=== PATIENT | female | born 1930 | race Caucasian/White ===

== ENCOUNTER → 2016-11-08 | Outpatient (CLI) | payer MEDICARE ==
--- NOTE | 2016-11-08 14:07 | US ---
EXAMINATION TYPE: US carotid duplex BILAT DATE OF EXAM: 11/08/2016 COMPARISON: NONE CLINICAL HISTORY: R42 VERTIGO,I65.23 CAROTID STENOSIS. Vertigo EXAM MEASUREMENTS: RIGHT: Peak Systolic Velocity (PSV) cm/sec ----- Right CCA: 93.0 ----- Right ICA: 109.5 ----- Right ECA: 96.3 ICA/CCA ratio: 1.2 RIGHT: End Diastole cm/sec ----- Right CCA: 14.9 ----- Right ICA: 25.4 ----- Right ECA: 0.0 LEFT: Peak Systolic Velocity (PSV) cm/sec ----- Left CCA: 76.5 ----- Left ICA: 109.5 ----- Left ECA: 139.9 ICA/CCA ratio: 1.4 LEFT: End Diastole cm/sec ----- Left CCA: 11.7 ----- Left ICA: 26.7 ----- Left ECA: 0.0 VERTEBRALS (direction of flow): Right Vertebral: Antegrade Left Vertebral: Antegrade No significant stenosis seen Some intimal thickening may be present within the right common carotid artery. Intimal thickening may be present within the left common carotid artery. IMPRESSION: 1. No significant flow-limiting stenosis. Criteria for Assigning % of Stenosis / Diameter reduction (Estimation based on the indirect measurements of the internal carotid artery velocities (ICA PSV). 1. Normal (no stenosis)=ICA PSV < 125 cm/s: ratio < 2.0: ICA EDV<40 cm/s. 2. Less than 50% stenosis=ICA PSV < 125 cm/s: ratio < 2.0: ICA EDV<40 cm/s. 3. 50 to 69% stenosis=ICA PSV of 125 to 230 cm/s: ration 2.0 ? 4.0: ICA EDV 40-100 cm/s. 4. Greater than 70% stenosis to near occlusion= ICA PSV > 230 cm/s: ratio > 4.0: ICA EDV > 100 cm/s. 5. Near occlusion= ICA PSV velocities may be low or undetectable: variable ratio and ICA EDV. 6. Total occlusion=unable to detect flow.
== END | disposition home or self-care (01) ==
LOC: RADUSWWP 13:34
PROVIDERS: ATTEND Family Medicine
DX: I65.23 Occlusion and stenosis of bilateral carotid arteries (principal)
CPT/HCPCS: 93880

== ENCOUNTER 2016-11-11 12:01 | Inpatient (IN) | payer MEDICARE ==
[2016-11-11] MEDS ORDERED: NITROGLYCERIN OINT 1 INCH/GM PACKET TOPICAL STA (12:23)
[2016-11-11] MEDS ORDERED: ASPIRIN 81 MG CHEW PO STA (12:23)
--- NOTE | 2016-11-11 12:27 | ED ---
General Adult HPI - General Chief complaint: Chest Pain Stated complaint: Chest Pain Time Seen by Provider: 11/11/16 12:09 Source: patient, family, RN notes reviewed Mode of arrival: wheelchair Limitations: altered mental status - History of Present Illness Initial comments: Patient is a pleasant 86-year-old female presenting to the emergency Department with chest pain. Patient is somewhat a poor story and and majority of history is taken from family. Patient did complain of some back discomfort earlier however this is a chronic problem and unchanged. Patient did have some chest discomfort around 8:30. Patient did appear to be slightly short of breath at that time. Patient states at this time discomfort is only with breaths. Patient does not feel short of breath at this time. Patient again states her back discomfort is chronic and unchanged. - Related Data Home Medications Medication Instructions Recorded Confirmed ALPRAZolam [Xanax] 0.25 mg PO BID 11/11/16 11/11/16 Aspirin 325 mg PO DAILY 11/11/16 11/11/16 Bimatoprost [Lumigan .01% Ophth 1 drop BOTH EYES BID 11/11/16 11/11/16 Soln] Cranberry Fruit Extract [Cranberry] 400 mg PO DAILY 11/11/16 11/11/16 Cyanocobalamin (Vitamin B-12) 1,000 mcg PO DAILY 11/11/16 11/11/16 [Vitamin B-12] Doxylamine Succinate [Unisom] 25 mg PO HS 11/11/16 11/11/16 Meclizine HCl 25 mg PO BID 11/11/16 11/11/16 Sertraline HCl [Zoloft] 100 mg PO DAILY 11/11/16 11/11/16 Simvastatin [Zocor] 20 mg PO DAILY 11/11/16 11/11/16 Travoprost [Travatan Z 0.004%] 1 drop BOTH EYES HS 11/11/16 11/11/16 Ubidecarenone [Co Q-10] 100 mg PO DAILY 11/11/16 11/11/16 Allergies Allergy/AdvReac Type Severity Reaction Status Date / Time No Known Allergies Allergy Verified 11/11/16 12:18 Review of Systems ROS Statement: Those systems with pertinent positive or pertinent negative responses have been documented in the HPI. ROS Other: All systems not noted in ROS Statement are negative. Constitutional: Denies: fever Eyes: Denies: eye pain ENT: Denies: ear pain Respiratory: Denies: cough Cardiovascular: Reports: chest pain Endocrine: Denies: fatigue Gastrointestinal: Denies: abdominal pain Genitourinary: Denies: dysuria Musculoskeletal: Reports: back pain (Chronic) Skin: Denies: rash Neurological: Denies: weakness Past Medical History Past Medical History: CVA/TIA History of Any Multi-Drug Resistant Organisms: None Reported Past Surgical History: Orthopedic Surgery Additional Past Surgical History / Comment(s): BL hip replacement, cataract Past Psychological History: Depression Smoking Status: Never smoker Past Alcohol Use History: None Reported Past Drug Use History: None Reported General Exam Limitations: no limitations General appearance: alert, in no apparent distress Head exam: Present: atraumatic Eye exam: Present: normal appearance, PERRL ENT exam: Present: normal oropharynx Neck exam: Present: normal inspection Respiratory exam: Present: normal lung sounds bilaterally. Absent: chest wall tenderness Cardiovascular Exam: Present: regular rate, normal rhythm Expanded Peripheral pulses: 2+: Radial (R), Radial (L), Posterior Tibialis (R), Posterior Tibialis (L) GI/Abdominal exam: Present: soft. Absent: tenderness Extremities exam: Present: normal inspection. Absent: pedal edema, calf tenderness Back exam: Present: normal inspection Neurological exam: Present: alert Psychiatric exam: Present: normal affect, normal mood Skin exam: Present: normal color Course Vital Signs 11/11/16 11/11/16 11/11/16 12:04 12:42 13:07 Temperature 97.8 F Pulse Rate 97 78 Pulse Rate [ 78 Right Radial] Respiratory 17 18 Rate Blood Pressure 121/60 136/72 O2 Sat by Pulse 93 L 96 Oximetry 11/11/16 14:07 Temperature 98.9 F Pulse Rate 85 Pulse Rate [ Right Radial] Respiratory 18 Rate Blood Pressure 142/75 O2 Sat by Pulse 96 Oximetry - Reevaluation(s) Reevaluation #1: 11/11/16 12:27 No old EKG available 11/11/16 12:48 Repeat EKG shows normal sinus rhythm 82. DC 144. QRS 74. QT 384. QTC 448. Normal axis. Normal QRS. Early repolarization. EKG Findings - EKG Comments: EKG Findings:: Normal sinus rhythm 87. DC 138. QRS 74. QT 374. QTC 450. Normal axis. Normal QRS. Early repolarization changes. Medical Decision Making - Medical Decision Making Patient reevaluated and resting comfortably in bed. Only mild discomfort at this time. family updated on results and plan. Case was discussed in detail with Dr. Shin, who will admit his patient with cardiology consult. He states he did receive a recent urine culture from this patient showing E. coli and requests Levaquin. - Lab Data Result diagrams: 11/11/16 12:37 11/11/16 12:37 Lab Results 11/11/16 11/11/16 11/11/16 Range/Units 12:37 12:37 12:37 WBC 15.6 H (3.8-10.6) k/uL RBC 4.30 (3.80-5.40) m/uL Hgb 13.3 (11.4-16.0) gm/dL Hct 38.5 (34.0-46.0) % MCV 89.5 (80.0-100.0) fL MCH 30.8 (25.0-35.0) pg MCHC 34.4 (31.0-37.0) g/dL RDW 13.8 (11.5-15.5) % Plt Count 251 (150-450) k/uL Neutrophils % 90 % Lymphocytes % 5 % Monocytes % 4 % Eosinophils % 0 % Basophils % 0 % Neutrophils # 14.1 H (1.3-7.7) k/uL Lymphocytes # 0.8 L (1.0-4.8) k/uL Monocytes # 0.6 (0-1.0) k/uL Eosinophils # 0.0 (0-0.7) k/uL Basophils # 0.0 (0-0.2) k/uL PT (9.0-12.0) sec INR (<1.2) APTT (22.0-30.0) sec D-Dimer (<0.60) mg/L FEU Sodium 138 (137-145) mmol/L Potassium 4.3 (3.5-5.1) mmol/L Chloride 105 (98-107) mmol/L Carbon Dioxide 23 (22-30) mmol/L Anion Gap 10 mmol/L BUN 16 (7-17) mg/dL Creatinine 0.74 (0.52-1.04) mg/dL Est GFR (MDRD) Af Amer >60 (>60 ml/min/1.73 sqM) Est GFR (MDRD) Non-Af >60 (>60 ml/min/1.73 sqM) Glucose 136 H (74-99) mg/dL Calcium 9.2 (8.4-10.2) mg/dL Magnesium 2.0 (1.6-2.3) mg/dL Total Bilirubin 1.1 (0.2-1.3) mg/dL AST 24 (14-36) U/L ALT 27 (9-52) U/L Alkaline Phosphatase 101 (38-126) U/L Total Creatine Kinase 42 (30-135) U/L CK-MB (CK-2) 0.9 (0.0-2.4) ng/mL CK-MB (CK-2) Rel Index 2.1 Troponin I <0.012 (0.000-0.034) ng/mL NT-Pro-B Natriuret Pep pg/mL Total Protein 7.0 (6.3-8.2) g/dL Albumin 4.1 (3.5-5.0) g/dL 11/11/16 11/11/16 Range/Units 12:37 12:37 WBC (3.8-10.6) k/uL RBC (3.80-5.40) m/uL Hgb (11.4-16.0) gm/dL Hct (34.0-46.0) % MCV (80.0-100.0) fL MCH (25.0-35.0) pg MCHC (31.0-37.0) g/dL RDW (11.5-15.5) % Plt Count (150-450) k/uL Neutrophils % % Lymphocytes % % Monocytes % % Eosinophils % % Basophils % % Neutrophils # (1.3-7.7) k/uL Lymphocytes # (1.0-4.8) k/uL Monocytes # (0-1.0) k/uL Eosinophils # (0-0.7) k/uL Basophils # (0-0.2) k/uL PT 10.3 (9.0-12.0) sec INR 1.0 (<1.2) APTT 19.1 L (22.0-30.0) sec D-Dimer 0.60 H (<0.60) mg/L FEU Sodium (137-145) mmol/L Potassium (3.5-5.1) mmol/L Chloride (98-107) mmol/L Carbon Dioxide (22-30) mmol/L Anion Gap mmol/L BUN (7-17) mg/dL Creatinine (0.52-1.04) mg/dL Est GFR (MDRD) Af Amer (>60 ml/min/1.73 sqM) Est GFR (MDRD) Non-Af (>60 ml/min/1.73 sqM) Glucose (74-99) mg/dL Calcium (8.4-10.2) mg/dL Magnesium (1.6-2.3) mg/dL Total Bilirubin (0.2-1.3) mg/dL AST (14-36) U/L ALT (9-52) U/L Alkaline Phosphatase (38-126) U/L Total Creatine Kinase (30-135) U/L CK-MB (CK-2) (0.0-2.4) ng/mL CK-MB (CK-2) Rel Index Troponin I (0.000-0.034) ng/mL NT-Pro-B Natriuret Pep 785 pg/mL Total Protein (6.3-8.2) g/dL Albumin (3.5-5.0) g/dL - Radiology Data Radiology results: report reviewed (Computed tomography scan of the chest shows no pulmonary embolism. Possible mild CHF/interstitial changes/atelectasis/ consolidation.), image reviewed (Two-view chest x-ray shows mild cardiomegaly.) Disposition Clinical Impression: Chest pain, Urinary tract infection Disposition: ADMITTED IP TO THIS HOSP Referrals: Nima Shin MD [Primary Care Provider] - 1-2 days Decision Time: 15:30
[2016-11-11 13:04] LABS: Basophils % (A) 0 %; CHCM 33.7; Eosinophils % (A) 0 %; HCT 38.5 % (34.0-46.0); HDW 2.75; HGB 13.3 gm/dL (11.4-16.0); Luc # (Auto) 0.08; Luc % (Auto) 1; Lymphocytes # (A) 0.8 k/uL (1.0-4.8); Lymphocytes % (A) 5 %; MCH 30.8 pg (25.0-35.0); MCHC 34.4 g/dL (31.0-37.0); MCV 89.5 fL (80.0-100.0); Monocytes # (A) 0.6 k/uL (0-1.0); Monocytes % (A) 4 %; Neutrophils # (A) 14.1 k/uL (1.3-7.7); Neutrophils % (A) 90 %; RDW 13.8 % (11.5-15.5); WBC 15.6 k/uL (3.8-10.6)
[2016-11-11 13:09] LABS: ALT 27 U/L (9-52); AST 24 U/L (14-36); Alkaline Phosphatase 101 U/L (38-126); Anion Gap 10 mmol/L; Blood Urea Nitrogen 16 mg/dL (7-17); Calcium 9.2 mg/dL (8.4-10.2); Carbon Dioxide 23 mmol/L (22-30); Chloride 105 mmol/L (98-107); Glucose 136 mg/dL (74-99); Non-African American GFR(MDRD) >60 (>60 ml/min/1.73 sqM); Potassium 4.3 mmol/L (3.5-5.1); Sodium 138 mmol/L (137-145); Total Bilirubin 1.1 mg/dL (0.2-1.3)
--- NOTE | 2016-11-11 13:11 | XR ---
EXAMINATION TYPE: XR chest 2V DATE OF EXAM: 11/11/2016 COMPARISON: NONE HISTORY: Intermittent chest pain for one month. TECHNIQUE: Frontal and lateral views of the chest are obtained. FINDINGS: Reticular interstitial changes are present bilaterally. There is elevated right hemidiaphra gm. There is right basilar linear scarring or atelectasis. There is no pleural effusion or pneumothor ax seen bilaterally. The cardiac silhouette size is mildly enlarged. The osseous structures are de mineralized. Underlying scoliosis is noted. Atherosclerotic change in abdominal aorta is present. IMPRESSION: Mild cardiomegaly with reticular interstitial changes bilaterally suggesting fibrosis, c an be confirmed with outside chest x-ray if available. No suspicious focal infiltrate is clearly seen .
[2016-11-11 13:14] LABS: Prothrombin Time 10.3 sec (9.0-12.0)
[2016-11-11 13:20] LABS: Creatine Kinase 42 U/L (30-135)
[2016-11-11 13:33] LABS: Creatine Kinase MB 0.9 ng/mL (0.0-2.4); Partial Thromboplastin Time 19.1 sec (22.0-30.0); Troponin I <0.012 ng/mL (0.000-0.034)
[2016-11-11] MEDS ORDERED: RX INFO: IV CONTRAST WAS GIVEN 1 EACH MISC MISCELLANE PRN (14:03)
--- NOTE | 2016-11-11 14:46 | CT ---
EXAMINATION TYPE: CT angio chest DATE OF EXAM: 11/11/2016 COMPARISON: NONE HISTORY: Chest pain/back pain-radiating into neck CT DLP: 488 mGycm. Automated Exposure Control for Dose Reduction was Utilized. CONTRAST: CTA scan of the thorax is performed with IV Contrast, patient injected with 100 mL of Omnipaque 300, pulmonary embolism protocol. MIP Images are created on CT scanner and reviewed. FINDINGS: LUNGS: Elevated right hemidiaphragm is present. There is background of moderate emphysematous change. Reticular interstitial changes bilaterally with groundglass opacity is suggestive of alveolar and in terstitial edema. Some mild scattered fibrosis is present. There is focal atelectasis or consolidatio n laterally in the right midlung. Respiratory motion artifact degradation is present. There is atelec tatic change or consolidation medially in the left lower lobe extending from hilum. No pleural effusi on or pneumothorax is present bilaterally. MEDIASTINUM: There is satisfactory enhancement of the pulmonary artery and its branches, there is no CT evidence for pulmonary embolism. There are no greater than 1 cm hilar or mediastinal lymph nodes. No significant pericardial effusion is seen. There is cardiomegaly with moderate left atrial and m ild to moderate left ventricular dilatation. Calcification along the mitral valve is present. Coronar y artery calcification is seen which is noted marker for coronary artery disease. Ascending aorta jeff sures 3.2 cm in diameter. Slightly ectatic course descending aorta is noted. OTHER: There is moderate size hiatal hernia. Underlying scoliosis in the lumbar spine is present. The re is multilevel spurring and disc space narrowing. IMPRESSION: 1. No CT evidence for pulmonary embolism. 2. Suspect CHF exacerbation as there is cardiomegaly with mild alveolar and interstitial edema felt p resent. Clinical correlation advised. There is background mild emphysematous change and scattered fib rosis with areas of focal atelectasis and/or consolidation present bilaterally. Clinical correlation to exclude acute infectious process advised.
[2016-11-11] MEDS ORDERED: NITROGLYCERIN SL TABS 0.4 MG TAB SUBLINGUAL PRN (15:39)
[2016-11-11] MEDS: LEVOFLOXACIN 750MG-D5W PMX 750 MG in DEXTROSE/WATER 1 150ML.BAG IVPB SCH (16:01)
[2016-11-11] MEDS: NITROGLYCERIN OINT 1 INCH/GM PACKET TOPICAL SCH (18:19)
[2016-11-11 19:32] LABS: Creatine Kinase 50 U/L (30-135)
[2016-11-11 19:45] LABS: Creatine Kinase MB 0.9 ng/mL (0.0-2.4); Troponin I <0.012 ng/mL (0.000-0.034)
[2016-11-11] MEDS ORDERED: NON-FORMULARY DRUG (Travoprost [Travatan Z 0.004%] 1 DROP) BOTH EYES SCH (21:00)
[2016-11-11] MEDS: LATANOPROST 0.005% OPHTH DROPS 2.5 ML BTL BOTH EYES SCH (21:07)
[2016-11-11] MEDS: traMADol 50 MG TAB PO PRN (21:08)
[2016-11-11] MEDS: MECLIZINE 25 MG TAB PO SCH (21:08)
[2016-11-11] MEDS: ATORVASTATIN 10 MG TAB PO SCH (21:08)
[2016-11-11] MEDS: SERTRALINE 100 MG TAB PO SCH (21:08)
[2016-11-12 00:39] LABS: Creatine Kinase 74 U/L (30-135)
[2016-11-12 00:53] LABS: Creatine Kinase MB 1.6 ng/mL (0.0-2.4); Troponin I <0.012 ng/mL (0.000-0.034)
[2016-11-12] MEDS: ALPRAZolam 0.25 MG TAB PO SCH ×3 (01:37→23:01)
[2016-11-12] MEDS: traMADol 50 MG TAB PO PRN ×2 (01:38→23:01)
[2016-11-12] MEDS: NITROGLYCERIN OINT 1 INCH/GM PACKET TOPICAL SCH ×2 (01:38→06:28)
[2016-11-12 04:57] LABS: Cholesterol 196 mg/dL (<200); HDL Cholesterol 55 mg/dL (40-60); Triglycerides 81 mg/dL (<150)
[2016-11-12] MEDS ORDERED: SODIUM CHLORIDE 0.9% 500 ML IV ONE (07:40)
[2016-11-12] MEDS ORDERED: IBUPROFEN 400 MG TAB PO PRN (08:26)
--- NOTE | 2016-11-12 08:29 | P.CON ---
Consult Note - . Consult date: 11/12/16 Assessment/Plan:: HISTORY OF PRESENTING ILLNESS: The patient is a pleasant 86-year-old female who presented with chest pain. Her ED notes majority of history is taken from family. Upon examination patient is seen resting comfortably in bed in no acute distress center at the bedside. She she complains vague symptoms of chest pain not associated with nausea, vomiting, dizziness, palpitations or diaphoresis. The pain is reproducible in nature and worse on deep inspiration. She denies any cardiac history although she is having history of dementia and is a poor historian. She was also found to have a urinary tract infection. EKG evaluation shows minor ST elevation, early repolarization. No old EKG computer for comparison, will request old EKG from Dr. Shin office. Patient's past medical history is: 1. CVA/TIA. 2. Vertigo. 3. Hyperlipidemia. 4. Depression. Patient's past surgical history is: 1. Bilateral hip replacement. 2. Cataract surgery. Patient's home medications include Zoloft 100 mg by mouth daily, Xanax 0.25 mg by mouth twice a day, Zocor 20 mg by mouth daily, meclizine 25 mg by mouth twice a day aspirin 325 mg by mouth daily. ALLERGIES: NKDA. SOCIAL HISTORY: Never smoker, denies alcohol use. FAMILY HISTORY: Patient denies. REVIEW OF SYSTEMS: No shortness of breath. No diaphoresis. He denies headache, dizziness, blurred vision, double vision. No dyspnea on exertion. Patient denies any stomach discomfort. No nausea, vomiting. No hematochezia. No hematemesis. Denies any black stools or blood in his stools. No syncope. No palpitations. No cough. No recent fever or chills. Denies dysuria or hematuria. No muscle weakness or numbness. PHYSICAL EXAMINATION: This is a 86-year-old female in no apparent distress at the time of my examination. Blood pressure 114/57, heart rate 70, respirations 18, temp 98.1, pulse oxygenation 94% % on room air. HEENT: Head is atraumatic, normocephalic. Pupils are equal, round. Sclerae anicteric. Conjunctivae are clear. Mucous membranes of the mouth are moist. Neck is supple. There is no jugular venous distention. No carotid bruit is heard. CHEST EXAMINATION: Lungs are clear to auscultation. Moderate chest wall tenderness is noted on palpation or with deep breathing. HEART EXAMINATION: Heart regular rate and rhythm. S1, S2 heard. No murmurs, gallops or rub. ABDOMEN: Soft, nontender. Bowel sounds are heard. No organomegaly noted. EXTREMITIES: 2+ peripheral pulses with no evidence of peripheral edema and no calf tenderness noted. NEUROLOGIC EXAMINATION: Patient is awake, alert and oriented x3. LABORATORY DATA: Hemoglobin 13.3, WBC 15.6, d-dimer 0.60, potassium 4.3, BUN 16 , creatinine 0.74, troponin negative 3, proBNP 785. FINAL ASSESSMENT AND PLAN: 1. Reproducible chest pain on deep inspiration. 2. Urinary tract infection. PLAN: Old EKG from Dr. Shin's office is normal sinus mechanism with no elevation or early repolarization. We will obtain echocardiogram, sedimentation rate, repeat 12-lead EKG. The possibility of pleural pericarditis cannot be ruled out at this time. Anti-inflammatory pain control will be added. We will continue to follow this patient and make changes based on her clinical course. Nurse Practitioner note has been reviewed, I agree with a documented findings and plan of care. Patient was seen and examined.
[2016-11-12] MEDS: ASPIRIN 325 MG TAB PO SCH (08:35)
[2016-11-12] MEDS: MECLIZINE 25 MG TAB PO SCH ×2 (08:35→23:01)
[2016-11-12] MEDS: SERTRALINE 100 MG TAB PO SCH (08:35)
--- NOTE | 2016-11-12 08:47 | HP ---
CHIEF COMPLAINT: Nonspecific chest pain. This is an 86-year-old white female who presented to the hospital with nonspecific chest pain and was evaluated, just did not feel good, was placed in the hospital accordingly. It had been going on for about a 24 to 48 period of time. She has no known allergies. Her medications include: 1. Aspirin 325 daily. 2. She takes Xanax 0.25 daily. 3. Cranberry vitamin b.i.d. 4. She is on Lumigan eye drops p.r.n. 5. Simvastatin 20 mg daily. 6. Antivert 25 three times a day. She recently had an urinary tract infection that was also positive. Came back for E. Coli. She was placed in the hospital now and started on antibiotics accordingly. She recently had a carotid Doppler at the hospital and has a moderate amount of obstruction. An appointment with Dr. Moreland is being set up. SURGICAL HISTORY: Basically is no surgery. FAMILY HISTORY: Noncontributory. SOCIAL HISTORY: Nondrinker and nonsmoker. Lives in a family home care setting. She does have a history of fair amount of vertigo, which has been long- standing. Patient is fairly new to me with minimal amount of information available. REVIEW OF SYSTEMS: CARDIOPULMONARY: Nonspecific discomfort, going through to the back with some shortness of breath with negative chest x-ray. No dyspnea. No orthopnea. No paroxysmal nocturnal dyspnea. GI: No hematemesis, melena or hematochezia. : Negative. NEUROMUSCULAR: Just some generalized weakness with some vertigo that has been going on for a fair amount of time. PHYSICAL EXAMINATION: Blood pressure was 128/80, respiratory rate was 18, heart rate was in the 70s, temperature 98. EYES: Pupils are equal, round and reactive to light and accommodation. ENT showed tympanic membranes and pharynx to be negative. Neck is supple with midline tracheal. CHEST: Essentially clear to auscultation. HEART: Sinus rhythm. ABDOMEN: Soft, nontender with no organomegaly. Extremities have arthritis in her knees and her hands. Neurological examination is within normal limits. ASSESSMENT: 1. Nonspecific chest pain, rule out cardiac event. 2. History of labyrinthitis, chronic. 3. Some carotid stenosis. Plan at this time a day we will evaluate her, put her in overnight. Her basic lab work was within normal limits. Cardiology to see the patient in the morning. Will put her on a monitor. Prognosis is guarded. MTDD
--- NOTE | 2016-11-12 08:50 | P.PN ---
Progress Note - Text This is Dr. James dictating a brief addendum to the H&P dictated by nurse practitioner. Patient's chest x-ray and also on computed tomography scan showing interstitial changes consistent with fibrosis or inflammation process. Clinically patient does have rales at both bases. This could be on the basis of pulmonary fibrosis. A pulmonary consult is recommended for further evaluation. Her BNP level is within normal limits. The likelihood of congestive heart failure. Seems to be less likely. Echocardiogram is also being done.
[2016-11-12] MEDS: LATANOPROST 0.005% OPHTH DROPS 2.5 ML BTL BOTH EYES SCH ×2 (09:49→23:00)
[2016-11-12] MEDS ORDERED: LACTATED RINGERS 1,000 ML IV STA (11:48)
[2016-11-12] MEDS: SODIUM CHLORIDE TAB 1 GM TAB PO SCH ×3 (12:32→17:43)
[2016-11-12] MEDS: LEVOFLOXACIN 750MG-D5W PMX 750 MG in DEXTROSE/WATER 1 150ML.BAG IVPB SCH (16:29)
--- NOTE | 2016-11-12 17:14 | PN ---
Today she has had nonspecific chest pain. She does have some dementia but not a severe amount. She said it was nonspecific in the chest and continued throughout. Of interest, the most important thing is I saw the glimpse of pain on her face while she was there. I palpated her lateral chest wall in between especially ribs 4, 5 and 6 with pain and palpation. Her cardiac enzymes are negative. She did have some elevation of BNP. She does not have any previous history of big time heart failure in the past so she is being evaluated for that accordingly. Her troponins have been negative throughout. Her past medical history is that of some early dementia. She has hyperlipidemia. She has Xanax. She has some depression which is with some severe vertigo. Of interest, she just developed a urinary tract infection, came back positive yesterday, tried to call the family and found out that she was here in the emergency room. At this point of view, cardiopulmonary just nonspecific chest pain accordingly, back pain without fall. No shortness of breath. No dyspnea. No orthopnea. No paroxysmal nocturnal dyspnea. GI: No hematemesis, melena or hematochezia. : Negative. Neuromuscular: No problems with muscle strength. Able to walk on her own with some vertigo though. Psychiatric: Dementia with worse owner at night. Occasional depression which has been stable with anxiety that has been well controlled. She also has severe arthritis especially in the back. Physical examination right now is alert white female, well oriented to person and place and things. Says the pain has been nonspecific, just some chest pain. Blood pressure at this time shows a blood pressure of 115/80. Temperature 95.8. Pulse rate 75. Respiratory rate 18. Let it be noted that at midnight, her blood pressure was 86/40 and was not rechecked again on this floor by Essence the nurse at 4:00 a.m. and it was 83/43. At that time, nitro patch was removed according to the day nurse. I was never called about the situation. EYES: Pupils are equal, round and reactive to light and accommodation. ENT: Showed tympanic membranes. Pharynx to be negative. Neck is supple with midline trachea. Chest essentially clear to auscultation. She has palpable left lateral anterior chest pain to minimal palpation. Abdomen, soft. Heart is sinus rhythm. 2/6 holosystolic murmur over the aortic area. Chest is essentially clear to auscultation. Heart is sinus rhythm. Abdomen soft, nontender with no organomegaly. Lower extremities she has arthritis in her hands and her legs. 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 No palpable pain in the back on palpation. ASSESSMENT: 1. Chest pain, questionable etiology, probably chest wall. 2. Some progressive dementia. 3. History of vertigo, longstanding. 4. She has some carotid obstruction which needs to be cared for on an outpatient basis. 5. She also had a positive urine culture. Cardiology is to evaluate her. At this time, blood pressure is stable. Please refer to my orders. MTDD
[2016-11-12] MEDS: ATORVASTATIN 10 MG TAB PO SCH (23:01)
[2016-11-13] MEDS: SODIUM CHLORIDE TAB 1 GM TAB PO SCH ×3 (08:38→19:28)
[2016-11-13] MEDS: MECLIZINE 25 MG TAB PO SCH ×2 (08:38→20:16)
[2016-11-13] MEDS: ASPIRIN 325 MG TAB PO SCH (08:38)
[2016-11-13] MEDS: ALPRAZolam 0.25 MG TAB PO SCH ×2 (08:38→20:16)
[2016-11-13] MEDS: SERTRALINE 100 MG TAB PO SCH (08:38)
[2016-11-13] MEDS: LATANOPROST 0.005% OPHTH DROPS 2.5 ML BTL BOTH EYES SCH ×2 (08:39→20:16)
--- NOTE | 2016-11-13 10:02 | ECHOF ---
Referral Reason:chest pain MEASUREMENTS -------- HEIGHT: 157.5 cm WEIGHT: 61.7 kg BP: 114/57 RVIDd: 2.4 cm (< 3.3) IVSd: 0.9 cm (0.6 - 1.1) LVIDd: 4.4 cm (3.9 - 5.3) LVPWd: 1.0 cm (0.6 - 1.1) IVSs: 1.6 cm LVIDs: 2.3 cm LVPWs: 1.5 cm LAESV Index (A-L): 29.10 ml/m Ao Diam: 3.0 cm (2.0 - 3.7) AV Cusp: 1.5 cm (1.5 - 2.6) LA Diam: 4.3 cm (2.7 - 3.8) MV EXCURSION: 12.842 mm (> 18.000) MV EF SLOPE: 109 mm/s (70 - 150) EPSS: 1.2 cm MV E García: 1.11 m/s MV DecT: 276 ms MV A García: 0.96 m/s MV E/A Ratio: 1.16 AR PHT: 739 ms RAP: 5.00 mmHg RVSP: 15.58 mmHg FINDINGS -------- Sinus rhythm. This was a technically adequate study. Overall left ventricular systolic function is normal with, an EF between 55 - 60 %. The right ventricle is normal in size and function. LA is midly dilated 29-33ml/m2. The right atrium is normal in size. Aortic valve is trileaflet and is mildly thickened. Trace to mild aortic regurgitation. The aortic pressure half-time by doppler is 739ms. There is no evidence of aortic stenosis. The mitral valve leaflets are mildly thickened. Mild mitral annular calcification present. There is trace to mild mitral regurgitation. Trace tricuspid regurgitation present. There is no evidence of pulmonary hypertension. The right ventricular systolic pressure, as measured by Doppler, is 15.58mmHg. Trace/mild (physiologic) pulmonic regurgitation. The aortic root size is normal. Normal inferior vena cava with normal inspiratory collapse consistent with estimated right atrial pressure of 5 mmHg. The pericardium is normal. There is no pericardial effusion. CONCLUSIONS -------- 1. Sinus rhythm. 2. There is trace to mild mitral regurgitation. 3. Trace tricuspid regurgitation present. 4. There is no evidence of pulmonary hypertension. 5. The right ventricular systolic pressure, as measured by Doppler, is 15.58mmHg. 6. Trace/mild (physiologic) pulmonic regurgitation. 7. The aortic root size is normal. 8. There is no pericardial effusion. 9. This was a technically adequate study. 10. Overall left ventricular systolic function is normal with, an EF between 55 - 60 %. 11. LA is midly dilated 29-33ml/m2. 12. Aortic valve is trileaflet and is mildly thickened. 13. Trace to mild aortic regurgitation. 14. The aortic pressure half-time by doppler is 739ms. 15. The mitral valve leaflets are mildly thickened. 16. Mild mitral annular calcification present. PLATEN PRESS FEEDER: Frederic Silvestre RDCS
[2016-11-13] MEDS ORDERED: FUROSEMIDE 10 MG/ML 2 ML VIAL IV ONE (10:41)
[2016-11-13] MEDS ORDERED: METOPROLOL TARTRATE 12.5 MG TAB PO STA (10:43)
[2016-11-13] MEDS: ALBUTEROL NEBULIZED 2.5 MG/3 ML INHALATION SCH ×3 (11:30→20:18)
--- NOTE | 2016-11-13 12:09 | XR ---
EXAMINATION TYPE: XR chest 2V DATE OF EXAM: 11/13/2016 COMPARISON: 11/11/16 HISTORY: Shortness of breath FINDINGS: Noted is pulmonary venous congestion with scattered infiltrates. There is also cardiomegaly and small effusions. IMPRESSION: Findings compatible with stable congestive failure. Infiltrates of other etiology are not excluded. Clinical correlation and progress studies are recommended.
--- NOTE | 2016-11-13 16:52 | PN ---
Walked into her room today and she is wheezing. She had no chest pain or shortness of breath at night time and just started wheezing now. There is some evidence of pulmonary fibrosis on her chest x-ray. This was illustrated by Dr. James. That could have something to do with a little bit of her shortness of breath. Blood pressure is still staying down a little bit. We added basically salt to her diet. REVIEW OF SYSTEMS: She has shortness of breath. No chest pain. No orthopnea. No paroxysmal nocturnal dyspnea at this time. She does say though where I pushed on her chest before is tender which is the left anterior chest. GI: No hematemesis, melena or hematochezia. : Negative. Neuromuscular: Weakness in her arms and legs and lower leg and lower abdomen area. PHYSICAL EXAMINATION: Vital signs: Blood pressure 102/55. Heart rate is in the 80s. Respiratory rate is 18. Temperature is 98.2. Eyes: Pupils are equal , round and reactive to light and accommodation. ENT: Tympanic membranes and pharynx to be negative. Neck is supple with midline trachea. Chest essentially clear to auscultation except for some wheezing anteriorly. Early inspirations. Heart is sinus rhythm. No murmurs. Abdomen soft, nontender. No organomegaly. Room air at 94%. ASSESSMENT: 1. Chest pain, probably chest wall. 2. Pulmonary fibrosis. 3. Hypertension felt to be orthostatic hypotension. 4. Vertigo, probably secondary from labyrinthitis and hypotension. 5. Glaucoma which is stable. 6. 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 8. Carotid obstruction. PLAN: The carotid obstruction will be taken care of on an outpatient basis. We will increase salt intake. Updrafts with Albuterol 2.5 every six hours was added. Await further recommendations from cardiology. MIGUELINAD
[2016-11-13] MEDS: ATORVASTATIN 10 MG TAB PO SCH (20:16)
--- NOTE | 2016-11-14 06:20 | P.PN ---
Subjective Principal diagnosis: Chest pain and CHF This 86-year-old female was admitted to the hospital with complaints of pleuritic chest pain. Initial chest x-ray was showing findings of possible CHF versus pulmonary fibrosis. Today patient is noted to have wheezing. Examination showed jugular venous distention. Patient is not complaining of any shortness of breath, but she has dementia. I'm going to repeat the chest x- ray and also BNP levels. I'm going to treat her with Lasix IV 20 mg. If necessary, we'll continue the Lasix on a daily basis. Her echocardiogram showed normal LV function without any significant valvular abnormalities. The etiology for CHF is not entirely clear. Could be based on diastolic dysfunction. The possibility of concomitant pulmonary fibrosis is to be constricted. We'll continue to monitor her with repeat chest x-rays. Objective - Vital Signs Vital signs: Vital Signs Temp 98.1 F 11/14/16 04:00 Pulse 80 11/14/16 04:00 Resp 18 11/14/16 04:00 BP 104/57 11/14/16 04:00 Pulse Ox 95 11/14/16 04:00 Intake & Output 11/13/16 11/13/16 11/14/16 06:59 18:59 06:59 Intake Total 240 640 200 Balance 240 640 200 Intake: Oral 240 640 200 Other: Voiding Method Toilet Toilet Toilet # Voids 2 1 1 - Labs CBC & Chem 7: 11/11/16 12:37 11/11/16 12:37 Assessment and Plan (1) Diastolic CHF, acute Status: Acute (2) Dementia Status: Acute (3) Chest pain Status: Acute Plan: We'll get a repeat chest x-ray and BNP levels. I will treat her with IV Lasix. Make sure that patient is KVO and IV fluids. Further recommendation will depend upon the clinical course
[2016-11-14] MEDS: ALBUTEROL NEBULIZED 2.5 MG/3 ML INHALATION SCH ×4 (07:14→19:25)
[2016-11-14 07:22] LABS: Basophils % (A) 0 %; CH 30.1; CHCM 33.6; Eosinophils # (A) 0.3 k/uL (0-0.7); Eosinophils % (A) 3 %; HCT 36.6 % (34.0-46.0); HDW 2.79; HGB 12.3 gm/dL (11.4-16.0); Luc # (Auto) 0.14; Luc % (Auto) 2; Lymphocytes % (A) 23 %; MCH 30.2 pg (25.0-35.0); MCHC 33.6 g/dL (31.0-37.0); Mean Platelet Volume 7.6; Monocytes # (A) 0.6 k/uL (0-1.0); Monocytes % (A) 6 %; Neutrophils % (A) 66 %; RBC 4.07 m/uL (3.80-5.40); RDW 13.8 % (11.5-15.5); WBC (Perox) 9.39
[2016-11-14 07:47] LABS: ALT 28 U/L (9-52); AST 28 U/L (14-36); Alkaline Phosphatase 74 U/L (38-126); Anion Gap 8 mmol/L; Blood Urea Nitrogen 14 mg/dL (7-17); Calcium 8.5 mg/dL (8.4-10.2); Carbon Dioxide 23 mmol/L (22-30); Chloride 105 mmol/L (98-107); Glucose 89 mg/dL (74-99); Non-African American GFR(MDRD) >60 (>60 ml/min/1.73 sqM); Potassium 3.8 mmol/L (3.5-5.1); Sodium 136 mmol/L (137-145); Total Bilirubin 0.8 mg/dL (0.2-1.3); Total Protein 5.8 g/dL (6.3-8.2)
[2016-11-14] MEDS: ALPRAZolam 0.25 MG TAB PO SCH ×2 (08:45→20:48)
[2016-11-14] MEDS: LATANOPROST 0.005% OPHTH DROPS 2.5 ML BTL BOTH EYES SCH ×2 (08:45→20:47)
[2016-11-14] MEDS: SERTRALINE 100 MG TAB PO SCH (08:45)
[2016-11-14] MEDS: ASPIRIN 325 MG TAB PO SCH (08:45)
[2016-11-14] MEDS: SODIUM CHLORIDE TAB 1 GM TAB PO SCH ×3 (08:45→20:47)
[2016-11-14] MEDS: MECLIZINE 25 MG TAB PO SCH ×2 (08:45→20:47)
[2016-11-14] MEDS: LEVOFLOXACIN 750MG-D5W PMX 750 MG in DEXTROSE/WATER 1 150ML.BAG IVPB SCH (08:50)
[2016-11-14] MEDS: BUDESONIDE 0.5 MG/2 ML NEBU INHALATION SCH ×2 (08:53→19:25)
[2016-11-14] MEDS ORDERED: FUROSEMIDE 10 MG/ML 2 ML VIAL IV SCH (09:00)
--- NOTE | 2016-11-14 11:50 | PN ---
86-year-old female came in with nonspecific chest pain that progressed to shortness of breath. In general, cardiac disease related with myocardial infarction was ruled out as was angina. The patient had continuous chest pain on the left chest wall. While here she developed increasing shortness of breath along with wheeze. It was felt that this was a mild asthma component. Chest x-ray showed evidence of congestive heart failure when her BNP also went up from 700 to 2500. She was then started on IV Lasix. At this time she is improving. She has less shortness of breath though there is some mild confusion. Also, patient did have an echocardiogram which showed an ejection fraction of 55-60 with no pulmonary hypertension noted. Left ventricular function was within normal limits and in general there was minimal valvular disease. REVIEW OF SYSTEMS: CARDIOPULMONARY: No shortness of breath, chest pain or orthopnea. No paroxysmal nocturnal dyspnea. GI: No hematemesis, melena, hematochezia. : Has been urinating good. NEUROMUSCULAR: Just aches and pains in the back and the arms related with age and arthritis per patient. Still some chest wall pain on palpation on the left side per patient. Aide noticed that the patient had a fair amount of confusion at night and obviously has some evidence of sundowners disease. At this time for vital signs her blood pressure is 104/57, heart rate is in the 80's, respiratory rate 18 with temperature 98.1, pulse ox on room air 95. EYES: Pupils are equal, round, reactive to light and accommodation. ENT: Show tympanic membranes and pharynx to be negative. NECK: Supple with midline trachea. CHEST: Essentially clear with some decreased breath sounds lower. ABDOMEN: Soft, nontender with no organomegaly. HEART: Sinus rhythm. No murmur. ASSESSMENT: 1. Chest pain, probably chest wall. 2. Congestive heart failure. There is some asthma component. 3. History of some dementia with some sundowners at night. 4. Hypotension felt to be orthostatic hypotension. Her vertigo might be secondary from labyrinthitis or hypotension. 5. History of glaucoma. 6. There also is some carotid obstruction that will be evaluated in the outside. 7. Anxiety and neurosis. PLAN: Continue her Lasix. Continue her albuterol. Will try to keep up with her blood pressure as much as we can. There is some history of perhaps some pulmonary fibrosis but the recent chest x-ray is not conclusive. At this time she is doing fine. SAM
[2016-11-14 13:16] VITALS: BMI 24.9
[2016-11-14] MEDS: methylPREDNISolone SOD SUCCI 40 MG/ML 1 ML VIAL IV SCH ×2 (16:00→23:13)
[2016-11-14] MEDS ORDERED: methylPREDNISolone SOD SUCCI 125 MG/2 ML VIAL IV STA (16:01)
--- NOTE | 2016-11-14 16:24 | P.PN ---
Subjective Principal diagnosis: Chest pain and CHF This is a 86-year-old female was admitted to the hospital with atypical chest pain. Chest x-ray and computed tomography scan was size to of some pulmonary congestion and also some fibrosis. Patient was wheezing yesterday. She was given IV Lasix. Her lungs appeared to be less congested today. She doesn't seem to be in acute distress. Her blood pressures running low. We will hold off on IV Lasix for this at this time. Patient is also to evaluate for tile sorter performed by chriss. She is going to get some steroids Objective - Vital Signs Vital signs: Vital Signs Temp 98.0 F 11/14/16 15:57 Pulse 85 11/14/16 15:57 Resp 18 11/14/16 15:57 BP 85/46 11/14/16 15:57 Pulse Ox 94 L 11/14/16 15:57 Intake & Output 11/13/16 11/14/16 11/14/16 18:59 06:59 18:59 Intake Total 640 200 340 Balance 640 200 340 Weight 61.8 kg Intake: Oral 640 200 340 Other: Voiding Method Toilet Toilet # Voids 1 1 1 - Exam GENERAL EXAM: Patient is alert and oriented and doesn't appear to be in any acute distress HEENT: Normocephalic. Normal reaction of pupils, equal size, normal range of extraocular motion. No erythema or exudates in the throat. NECK: No masses, no nuchal rigidity. CHEST: No chest wall deformity. LUNGS: Mild expiratory wheezes but seemed to be improved compared to yesterday HEART: S1 and S2 normal with no audible mumurs or gallops. Regular rhythm, femorals equal on both sides.. ABDOMEN: No hepatosplenomegaly, normal bowel sounds, no guarding or rigidity. SKIN: No rashes CENTRAL NERVOUS SYSTEM: No focal deficits. EXTREMITIES: No cyanosis, clubbing or edema. - Labs CBC & Chem 7: 11/14/16 07:02 11/14/16 07:02 Labs: Abnormal Lab Results - Last 24 Hours (Table) 11/14/16 11/14/16 Range/Units 07:02 07:02 Sodium 136 L (137-145) mmol/L Total Protein 5.8 L (6.3-8.2) g/dL Albumin 3.0 L (3.5-5.0) g/dL Rheumatoid Factor 13 H (<12) IU/mL Assessment and Plan (1) Diastolic CHF, acute Status: Acute (2) Dementia Status: Acute (3) Chest pain Status: Acute Plan: Continue current medical therapy. Hold Lasix. We'll start her on by mouth Lasix if Her blood pressure stable, from tomorrow.
--- NOTE | 2016-11-14 16:49 | P.CNPUL ---
History of Present Illness Consult date: 11/14/16 Requesting physician: Nima Shin Reason for consult: dyspnea Chief complaint: shortness of breath History of present illness: This is an 86-year-old female patient being seen and examined today. This patient came into the emergency room with nonspecific chest pain and generalized malaise. Patient states she also has been short of breath the last 2 or 3 days it has significantly gotten worse. Patient was noted to have some chest discomfort with deep breathing. Laboratory and radiologic reports been reviewed. She was noted to have an elevated BNP level. Patient was given IV Lasix. Upon examination the patient's resting up in bed on on room air patient states she gets short of breath with exertion. She is currently afebrile. The patient also had a positive urine culture and her primary care physician's office recently, subsequently the patient was started on Levaquin. Chest x-ray has been reviewed and shows stable CHF, pulmonary venous congestion with scattered infiltrates, cardiomegaly and small effusions. Patient also noted to have some pulmonary fibrosis. 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 Review of Systems 14 point review of systems was completed and is negative unless noted above in the HPI. 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 History of Any Multi-Drug Resistant Organisms: None Reported Past Surgical History: Orthopedic Surgery, Tonsillectomy Additional Past Surgical History / Comment(s): X2 RT hip replacement, cataract Past Anesthesia/Blood Transfusion Reactions: No Reported Reaction Smoking Status: Never smoker - Past Family History Sister(s) Family Medical History: Cancer Additional Family Medical History / Comment(s): BREAST CANCER Father Family Medical History: No Reported History Additional Family Medical History / Comment(s): FROM OLD AGE Medications and Allergies Home Medications Medication Instructions Recorded Confirmed Type ALPRAZolam [Xanax] 0.25 mg PO BID 11/11/16 11/11/16 History Aspirin 325 mg PO DAILY 11/11/16 11/11/16 History Bimatoprost [Lumigan .01% Ophth 1 drop BOTH EYES BID 11/11/16 11/11/16 History Soln] Cranberry Fruit Extract [Cranberry] 400 mg PO DAILY 11/11/16 11/11/16 History Cyanocobalamin (Vitamin B-12) 1,000 mcg PO DAILY 11/11/16 11/11/16 History [Vitamin B-12] Doxylamine Succinate [Unisom] 25 mg PO HS 11/11/16 11/11/16 History Meclizine HCl 25 mg PO BID 11/11/16 11/11/16 History Sertraline HCl [Zoloft] 100 mg PO DAILY 11/11/16 11/11/16 History Simvastatin [Zocor] 20 mg PO DAILY 11/11/16 11/11/16 History Travoprost [Travatan Z 0.004%] 1 drop BOTH EYES HS 11/11/16 11/11/16 History Ubidecarenone [Co Q-10] 100 mg PO DAILY 11/11/16 11/11/16 History Allergies Allergy/AdvReac Type Severity Reaction Status Date / Time No Known Allergies Allergy Verified 11/11/16 12:18 Physical Exam Vitals: Vital Signs Temp Pulse Pulse Resp BP BP Pulse Ox 11/14/16 15:57 98.0 F 85 18 85/46 94 L 11/14/16 15:30 82 11/14/16 15:15 82 95 11/14/16 12:00 98.3 F 82 18 108/66 95 11/14/16 11:27 78 11/14/16 11:19 82 11/14/16 07:55 98.5 F 78 18 110/60 94 L 11/14/16 07:22 80 11/14/16 07:16 76 94 L 11/14/16 04:00 98.1 F 80 18 104/57 95 11/14/16 03:59 18 11/14/16 01:15 103/60 11/14/16 00:00 98.2 F 85 18 80/65 92 L 11/13/16 23:21 19 11/13/16 20:27 92 11/13/16 20:20 92 11/13/16 20:00 19 11/13/16 19:23 98.4 F 92 19 115/59 93 L Intake and Output 11/14/16 11/14/16 11/14/16 06:59 14:59 22:59 Intake Total 200 340 Balance 200 340 Intake: Oral 200 340 Other: Voiding Method Toilet # Voids 1 1 Weight 61.8 kg Patient Weight 11/15/16 06:59 Weight 61.8 kg GENERAL EXAM: Alert, intermittent confusion related to dementia, comfortable in no apparent distress. HEAD: Normocephalic. EYES: Normal reaction of pupils, equal size. NOSE: Clear with pink turbinates. THROAT: No erythema or exudates. NECK: No masses, no JVD. CHEST: No chest wall deformity. LUNGS: Lungs are noted to be diminished bilaterally, a pleural rub is noted in the left lower lobe, bilateral dry crackles present, bilateral wheezes noted. CVS: S1 and S2 normal with no audible mumurs, regular rhythm. ABDOMEN: No hepatosplenomegaly, normal bowel sounds, no guarding or rigidity. EXTREMITIES: Rheumatoid deviation noted to hands. No edema noted, pedal pulses palpable. SKIN: No rashes CENTRAL NERVOUS SYSTEM: No focal deficits, tone is normal in all 4 extremities. Results - Laboratory Findings CBC and BMP: 11/14/16 07:02 11/14/16 07:02 PT/INR, D-dimer PT 10.3 sec (9.0-12.0) 11/11/16 12:37 INR 1.0 (<1.2) 11/11/16 12:37 D-Dimer 0.60 mg/L FEU (<0.60) H 11/11/16 12:37 Abnormal lab findings: Abnormal Labs 11/11/16 11/11/16 11/11/16 12:37 12:37 12:37 WBC 15.6 H Neutrophils # 14.1 H Lymphocytes # 0.8 L ESR APTT 19.1 L D-Dimer 0.60 H Sodium Glucose 136 H Total Protein Albumin LDL Cholesterol, Calc Rheumatoid Factor 11/11/16 11/12/16 11/14/16 12:37 09:06 07:02 WBC Neutrophils # Lymphocytes # ESR 39 H APTT D-Dimer Sodium 136 L Glucose Total Protein 5.8 L Albumin 3.0 L LDL Cholesterol, Calc 125 H Rheumatoid Factor 11/14/16 11/14/16 07:02 07:02 WBC Neutrophils # Lymphocytes # ESR 35 H APTT D-Dimer Sodium Glucose Total Protein Albumin LDL Cholesterol, Calc Rheumatoid Factor 13 H - Diagnostic Findings Chest x-ray: report reviewed, image reviewed CT scan - chest: report reviewed, image reviewed Assessment and Plan Plan: Assessment Acute Hypoxic respiratory failure 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 We will add IV steroids to her current medications today with the intent to switch to oral and the next 24-48 hours. We will obtain labs for probable rheumatoid arthritis or connective tissue disorder. We will also obtain labs for hypersensitive pneumonitis and [place] ALLERGY panel to look for ALLERGIC asthma. Continue with pulmonary hygiene, coughing and deep breathing exercises , and supportive care. Supplemental oxygen to maintain oxygen saturations of 92 % or better. Continue nebulizer treatments. GI and DVT prophylaxis. We will continue to monitor labs/results and adjust treatment as necessary. Further recommendations pending. I performed an examination of the patient and discussed their management with the nurse practitioner. I have reviewed the nurse practitioner's note and agree with the documented findings and plan of care.
[2016-11-14] MEDS: ATORVASTATIN 10 MG TAB PO SCH (20:47)
[2016-11-14 21:21] LABS: Glucose,Whole Blood 172 mg/dL (75-99)
[2016-11-14 21:51] LABS: Glucose,Whole Blood 157 mg/dL (75-99)
[2016-11-14 22:35] LABS: Hemoglobin A1C 5.8 % (4.2-6.1)
[2016-11-15] MEDS ORDERED: ALPRAZolam 0.5 MG TAB PO PRN (00:36)
[2016-11-15 07:31] LABS: Glucose,Whole Blood 160 mg/dL (75-99)
[2016-11-15] MEDS: SERTRALINE 100 MG TAB PO SCH (07:48)
[2016-11-15] MEDS: methylPREDNISolone SOD SUCCI 40 MG/ML 1 ML VIAL IV SCH ×3 (07:48→23:29)
[2016-11-15] MEDS: SODIUM CHLORIDE TAB 1 GM TAB PO SCH ×3 (07:48→17:38)
[2016-11-15] MEDS: MECLIZINE 25 MG TAB PO SCH ×2 (07:48→20:56)
[2016-11-15] MEDS: ASPIRIN 325 MG TAB PO SCH (07:48)
[2016-11-15] MEDS: INSULIN LISPRO (humaLOG) 300 UNIT/3 ML VIAL SQ SCH ×4 (07:48→20:59)
[2016-11-15] MEDS: ALPRAZolam 0.25 MG TAB PO SCH ×2 (07:48→20:56)
[2016-11-15] MEDS: LATANOPROST 0.005% OPHTH DROPS 2.5 ML BTL BOTH EYES SCH ×2 (07:49→20:56)
--- NOTE | 2016-11-15 07:52 | P.PN ---
Progress Note - Text This is Dr. Esparza dictating a progress note for October. This patient is was admitted with atypical chest pain with pleuritic qualities. Chest x-ray and computed tomography scan was size to of CHF plus pulmonary infiltrates and fibrosis. Patient subsequently developed presence of JVD and also wheezing. Patient was treated with IV Lasix. Patient continued to have cough and wheezing. Seen by patternator and felt that patient may have ALLERGIC pneumonitis or rheumatoid lung. Patient is being started on steroids. Her lungs sound better today. She seemed to be less short of breath. She is being transferred to medical floor. She is a no CODE STATUS. Physical examination reveals a elderly female who is alert, doesn't appear to be in acute distress. Blood pressures running about 100 systolic. Lungs show scattered wheezing. Heart S1 and S2 normal. JVD seemed to be less prominent. No significant edema. Lab values showed white count of 9000, hemoglobin is normal. Sodium is 136. BUN/creatinine are within normal limits. Final impression: #1. Diastolic congestive heart failure, acute #2. Pulmonary fibrosis/pneumonia. #3. Atypical chest eloisa Plan: Continue current medical therapy. Transferred to medical floor. Prognosis is guarded
[2016-11-15] MEDS: BUDESONIDE 0.5 MG/2 ML NEBU INHALATION SCH ×2 (08:13→20:21)
[2016-11-15] MEDS: ALBUTEROL NEBULIZED 2.5 MG/3 ML INHALATION SCH ×4 (08:13→20:20)
[2016-11-15 09:24] LABS: ALT 36 U/L (9-52); AST 41 U/L (14-36); Alkaline Phosphatase 83 U/L (38-126); Anion Gap 11 mmol/L; Blood Urea Nitrogen 16 mg/dL (7-17); Carbon Dioxide 21 mmol/L (22-30); Chloride 107 mmol/L (98-107); Glucose 121 mg/dL (74-99); Non-African American GFR(MDRD) >60 (>60 ml/min/1.73 sqM); Sodium 139 mmol/L (137-145); Total Bilirubin 0.9 mg/dL (0.2-1.3); Total Protein 6.8 g/dL (6.3-8.2)
[2016-11-15 09:28] LABS: Potassium 4.2 mmol/L (3.5-5.1)
[2016-11-15 09:43] LABS: Basophils % (A) 0 %; CH 30.1; CHCM 33.3; Eosinophils % (A) 0 %; HCT 39.3 % (34.0-46.0); HDW 2.76; HGB 13.2 gm/dL (11.4-16.0); Luc # (Auto) 0.06; Luc % (Auto) 1; Lymphocytes # (A) 1.3 k/uL (1.0-4.8); Lymphocytes % (A) 13 %; MCH 30.5 pg (25.0-35.0); MCHC 33.6 g/dL (31.0-37.0); MCV 90.8 fL (80.0-100.0); Mean Platelet Volume 7.8; Monocytes # (A) 0.3 k/uL (0-1.0); Monocytes % (A) 3 %; Neutrophils # (A) 8.2 k/uL (1.3-7.7); Neutrophils % (A) 83 %; RBC 4.33 m/uL (3.80-5.40); RDW 13.7 % (11.5-15.5); WBC 9.8 k/uL (3.8-10.6)
--- NOTE | 2016-11-15 10:54 | CDI ---
In responding to this query, please exercise your independent professional judgment. The [facility] Coding Staff and Clinical Documentation Specialists appreciate your assistance in clarifying documentation, maintaining compliance with coding guidelines, accurately documenting patients condition and capturing severity of illness. The fact that a question is asked does not imply that any particular answer is desired or expected. Communication forms are a method of clarifying documentation and are not made part of the Legal Health Record. Thank you in advance for your clarification. Last Revision, June 2015 Monica Ny [address] [place] [address] Documentation Clarification Form Date: 11/15/2016 10:38:00 AM From: Precious Segal RN, CCDS Admit Date: 11/14/2016 8:14:00 AM Patient Name: Desire Green Visit Number: [id number] Dr. Prince / Madhavi Hutchison CNP Asthma is documented in the Pulmonary Consult and Attending Progress Notes and requires further specificity. History: CVA/Vertigo, Hyperlipidemia, Depression Clinical Indicators: 11/14 Pulmonary Consult: "We will also obtain labs for hypersensitive pneumonitis and [place] ALLERGY panel to look for ALLERGIC asthma." 11/14 Attending Progress Note: "Congestive heart failure. There is some asthma component." Chest CTA: Suspect CHF exacerbation w cardiomegly with mild alveolar and interstitial edema, mild emphysematous change and scattered fibrosis with atelectasis/consolidation bilaterally." Vital Signs: Temp 97.8, hr 97, RR 17, B/P 121/60, spo2 93% ra Other Clinical Indicators: Treatment: Medication: Xanax .25 mg PO BID, Pulmicort .5 mg INH QD, Solumedrol 40 mg IVP Q 8 hrs Consults: Pulmonary, Cardiology In your professional opinion, can you please further specify the following, if known? With Acute Exacerbation Acute lower respiratory infection COPD (specify with or without exacerbation) Chronic obstructive bronchitis Other, please specify Unable to determine Severity Mild intermittent Mild persistent Moderate persistent Severe persistent Other, please specify ____ Unable to determine Form or Type Cough variant Childhood Exercise induced bronchospasm Extrinsic allergic Idiosyncratic Intrinsic nonallergic Late-onset Mixed Other, please specify Unable to determine Please document in your progress notes and discharge summary in order to capture severity of illness and risk of mortality. Include clinical findings that support your diagnosis. FYI: Press F11 to launch patient chart. MTDD
[2016-11-15 12:13] LABS: Glucose,Whole Blood 154 mg/dL (75-99)
--- NOTE | 2016-11-15 12:50 | PN ---
She had a bit of sundowners last night and she is very confused during the night and actually can be somewhat combative and very anxious. She did comply very well with the use of Xanax and has ( ) quite well. Pulmonary investigation is under way for hypersensitivity pneumonitis versus pulmonary fibrosis. A rheumatoid factor was done, which is 13, normal is 12. It is to be noted her finger deviation is not rheumatoid. Finger deviation is distal to the MP joints and that is indicative of osteoarthritis. At this point, her labs show a WBC that was normal. Her chem-17 was normal last p.m., except for a low protein and her sugars are on insulin to scale due to her steroids. REVIEW OF SYSTEMS: She is alert, well oriented to person, place and thing at this time, but she cannot remember where she is from. She does come from a home. CARDIOPULMONARY: There is no shortness of breath. No chest pain or orthopnea. No paroxysmal nocturnal dyspnea. GI: No hematemesis, melena or hematochezia. : Urination has been normal. NEUROMUSCULAR: She has some changes of her skin and multiple bruises, which is indicative of her age. Some stasis dermatitis in her lower legs. PSYCHIATRIC: She is not depressed. She is not anxious, but she does have sundowners and becomes combative at bedtime. VITAL SIGNS: She is alert, well oriented to person, place and thing this morning. She absolutely has no memory of where she lives, but she is very, very pleasant and does recognize me when I walk in the room. Her blood pressure is 130/70. Heart rate is in the 90s. Respiratory rate is 18. EYES: Pupils are equal, round and reactive to light and accommodation. ENT shows tympanic membranes and pharynx to be negative. Neck is supple with midline trachea. CHEST: Essentially clear to auscultation, but decreased breath sounds throughout. HEART: Sinus rhythm. ABDOMEN: Soft, nontender with no organomegaly. Medications have been reviewed as the followin . Albuterol updraft 4 times a day. 2. Xanax 0.5 four times a day p.r.n. anxiety. 3. Aspirin 325 daily. 4. Lipitor 10 daily. 5. Pulmicort updrafts 0.5 twice a day. 6. Ibuprofen 400 mg p.r.n. for pain. 7. Insulin to scale. 8. She takes latanoprost ophthalmic 1 drop each eye. 9. Levofloxacin 750 every 48 hours. 10. Antivert 25 mg b.i.d. 11. ( ) 50 mg daily. 12. Zoloft 100 daily. 13. Tramadol 50 mg q.i.d. p.r.n. pain. No new labs except for her sugars and her additional blood sugar between 170 and 160, being controlled by insulin to scale because of steroids. ASSESSMENT: 1. Diastolic heart failure, acute. 2. Progressive dementia. 3. 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 4. 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 5. History of vertigo. She does have carotid ( ) that is to be handled on an outpatient basis. 6. Vertigo related with some chronic labyrinthitis. 7. 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 8. History of glaucoma. PLAN: I talked with her nurse and I see today we are going to get her traveling secretary involved. Will continue with the steroids with the possibility of changing her over to orals with the possibility of discharge in the a.m. MTDD
--- NOTE | 2016-11-15 14:27 | P.PN ---
Subjective 11/14/16- This is an 86-year-old female patient being seen and examined today. This patient came into the emergency room with nonspecific chest pain and generalized malaise. Patient states she also has been short of breath the last 2 or 3 days it has significantly gotten worse. Patient was noted to have some chest discomfort with deep breathing. Laboratory and radiologic reports been reviewed. She was noted to have an elevated BNP level. Patient was given IV Lasix. Upon examination the patient's resting up in bed on on room air patient states she gets short of breath with exertion. She is currently afebrile. The patient also had a positive urine culture and her primary care physician's office recently, subsequently the patient was started on Levaquin. Chest x-ray has been reviewed and shows stable CHF, pulmonary venous congestion with scattered infiltrates, cardiomegaly and small effusions. Patient also noted to have some pulmonary fibrosis. 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 11/15/16-patient has been seen in evaluated and examined today on rounds. Hypertension is noted to be sitting up in bed on room air she does display intermittent confusion however has been easily redirected. Patient feels her breathing is slightly better today, she continues with shortness of breath with exertion however it is less severe. Labs were ordered yesterday to work the patient up for connective tissue disorder and/or an ALLERGIC component of asthma and some of the labs are back and reviewed the others are still pending. Patient probably has a component of asthma however the type is unknown at this time and is currently being worked up she will require an outpatient PFT. Patient is also being worked up for connective tissue disease. She does have a component of pulmonary fibrosis. She has been afebrile no overnight events, no further complaints at this time. Objective - Vital Signs Vital signs: Vital Signs Temp 97.2 F L 11/15/16 07:00 Pulse 88 11/15/16 11:27 Resp 16 11/15/16 07:00 BP 125/73 11/15/16 07:00 Pulse Ox 96 11/15/16 08:13 Intake & Output 11/14/16 11/15/16 11/15/16 18:59 06:59 18:59 Intake Total 340 Balance 340 Weight 61.8 kg Intake: Oral 340 Other: Voiding Method Toilet Toilet Diaper # Voids 1 1 - Exam GENERAL EXAM: Alert, intermittent confusion related to dementia, comfortable in no apparent distress. HEAD: Normocephalic. EYES: Normal reaction of pupils, equal size. NOSE: Clear with pink turbinates. THROAT: No erythema or exudates. NECK: No masses, no JVD. CHEST: No chest wall deformity. LUNGS: Lungs are noted to be diminished bilaterally, a pleural rub is noted in the left lower lobe, bilateral dry crackles present, bilateral wheezes noted. CVS: S1 and S2 normal with no audible mumurs, regular rhythm. ABDOMEN: No hepatosplenomegaly, normal bowel sounds, no guarding or rigidity. EXTREMITIES: Rheumatoid deviation noted to hands. No edema noted, pedal pulses palpable. SKIN: No rashes CENTRAL NERVOUS SYSTEM: No focal deficits, tone is normal in all 4 extremities. - Labs CBC & Chem 7: 11/15/16 08:10 11/15/16 08:10 Labs: Abnormal Lab Results - Last 24 Hours (Table) 11/14/16 11/14/16 11/14/16 Range/Units 07:02 07:02 21:19 Neutrophils # (1.3-7.7) k/uL ESR 35 H (0-20) mm/hr Carbon Dioxide (22-30) mmol/L Glucose (74-99) mg/dL POC Glucose (mg/dL) 172 H (75-99) mg/dL AST (14-36) U/L Rheumatoid Factor 13 H (<12) IU/mL 11/14/16 11/15/16 11/15/16 Range/Units 21:38 07:09 08:10 Neutrophils # 8.2 H (1.3-7.7) k/uL ESR (0-20) mm/hr Carbon Dioxide (22-30) mmol/L Glucose (74-99) mg/dL POC Glucose (mg/dL) 157 H 160 H (75-99) mg/dL AST (14-36) U/L Rheumatoid Factor (<12) IU/mL 11/15/16 11/15/16 Range/Units 08:10 12:06 Neutrophils # (1.3-7.7) k/uL ESR (0-20) mm/hr Carbon Dioxide 21 L (22-30) mmol/L Glucose 121 H (74-99) mg/dL POC Glucose (mg/dL) 154 H (75-99) mg/dL AST 41 H (14-36) U/L Rheumatoid Factor (<12) IU/mL Assessment and Plan Plan: Assessment Acute Hypoxic respiratory failure 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 Plan Medications have been reviewed and will be continued as ordered. We will add IV steroids to her current medications today with the intent to switch to oral and the next 24-48 hours. Pending labs for probable rheumatoid arthritis or connective tissue disorder. Pending labs for hypersensitive pneumonitis and [place] ALLERGY panel to look for ALLERGIC asthma. Continue with pulmonary hygiene, coughing and deep breathing exercises, and supportive care. Supplemental oxygen to maintain oxygen saturations of 92% or better. Continue nebulizer treatments. GI and DVT prophylaxis. We will continue to monitor labs/ results and adjust treatment as necessary. Further recommendations pending. I performed an examination of the patient and discussed their management with the nurse practitioner. I have reviewed the nurse practitioner's note and agree with the documented findings and plan of care.
[2016-11-15 17:00] LABS: Glucose,Whole Blood 139 mg/dL (75-99)
[2016-11-15] MEDS: ATORVASTATIN 10 MG TAB PO SCH (20:56)
[2016-11-15 21:06] LABS: Glucose,Whole Blood 160 mg/dL (75-99)
[2016-11-15] MEDS: traMADol 50 MG TAB PO PRN (23:29)
[2016-11-16 07:06] LABS: Glucose,Whole Blood 132 mg/dL (75-99)
[2016-11-16 07:21] VITALS: BP 134/60; RESP 18; TEMP 97.9
[2016-11-16] MEDS: ALBUTEROL NEBULIZED 2.5 MG/3 ML INHALATION SCH (07:21)
[2016-11-16] MEDS: BUDESONIDE 0.5 MG/2 ML NEBU INHALATION SCH (07:21)
[2016-11-16 07:25] VITALS: PULSE 88
[2016-11-16] MEDS: LEVOFLOXACIN 750MG-D5W PMX 750 MG in DEXTROSE/WATER 1 150ML.BAG IVPB SCH (07:35)
[2016-11-16] MEDS: ASPIRIN 325 MG TAB PO SCH (07:38)
[2016-11-16] MEDS: MECLIZINE 25 MG TAB PO SCH (07:38)
[2016-11-16] MEDS: ALPRAZolam 0.25 MG TAB PO SCH (07:38)
[2016-11-16] MEDS: SERTRALINE 100 MG TAB PO SCH (07:38)
[2016-11-16] MEDS: SODIUM CHLORIDE TAB 1 GM TAB PO SCH (07:38)
[2016-11-16] MEDS: LATANOPROST 0.005% OPHTH DROPS 2.5 ML BTL BOTH EYES SCH (07:39)
[2016-11-16] MEDS: INSULIN LISPRO (humaLOG) 300 UNIT/3 ML VIAL SQ SCH (07:39)
[2016-11-16] MEDS: methylPREDNISolone SOD SUCCI 40 MG/ML 1 ML VIAL IV SCH (07:39)
[2016-11-16] MEDS ORDERED: LEVOFLOXACIN 750 MG TAB PO SCH (09:00)
--- NOTE | 2016-11-16 13:05 | P.PN ---
Subjective Principal diagnosis: 11/14/16- This is an 86-year-old female patient being seen and examined today. This patient came into the emergency room with nonspecific chest pain and generalized malaise. Patient states she also has been short of breath the last 2 or 3 days it has significantly gotten worse. Patient was noted to have some chest discomfort with deep breathing. Laboratory and radiologic reports been reviewed. She was noted to have an elevated BNP level. Patient was given IV Lasix. Upon examination the patient's resting up in bed on on room air patient states she gets short of breath with exertion. She is currently afebrile. The patient also had a positive urine culture and her primary care physician's office recently, subsequently the patient was started on Levaquin. Chest x-ray has been reviewed and shows stable CHF, pulmonary venous congestion with scattered infiltrates, cardiomegaly and small effusions. Patient also noted to have some pulmonary fibrosis. 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 11/15/16-patient has been seen in evaluated and examined today on rounds. Hypertension is noted to be sitting up in bed on room air she does display intermittent confusion however has been easily redirected. Patient feels her breathing is slightly better today, she continues with shortness of breath with exertion however it is less severe. Labs were ordered yesterday to work the patient up for connective tissue disorder and/or an ALLERGIC component of asthma and some of the labs are back and reviewed the others are still pending. Patient probably has a component of asthma however the type is unknown at this time and is currently being worked up she will require an outpatient PFT. Patient is also being worked up for connective tissue disease. She does have a component of pulmonary fibrosis. She has been afebrile no overnight events, no further complaints at this time. 11/16/16, patient seen and evaluated exam at fourth floor intermittent cough congestion or shortness of breath is present but severity is improved she's been using breathing treatment and tolerating IV steroids fairly well quality of sleep has improved aches and pains present extremity, workup for connective tissue disease has been sent him a workup for ALLERGIC asthma and hypersensitivity pneumonitis has been sent as well Objective - Vital Signs Vital signs: Vital Signs Temp 97.9 F 11/16/16 07:00 Pulse 88 11/16/16 07:35 Resp 18 11/16/16 07:00 BP 134/60 11/16/16 07:00 Pulse Ox 92 L 11/16/16 07:00 Intake & Output 11/15/16 11/16/16 11/16/16 18:59 06:59 18:59 Intake Total 700 Balance 700 Intake: Oral 700 Other: Voiding Method Toilet # Voids 2 1 # Bowel Movements 1 GENERAL EXAM: Alert, intermittent confusion related to dementia, comfortable in no apparent distress. HEAD: Normocephalic. EYES: Normal reaction of pupils, equal size. NOSE: Clear with pink turbinates. THROAT: No erythema or exudates. NECK: No masses, no JVD. CHEST: No chest wall deformity. LUNGS: Lungs are noted to be diminished bilaterally, a pleural rub was noted in the left lower lobeappears to have diminished, bilateral dry valcro crackles present, bilateral wheezes noted, also appeared to have improved CVS: S1 and S2 normal with no audible mumurs, regular rhythm. ABDOMEN: No hepatosplenomegaly, normal bowel sounds, no guarding or rigidity. EXTREMITIES: Rheumatoid related ulnar deviation noted to hands. No edema noted , pedal pulses palpable. SKIN: No rashes CENTRAL NERVOUS SYSTEM: No focal deficits, tone is normal in all 4 extremities. - Labs CBC & Chem 7: 11/15/16 08:10 11/15/16 08:10 Labs: Abnormal Lab Results - Last 24 Hours (Table) 11/15/16 11/15/16 11/16/16 Range/Units 16:59 20:42 07:05 POC Glucose (mg/dL) 139 H 160 H 132 H (75-99) mg/dL Assessment and Plan Plan: Acute Hypoxic respiratory failure 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 Plan Medications have been reviewed and will be continued as ordered. We will add IV steroids to her current medications today with the intent to switch to oral and the next 24-48 hours. Pending labs for probable rheumatoid arthritis or connective tissue disorder. Pending labs for hypersensitive pneumonitis and [place] ALLERGY panel to look for ALLERGIC asthma. Continue with pulmonary hygiene, coughing and deep breathing exercises, and supportive care. Supplemental oxygen to maintain oxygen saturations of 92% or better. Continue nebulizer treatments. GI and DVT prophylaxis. We will continue to monitor labs/ results and adjust treatment as necessary. Further recommendations pending. Time with Patient: Greater than 30
[2016-11-19 12:13] LABS: Alternaria alternata IgE <0.35 kU/L (<0.35); Asperg. fumagatus IgE <0.35 kU/L (<0.35); Asperg. fumagatus IgE Class CLASS 0; Birch(Com.Silvr) IgE Class CLASS 0; Cat Epith & Dander IgE <0.35 kU/L (<0.35); Cat Epith & Dander IgE Class CLASS 0; Clad herbarum IgE <0.35 kU/L (<0.35); Clad herbarum IgE Class CLASS 0; Common Ragweed IgE Class CLASS II; Dermato. Pteronyssinus Class CLASS 0; Dermato. Pteronyssinus IgE <0.35 kU/L (<0.35); Dermato. farinae IgE <0.35 kU/L (<0.35); Dermato. farinae IgE Class CLASS 0; IgE (Allergen) 86.7 IU/mL (<114.0); Maple (Box Elder) IgE <0.35 kU/L (<0.35); Maple (Box Elder) IgE Class CLASS 0; Mountain Cedar IgE <0.35 kU/L (<0.35); Mountain Cedar IgE Class CLASS 0; Mouse Urine IgE Class CLASS 0; Mouse Urine Proteins,IgE <0.35 kU/L (<0.35); Mulberry IgE Class CLASS 0; Nettle IgE <0.35 kU/L (<0.35); Nettle IgE Class CLASS 0; Oak IgE <0.35 kU/L (<0.35); Penicillium notatum IgE Class CLASS 0; Rough Marshelder IgE 0.58 kU/L (<0.35); Rough Marshelder IgE Class CLASS I; Timothy Grass IgE <0.35 kU/L (<0.35); Timothy Grass IgE Class CLASS 0; White Ash IgE Class CLASS 0
--- NOTE | 2016-11-19 13:21 | DS ---
She was admitted here on 11/11. She was discharged 11/16. Discharge diagnoses: 1. Acute chest pain. 2. Some pulmonary fibrosis. 3. Progressive dementia with sundowners. 4. Some anxiety neurosis which has been stable. 5. Severe vertigo. 6. Urinary tract infection. 7. Depression which has been stable and some chronic back pain. 8. Hyperlipidemia. This is an 86 -year-old white female came in shortness of breath and some nonspecific back pain and anterior chest pain. Her anterior chest pain was found to be secondary from palpation chest wall pain. She had an echocardiogram when she was here which was within normal limits. She had negative troponins and her CT scan when we looked for pulmonary showed some pulmonary fibrosis. She had some minimal amount of wheezing while she was here. She was started on Prednisone and BuSpar and updrafts and then converted to an inhaler. Over the last 24 hours, she has improved tremendously. She feels better. She is breathing much more comfortably. At this time, she is being discharged home. Her discharge plan: MEDICATIONS: 1. Aspirin 25. 2. Lipitor 10. 3. Levaquin 75 every four hours and she was given 3 tabs. 4. Prednisone 10 twice a day. 5. Zoloft 100 mg daily. 6. Antivert 25 twice a day. 7. She takes Lumigan 0.1 eye drops in both eyes twice a day. 8. Travatan-Z 0.004% one drop into both eyes at bedtime. 9. Cranberry pills 400 daily. 10. B12 1000 daily. 11. She will stay on her Co-Q10 daily. 12. Antivert 25 twice a day. 13. Albuterol inhaler two puffs to use four times a day. Her urinary tract infection also seems to be the problem from the antibiotic accordingly. She will follow-up with me in a week. She is going back to her home with 24 hour care. Prognosis is guarded. Follow-up with pulmonology as needed SAM
[2016-11-20 21:54] LABS: Alternaria Alternata IgG < 2.0 mcg/mL (< 13.6); Cladosporium herbarium IgG 9.7 mcg/mL (< 14.7); Phoma ssp. IgG 2.6 mcg/mL (< 6.6); Saccaharomospora viridis Not detected (Not detected); Saccaharopoly. rectivirgula Not detected (Not detected)
== END 2016-11-16 12:35 | disposition home or self-care (01) | DRG 291 ==
LOC: EC 12:01 → 3OBS 15:39 → OBSVTOIN 11-14 08:14 → 4MS4W 11-14 21:35
PROVIDERS: ADMIT Family Medicine; ATTEND Family Medicine
DX: I11.0 Hypertensive heart disease with heart failure (principal); J18.9 Pneumonia, unspecified organism; J84.10 Pulmonary fibrosis, unspecified; J44.0 Chronic obstructive pulmonary disease with (acute) lower respiratory infection; N39.0 Urinary tract infection, site not specified; F03.90 Unspecified dementia, unspecified severity, without behavioral disturbance, psychotic disturbance, mood disturbance, and anxiety; M06.9 Rheumatoid arthritis, unspecified; I65.29 Occlusion and stenosis of unspecified carotid artery; I50.33 Acute on chronic diastolic (congestive) heart failure; M41.9 Scoliosis, unspecified; I95.1 Orthostatic hypotension; E78.5 Hyperlipidemia, unspecified; K21.9 Gastro-esophageal reflux disease without esophagitis; H40.9 Unspecified glaucoma; M19.91 Primary osteoarthritis, unspecified site; F41.1 Generalized anxiety disorder; H83.09 Labyrinthitis, unspecified ear; G89.29 Other chronic pain; M54.9 Dorsalgia, unspecified; J30.1 Allergic rhinitis due to pollen; I83.90 Asymptomatic varicose veins of unspecified lower extremity; F32.9 Major depressive disorder, single episode, unspecified; Z79.82 Long term (current) use of aspirin; Z79.899 Other long term (current) drug therapy; Z86.19 Personal history of other infectious and parasitic diseases; Z85.828 Personal history of other malignant neoplasm of skin; Z98.49 Cataract extraction status, unspecified eye; Z96.643 Presence of artificial hip joint, bilateral; Z86.73 Personal history of transient ischemic attack (TIA), and cerebral infarction without residual deficits
CPT/HCPCS: 36415; 71020; 71275; 80053; 80061; 82550; 82553; 82785; 83036; 83605; 83735; 83880; 84484; 85025; 85379; 85610; 85652; 85730; 86001; 86003; 86038; 86431; 86606; 86609; 93005; 93306; 94640; 94760; 96361; 96365; 96366; 96375; 99285

== ENCOUNTER → 2017-05-17 | Outpatient (CLI) | payer MEDICARE ==
--- NOTE | 2017-05-17 11:18 | CT ---
EXAMINATION TYPE: CT chest wo con DATE OF EXAM: 05/17/2017 COMPARISON: Previous study dated 04/07/2017 HISTORY: Patient poor historian. Shortness of breath. CT DLP: 151.6 mGycm. Automated Exposure Control for Dose Reduction was Utilized. TECHNIQUE: CT scan of the thorax is performed without IV contrast. FINDINGS: The patient's effusions have resolved. Airspace disease in the right lower lobe has largely resolved. Some residual inflammatory change or scarring persists. There is persistent interstitial c hange throughout the lungs. There is no significant axillary, internal mammary, mediastinal or hilar adenopathy. There is no pericardial fluid. The heart is mildly enlarged. There is coronary artery perla cification. There is echogenic material within the stomach. There is a moderate hiatal hernia. Visualized portion s of the upper abdomen are otherwise unremarkable. There is a dextroscoliosis. There is degenerative disc disease within the IMPRESSION: 1. RESOLUTION OF THE PATIENT'S BILATERAL PLEURAL EFFUSIONS. 2. IMPROVED AERATION OF THE RIGHT LUNG BASE. 3. CHRONIC INTERSTITIAL CHANGE. 4. MILD CARDIOMEGALY. 5. MILD DEGENERATIVE CHANGE WITHIN THE SPINE.
== END | disposition home or self-care (01) ==
LOC: RADCTMAIN 10:45
PROVIDERS: ATTEND Internal Medicine
DX: J84.9 Interstitial pulmonary disease, unspecified (principal); I51.7 Cardiomegaly; R91.8 Other nonspecific abnormal finding of lung field
CPT/HCPCS: 71250

== ENCOUNTER 2017-12-31 17:31 | Observation (INO) | payer MEDICARE ==
[2017-12-31] MEDS ORDERED: HYDROcodone/APAP 10-325MG 1 EACH TAB PO ONE (18:11)
[2017-12-31] MEDS ORDERED: MORPHINE SULFATE 4 MG/ML SYRINGE IM STA (18:12)
--- NOTE | 2017-12-31 18:15 | ED ---
Fall HPI - General Chief Complaint: Fall Stated Complaint: FALL, LEFT HIP AND KNEE INJURY, ELBOW LAC Time Seen by Provider: 12/31/17 17:53 Source: family, RN notes reviewed, old records reviewed Mode of arrival: wheelchair - History of Present Illness Initial Comments: 82-year-old female with history of dementia presents emergency Department with her daughter and granddaughter. Patient was ambulating without a walker today at her assisted living facility. She reports that she fell onto her left knee. Patient complains of left knee and left hip pain.Patient also has a skin abrasion over her left elbow and contusion. She did not hit her head. The incident happened at 2:00 this evening. Patient has had pain with ambulation. No previous orthopedic surgeries. - Related Data Home Medications Medication Instructions Recorded Confirmed Bimatoprost [[place]umigan .01% Ophth 1 drop BOTH EYES HS@199911/11/16 12/31/17 Soln] Sertraline HCl [Zoloft] 100 mg PO DAILY@169911/11/16 12/31/17 ALPRAZolam [Xanax] 0.25 mg PO Q6H PRN 04/03/17 12/31/17 Acetaminophen [Tylenol Extra 500 mg PO Q4HR PRN 04/03/17 12/31/17 Strength] Albuterol Inhaler [Ventolin Hfa 2 puff INHALATION RT-QID PRN 04/03/17 12/31/17 Inhaler] Albuterol Nebulized [Ventolin 2.5 mg INHALATION RT-QID PRN 04/03/17 12/31/17 Nebulized] Clotrimazole/Betameth Cream 1 applic TOPICAL BID PRN 04/03/17 12/31/17 [Lotrisone] Doxylamine Succinate [Unisom] 50 mg PO HS@199904/03/17 12/31/17 Simvastatin [Zocor] 20 mg PO DAILY@169904/03/17 12/31/17 predniSONE 5 mg PO DAILY@79904/03/17 12/31/17 Aspirin 325 mg PO DAILY@79912/31/17 12/31/17 Cranberry Fruit Concentrate 450 mg PO BID@12/31/17 12/31/17 [Cranberry] Furosemide [Lasix] 40 mg PO DAILY@79912/31/17 12/31/17 Metoprolol Tartrate [Lopressor] 12.5 mg PO TID@08,14,20 12/31/17 12/31/17 Montelukast [Singulair] 10 mg PO DAILY@0800 12/31/17 12/31/17 Vit C/E/Zn/Coppr/Lutein/Zeaxan 1 cap PO BID@08,17 12/31/17 12/31/17 [Preservision Areds 2 Softgel] Previous Rx's Medication Instructions Recorded HYDROcodone/APAP 5-325MG [[place] 1 - 2 tab PO Q6HR PRN #12 tab 12/31/17 5-325] Allergies Allergy/AdvReac Type Severity Reaction Status Date / Time No Known Allergies Allergy Verified 12/31/17 18:00 Review of Systems ROS Statement: Those systems with pertinent positive or pertinent negative responses have been documented in the HPI. ROS Other: All systems not noted in ROS Statement are negative. 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 per pt's daughter-pt has a sore in outh from her partial plate.dementia w/ "sundowners" History of Any Multi-Drug Resistant Organisms: None Reported Past Surgical History: Orthopedic Surgery, Tonsillectomy Additional Past Surgical History / Comment(s): X2 RT hip replacement, cataract Past Anesthesia/Blood Transfusion Reactions: No Reported Reaction Past Psychological History: Anxiety, Depression Smoking Status: Never smoker - Past Family History Sister(s) Family Medical History: Cancer Additional Family Medical History / Comment(s): BREAST CANCER Father Family Medical History: No Reported History Additional Family Medical History / Comment(s): FROM OLD AGE General Exam - General Exam Comments Initial Comments: this is an 82-year-old female presents emergency Department today. Patient is demented. In good spirits. Limitations: no limitations General appearance: alert, in no apparent distress Head exam: Present: atraumatic, normocephalic, normal inspection Eye exam: Present: normal appearance, PERRL, EOMI. Absent: scleral icterus, conjunctival injection, periorbital swelling ENT exam: Present: normal exam, mucous membranes moist Neck exam: Present: normal inspection. Absent: tenderness, meningismus, lymphadenopathy Respiratory exam: Present: normal lung sounds bilaterally. Absent: respiratory distress, wheezes, rales, rhonchi, stridor Cardiovascular Exam: Present: regular rate, normal rhythm, normal heart sounds. Absent: systolic murmur, diastolic murmur, rubs, gallop, clicks GI/Abdominal exam: Present: soft, normal bowel sounds. Absent: distended, tenderness, guarding, rebound, rigid Extremities exam: Present: normal inspection, full ROM, normal capillary refill. Absent: tenderness, pedal edema, joint swelling, calf tenderness Left Hip exam: Present: normal inspection, full ROM Upper Leg exam: Present: normal inspection, full ROM Knee exam: Present: swelling, ecchymosis, deformity (significant swelling or ecchymosis evidence of effusion over the anterior aspect of the knee. Pain with range of motion.). Absent: normal inspection, full ROM Lower Leg exam: Present: normal inspection, full ROM Ankle exam: Present: normal inspection, full ROM Neurovascular tendon exam: Present: no vascular compromise Gait: observed and normal Back exam: Present: normal inspection Neurological exam: Present: alert, oriented X3, CN II-XII intact Psychiatric exam: Present: normal affect, normal mood Skin exam: Present: warm, dry, intact, normal color. Absent: rash Course Vital Signs 12/31/17 17:44 Temperature 98.9 F Pulse Rate 98 Respiratory 18 Rate Blood Pressure 137/71 O2 Sat by Pulse 96 Oximetry Procedures - Orthopedic Splinting/Casting Injury #1 Side: left Lower Extremity Injury Location: knee Lower Extremity Immobilizer: knee immobilizer Medical Decision Making - Medical Decision Making Patient is an 87-year-old female presents emergency department today with chief complaint of left knee pain. Patient fell and complains of hip pain knee pain and left elbow pain. She has a small abrasion over the left elbow. This time she has significant contusion and ecchymosis over the left knee. Patient x-ray of the hip was negative for any acute process. Her knee exercises evidence of soft tissue swelling. There is evidence of soft tissue swelling and laceration deformity over the left elbow. There is no significant changes at this time. Patient at this time is wound was cleaned and irrigated. We did put her in a knee immobilizer. Discussed follow-up with primary care physician. All questions answered return parameters were discussed. - Radiology Data Radiology results: report reviewed X-ray of the knee shows osteoporosis prepatellar bursitis. No acute fracture. No acute abdomen on a of the pelvis and left hip. Laceration deformity. No evidence of fracture over the left elbow. Disposition Clinical Impression: Knee effusion, left, Elbow abrasion, Knee sprain Disposition: ADMITTED IP TO THIS HOSP Condition: Stable Instructions: Fall Prevention for Older Adults (ED), Knee Sprain (ED) Additional Instructions: Patient advised to follow-up with weight reduction specialist tomorrow. Return any immobilizer. Return to the emergency department if any alarming signs or symptoms occur. Prescriptions: HYDROcodone/APAP 5-325MG [[place] 5-325] 1 - 2 tab PO Q6HR PRN #12 tab PRN Reason: Pain Is patient prescribed a controlled substance at d/c from ED?: No Referrals: Any Mckinley MD [Primary Care Provider] - 1-2 days Time of Disposition: 20:14
[2017-12-31] MEDS ORDERED: TOPICAL SKIN ADHESIVE 1 EACH AMP TOPICAL ONE (19:16)
--- NOTE | 2017-12-31 19:47 | XR ---
EXAMINATION TYPE: XR knee complete LT DATE OF EXAM: 12/31/2017 COMPARISON: NONE HISTORY: Knee pain TECHNIQUE: 3 views FINDINGS: There is narrowing of the medial joint space. There is soft tissue swelling anterior to the patella. I see no fracture nor dislocation. IMPRESSION: Osteoarthritis. Prepatella bursitis. No fracture.
--- NOTE | 2017-12-31 19:48 | XR ---
EXAMINATION TYPE: XR Hip LT and AP Pelvis DATE OF EXAM: 12/31/2017 COMPARISON: NONE HISTORY: Left hip pain TECHNIQUE: A single AP view of the pelvis is obtained. Two views of the left hip are obtained. FINDINGS: Pelvic ring appears intact. There is right hip prosthesis. Components appear in anatomic po sition. Sacroiliac joints appear intact. Proximal left femur and hip joint appear intact. IMPRESSION: No acute abnormality of the pelvis and left hip.
--- NOTE | 2017-12-31 19:49 | XR ---
EXAMINATION TYPE: XR elbow complete LT DATE OF EXAM: 12/31/2017 COMPARISON: NONE HISTORY: Fall. Elbow laceration. TECHNIQUE: 3 views FINDINGS: I see no fracture nor dislocation. Joint spaces are normal. There is some thinning of the s oft tissues posteriorly on the lateral view consistent with laceration. IMPRESSION: Laceration deformity. No fracture.
--- NOTE | 2017-12-31 20:39 | ED ---
Medical Decision Making - Lab Data Result diagrams: 12/31/17 21:03 12/31/17 21:03 <KittyRaphael noriega - Last Filed: 12/31/17 22:41> - Lab Data Result diagrams: 12/31/17 21:03 12/31/17 21:03 - Radiology Data Radiology results: report reviewed <DavidMaddy - Last Filed: 12/31/17 23:26> - Medical Decision Making I saw this patient in conjunction with the physician certified surgical tech/first assistant. I performed independent history and physical exam. Agree with case management. (Raphael Barroso) Attempting to discharge the Patient and family's concern that she is unable to bear weight on her leg due to the effusion. We did attempt to ambulate the Patient and she is having severe pain with ambulation. She has evidence of a superficial contusion. She could possibly have internal ligament damage. They did attempt to call patient's sitting care facility. With patient the unable to bear weight they have no staff is able to help her ambulate to and from the bathroom. Patient's family is requesting the Patient could be admitted for observation for the evening until further evaluated by ortho. He did check a CT of the knee check for the possibility of any tibial plateau fracture with some diagnosed on x-ray. This was negative. Assembled check basic lab work, UA. Basic lab work was reviewed and unremarkable. Still pending UA. She appears in no acute distress. Dr. Lowry discussed the case with Dr. Antonio. Odalys the Patient with consult to orthopedics. (Maddy Hernandez) - Lab Data Lab Results 12/31/17 12/31/17 Range/Units 21:03 21:03 WBC 14.0 H (3.8-10.6) k/uL RBC 3.74 L (3.80-5.40) m/uL Hgb 11.2 L (11.4-16.0) gm/dL Hct 34.0 (34.0-46.0) % MCV 91.0 (80.0-100.0) fL MCH 29.9 (25.0-35.0) pg MCHC 32.8 (31.0-37.0) g/dL RDW 14.2 (11.5-15.5) % Plt Count 293 (150-450) k/uL Neutrophils % 79 % Lymphocytes % 15 % Monocytes % 5 % Eosinophils % 1 % Basophils % 0 % Neutrophils # 11.0 H (1.3-7.7) k/uL Lymphocytes # 2.1 (1.0-4.8) k/uL Monocytes # 0.6 (0-1.0) k/uL Eosinophils # 0.1 (0-0.7) k/uL Basophils # 0.0 (0-0.2) k/uL Sodium 138 (137-145) mmol/L Potassium 4.0 (3.5-5.1) mmol/L Chloride 103 (98-107) mmol/L Carbon Dioxide 25 (22-30) mmol/L Anion Gap 10 mmol/L BUN 20 H (7-17) mg/dL Creatinine 0.77 (0.52-1.04) mg/dL Est GFR (CKD-EPI)AfAm 79 (>60 ml/min/1.73 sqM) Est GFR (CKD-EPI)NonAf 69 (>60 ml/min/1.73 sqM) Glucose 111 H (74-99) mg/dL Calcium 8.9 (8.4-10.2) mg/dL Total Bilirubin 0.5 (0.2-1.3) mg/dL AST 26 (14-36) U/L ALT 27 (9-52) U/L Alkaline Phosphatase 80 (38-126) U/L Total Protein 6.5 (6.3-8.2) g/dL Albumin 3.5 (3.5-5.0) g/dL 12/31/17 21:54 EKG performed at 2132 shows normal sinus rhythm. Left ventricular hypertrophy. Nonspecific ST abnormality. Abnormal EKG noted. Ventricular rate of 87. Intervals 122 ms. QRS is 78. QTQTC 3-4/462. (Maddy Hernandez) - Radiology Data Anterior soft tissue swelling. No fracture noted. Mild osteoarthritis the medial joint space. Significant to soft tissue swelling of the knee joint in evangelical patella. No sign of knee joint effusion. (Maddy Hernandez) Disposition <Raphael Barroso - Last Filed: 12/31/17 22:41> Time of Disposition: 22:23 <Maddy Hernandez - Last Filed: 12/31/17 23:26> Clinical Impression: Knee effusion, left, Elbow abrasion, Knee sprain, Dementia, Unable to ambulate Disposition: ADMITTED IP TO THIS HOSP Condition: Stable Instructions: Knee Sprain (ED), Fall Prevention for Older Adults (ED) Additional Instructions: Patient advised to follow-up with wildland fire fighter specialist tomorrow. Return any immobilizer. Return to the emergency department if any alarming signs or symptoms occur. Prescriptions: HYDROcodone/APAP 5-325MG [[place] 5-325] 1 - 2 tab PO Q6HR PRN #12 tab PRN Reason: Pain Referrals: Any Mckinley MD [Primary Care Provider] - 1-2 days
[2017-12-31 21:26] LABS: Albumin 3.5 g/dL (3.5-5.0); Calcium 8.9 mg/dL (8.4-10.2); Total Bilirubin 0.5 mg/dL (0.2-1.3); Total Protein 6.5 g/dL (6.3-8.2)
[2017-12-31 21:50] LABS: Basophils % (A) 0 %; Eosinophils # (A) 0.1 k/uL (0-0.7); Eosinophils % (A) 1 %; HGB 11.2 gm/dL (11.4-16.0); Lymphocytes # (A) 2.1 k/uL (1.0-4.8); Lymphocytes % (A) 15 %; MCH 29.9 pg (25.0-35.0); MCHC 32.8 g/dL (31.0-37.0); Mean Platelet Volume 7.4; Monocytes # (A) 0.6 k/uL (0-1.0); Monocytes % (A) 5 %; Neutrophils % (A) 79 %; Platelet Count 293 k/uL (150-450); RBC 3.74 m/uL (3.80-5.40); RDW 14.2 % (11.5-15.5)
[2017-12-31] MEDS ORDERED: SODIUM CHLORIDE 0.9% 1,000 ML IV ONE (22:18)
--- NOTE | 2017-12-31 22:19 | CT ---
EXAMINATION TYPE: CT knee LT wo con DATE OF EXAM: 12/31/2017 COMPARISON: None HISTORY: Left knee swelling and bruising after fall injury CT DLP: 533.6 mGycm Automated exposure control for dose reduction was used. FINDINGS: Multiple axial sections are obtained from the distal femur to the proximal tibia with no contrast. There is significant anterior soft tissue swelling at the knee joint anterior to the patella and prox imal tibia. There is no sign of knee joint effusion. There is spurring of the medial femoral and tibi al condyles. I see no fracture. The patella appears intact. I see no bony destructive process. There is slight narrowing of the medial joint space. IMPRESSION: ANTERIOR SOFT TISSUE SWELLING. NO FRACTURE SEEN. MILD OSTEOARTHRITIS IN THE MEDIAL JOINT SPACE.
[2017-12-31] MEDS: SODIUM CHLORIDE 0.9% 1,000 ML IV SCH (22:50)
[2017-12-31] MEDS ORDERED: HYDROmorphone 0.5 MG/0.5 ML SYRINGE IVP PRN (23:26)
[2017-12-31] MEDS ORDERED: LORazepam 0.5 MG TAB PO PRN (23:26)
[2017-12-31] MEDS ORDERED: BISACODYL 5 MG TABLET.DR PO PRN (23:26)
[2017-12-31] MEDS ORDERED: NALOXONE 0.4 MG/ML 1 ML VIAL IV PRN (23:26)
[2017-12-31] MEDS ORDERED: ACETAMINOPHEN TAB 325 MG TAB PO PRN (23:26)
[2017-12-31] MEDS ORDERED: ONDANSETRON 4 MG/2 ML VIAL IVP PRN (23:26)
[2017-12-31] MEDS ORDERED: ALBUTEROL INHALER 60 PUFF/8 GM INHALER INHALATION PRN (23:29)
[2017-12-31] MEDS ORDERED: CLOTRIMAZOLE/BETAMETH 1-0.05% CREAM 45 GM TUBE TOPICAL PRN (23:29)
[2017-12-31] MEDS ORDERED: ALBUTEROL NEBULIZED 2.5 MG/3 ML INHALATION PRN (23:29)
[2017-12-31] MEDS ORDERED: ALPRAZolam 0.25 MG TAB PO PRN (23:29)
[2017-12-31] MEDS ORDERED: ACETAMINOPHEN TAB 500 MG TAB PO PRN (23:29)
[2018-01-01] MEDS ORDERED: NON-FORMULARY DRUG (Vit C/E/Zn/Coppr/Lutein/Zeaxan [Preservision Areds 2 Softgel] 1 CAP) PO SCH (08:00)
[2018-01-01] MEDS ORDERED: NON-FORMULARY DRUG (Cranberry Fruit Concentrate [Cranberry] 450 MG) PO SCH (08:00)
[2018-01-01] MEDS: METOPROLOL TARTRATE 12.5 MG TAB PO SCH ×3 (08:26→21:43)
[2018-01-01] MEDS: PANTOPRAZOLE 40 MG/10 ML VIAL IV SCH (08:27)
[2018-01-01] MEDS: FUROSEMIDE 40 MG TAB PO SCH (08:27)
[2018-01-01] MEDS: predniSONE 5 MG TAB PO SCH (08:27)
[2018-01-01] MEDS: MONTELUKAST 10 MG TAB PO SCH (08:27)
[2018-01-01] MEDS: ASPIRIN 325 MG TAB PO SCH (08:27)
[2018-01-01] MEDS: SODIUM CHLORIDE 0.9% 1,000 ML IV SCH ×2 (08:28→18:19)
[2018-01-01 08:51] LABS: Appearance,Urine Clear (Clear); Bilirubin,Urine Negative (Negative); Blood,Urine Negative (Negative); Color,Urine Yellow; Glucose,Urine (UA) Negative (Negative); Ketones,Urine Negative (Negative); Leukocyte Esterase,Urine Negative (Negative); Nitrite,Urine Negative (Negative); PH, Urine 5.5 (5.0-8.0); Protein,Urine Negative (Negative); Specific Gravity,Urine 1.013 (1.001-1.035); Urobilinogen,Urine <2.0 mg/dL (<2.0)
[2018-01-01 09:03] VITALS: BMI 28.3
[2018-01-01 09:45] LABS: Basophils % (A) 0 %; Eosinophils # (A) 0.1 k/uL (0-0.7); Eosinophils % (A) 1 %; HCT 30.6 % (34.0-46.0); HGB 9.8 gm/dL (11.4-16.0); Hypochromasia Slight; Lymphocytes # (A) 1.5 k/uL (1.0-4.8); Lymphocytes % (A) 15 %; MCH 29.9 pg (25.0-35.0); MCHC 32.1 g/dL (31.0-37.0); Mean Platelet Volume 7.2; Monocytes # (A) 0.5 k/uL (0-1.0); Monocytes % (A) 5 %; Neutrophils # (A) 7.8 k/uL (1.3-7.7); Neutrophils % (A) 78 %; Platelet Count 260 k/uL (150-450); RBC 3.29 m/uL (3.80-5.40); RDW 14.3 % (11.5-15.5)
[2018-01-01 09:58] LABS: Calcium 8.2 mg/dL (8.4-10.2); Potassium 3.9 mmol/L (3.5-5.1); Total Bilirubin 0.7 mg/dL (0.2-1.3); Total Protein 5.6 g/dL (6.3-8.2)
--- NOTE | 2018-01-01 10:22 | P.CNOR ---
History of Present Illness - HPI Consult date: 01/01/18 Consult reason: joint pain (Left knee pain, swelling.) History of present illness: his is an 87-year-old female admitted to [facility] after a fall yesterday. She sustained injury to her left knee. The patient lives in a small shelter for patients with dementia. She is admitted for further evaluation and possible ECF placement. We're consulted for orthopedic evaluation. 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 per pt's daughter-pt has a sore in outh from her partial plate.dementia w/ "" History of Any Multi-Drug Resistant Organisms: None Reported Past Surgical History: Orthopedic Surgery, Tonsillectomy Additional Past Surgical History / Comment(s): X2 RT hip replacement, cataract Past Anesthesia/Blood Transfusion Reactions: No Reported Reaction Past Psychological History: Anxiety, Depression Additional Psychological History / Comment(s): PT [facility] AT [facility] SIN[facility]. USES A WALKER Smoking Status: Never smoker Past Alcohol Use History: None Reported Past Drug Use History: None Reported - Past Family History Sister(s) Family Medical History: Cancer Additional Family Medical History / Comment(s): BREAST CANCER Father Family Medical History: No Reported History Additional Family Medical History / Comment(s): FROM OLD AGE Medications and Allergies Home Medications Medication Instructions Recorded Confirmed Type Bimatoprost [Lumigan .01% Ophth 1 drop BOTH EYES HS@199911/11/16 12/31/17 History Soln] Sertraline HCl [Zoloft] 100 mg PO DAILY@169911/11/16 12/31/17 History ALPRAZolam [Xanax] 0.25 mg PO Q6H PRN 04/03/17 12/31/17 History Acetaminophen [Tylenol Extra 500 mg PO Q4HR PRN 04/03/17 12/31/17 History Strength] Albuterol Inhaler [Ventolin Hfa 2 puff INHALATION RT-QID PRN 04/03/17 12/31/17 History Inhaler] Albuterol Nebulized [Ventolin 2.5 mg INHALATION RT-QID PRN 04/03/17 12/31/17 History Nebulized] Clotrimazole/Betameth Cream 1 applic TOPICAL BID PRN 04/03/17 12/31/17 History [Lotrisone] Doxylamine Succinate [Unisom] 50 mg PO HS@199904/03/17 12/31/17 History Simvastatin [Zocor] 20 mg PO DAILY@1700 04/03/17 12/31/17 History predniSONE 5 mg PO DAILY@0804/03/17 12/31/17 History Aspirin 325 mg PO DAILY@79912/31/17 12/31/17 History Cranberry Fruit Concentrate 450 mg PO BID@,12/31/17 12/31/17 History [Cranberry] Furosemide [Lasix] 40 mg PO DAILY@0812/31/17 12/31/17 History HYDROcodone/APAP 5-325MG [[place] 1 - 2 tab PO Q6HR PRN #12 tab 12/31/17 Rx 5-325] Metoprolol Tartrate [Lopressor] 12.5 mg PO TID@,,12/31/17 12/31/17 History Montelukast [Singulair] 10 mg PO DAILY@79912/31/17 12/31/17 History Vit C/E/Zn/Coppr/Lutein/Zeaxan 1 cap PO BID@,12/31/17 12/31/17 History [Preservision Areds 2 Softgel] Allergies Allergy/AdvReac Type Severity Reaction Status Date / Time No Known Allergies Allergy Verified 12/31/17 18:00 Physical Examination This is a pleasant 87-year-old female in no acute distress. She is alert but confused. She does not recall recent events. She does not remember the fall or why she is here in the hospital. Exam of the head neck reveal no obvious deformity. She has fairly good cervical spine motion without difficulty or pain. Exam of the upper extremities reveals no obvious deformity. She has full shoulder, elbow, wrist and finger motion without difficulty or pain. Neurovascular status to the upper extremities is intact. Exam of the lower extremities reveals ecchymosis and swelling to the anterior aspect of her knee. There is some fluctuance about the prepatellar area and soft tissue. There are no lacerations noted. Very small abrasion noted in the area of the hematoma. She is able to lift each leg off the bed independently with good strength. She is able to sustain straight leg raise against resistance. Extensor mechanism is intact. She has full foot and ankle motion bilaterally. Neurovascular status to the lower extremities intact. Results X-rays and CT of the left knee reveal no bony abnormality. There is hematoma noted to the anterior aspect of the knee in the region of the prepatellar bursa. Minimal joint effusion noted. - Labs Labs: Abnormal Lab Results - Last 24 Hours (Table) 12/31/17 12/31/17 01/01/18 Range/Units 21:03 21:03 09:18 WBC 14.0 H (3.8-10.6) k/uL RBC 3.74 L 3.29 L (3.80-5.40) m/uL Hgb 11.2 L 9.8 L (11.4-16.0) gm/dL Hct 30.6 L (34.0-46.0) % Neutrophils # 11.0 H 7.8 H (1.3-7.7) k/uL BUN 20 H (7-17) mg/dL Glucose 111 H (74-99) mg/dL Calcium (8.4-10.2) mg/dL Total Protein (6.3-8.2) g/dL Albumin (3.5-5.0) g/dL 01/01/18 Range/Units 09:18 WBC (3.8-10.6) k/uL RBC (3.80-5.40) m/uL Hgb (11.4-16.0) gm/dL Hct (34.0-46.0) % Neutrophils # (1.3-7.7) k/uL BUN (7-17) mg/dL Glucose 122 H (74-99) mg/dL Calcium 8.2 L (8.4-10.2) mg/dL Total Protein 5.6 L (6.3-8.2) g/dL Albumin 3.0 L (3.5-5.0) g/dL H & H 12/31/17 01/01/18 Range/Units 21:03 09:18 Hgb 11.2 L 9.8 L (11.4-16.0) gm/dL Hct 34.0 30.6 L (34.0-46.0) % Result Diagrams: 01/01/18 09:18 01/01/18 09:18 Assessment and Plan (1) Traumatic hematoma of left knee Current Visit: Yes Status: Acute Code(s): S80.02XA - CONTUSION OF LEFT KNEE , INITIAL ENCOUNTER SNOMED Code(s): 27400159 (2) Dementia Current Visit: Yes Status: Acute Code(s): F03.90 - UNSPECIFIED DEMENTIA WITHOUT BEHAVIORAL DISTURBANCE SNOMED Code(s): 21961836 (3) Knee effusion, left Current Visit: Yes Status: Acute Code(s): M25.462 - EFFUSION, LEFT KNEE SNOMED Code(s): 154559939 (4) Unable to ambulate Current Visit: Yes Status: Acute Code(s): R26.2 - DIFFICULTY IN WALKING, NOT ELSEWHERE CLASSIFIED SNOMED Code(s): 645883991 Plan: The clinical and x-ray findings are discussed the patient and her granddaughter. It is recommended that she go into a knee immobilizer. She may bear weight as tolerated in the brace with a walker. Continue ice to the knee. There is no surgical indication at this time. We will continue to follow. The granddaughter is advised to watch for any redness to the knee. Once discharge to a follow-up as an outpatient.
[2018-01-01] MEDS: MORPHINE SULFATE 4 MG/ML SYRINGE IV PRN ×2 (10:25→14:49)
--- NOTE | 2018-01-01 11:03 | P.HPIM ---
History of Present Illness H&P Date: 01/01/18 Chief Complaint: Fall with knee contusion This is a 87-year-old patient of Dr. Mckinley. Patient presented to the emergency room after sustaining a fall at her assisted living facility. Patient states she was ambulating without her walker and tripped over her shoe and fell onto her left knee. Denies hitting her head. Elbow x-ray completed showing laceration deformity no fracture. Hip and pelvis x-ray completed showing no acute abnormality of the pelvis and left hip. Knee x-ray completed showing osteoarthritis. Prepatellar bursitis. No fracture. CT of the knee completed showing anterior soft tissue swelling. No fracture seen. Mild OSTEOARTHRITIS in the medial joint space. Orthopedic services have been consulted. She completed showing normal sinus rhythm. Pulses criteria for left ventricular hypertrophy. Nonspecific ST abnormality. Per orthopedic services patient sustained a traumatic hematoma of the left knee and will require a knee immobilizer and she may bear weight as tolerated in the brace with a walker. No surgical indication at this time. Patient denies any loss of consciousness prior to event. Patient denies any recent illness. Per patient's granddaughter at bedside patient is currently at baseline confusion. Patient denies any chest pain or shortness of breath. Patient denies any nausea vomiting or diarrhea. Patient denies any urinary burning or frequency. 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 per pt's daughter-pt has a sore in outh from her partial plate.dementia w/ "sundowners" History of Any Multi-Drug Resistant Organisms: None Reported Past Surgical History: Orthopedic Surgery, Tonsillectomy Additional Past Surgical History / Comment(s): X2 RT hip replacement, cataract Past Anesthesia/Blood Transfusion Reactions: No Reported Reaction Past Psychological History: Anxiety, Depression Additional Psychological History / Comment(s): PT L[facility] AT [facility] SINCE MARCH. USES A WALKER Smoking Status: Never smoker Past Alcohol Use History: None Reported Past Drug Use History: None Reported - Past Family History Sister(s) Family Medical History: Cancer Additional Family Medical History / Comment(s): BREAST CANCER Father Family Medical History: No Reported History Additional Family Medical History / Comment(s): FROM OLD AGE Medications and Allergies Home Medications Medication Instructions Recorded Confirmed Type Bimatoprost [Lumigan .01% Ophth 1 drop BOTH EYES HS@199911/11/16 12/31/17 History Soln] Sertraline HCl [Zoloft] 100 mg PO DAILY@169911/11/16 12/31/17 History ALPRAZolam [Xanax] 0.25 mg PO Q6H PRN 04/03/17 12/31/17 History Acetaminophen [Tylenol Extra 500 mg PO Q4HR PRN 04/03/17 12/31/17 History Strength] Albuterol Inhaler [Ventolin Hfa 2 puff INHALATION RT-QID PRN 04/03/17 12/31/17 History Inhaler] Albuterol Nebulized [Ventolin 2.5 mg INHALATION RT-QID PRN 04/03/17 12/31/17 History Nebulized] Clotrimazole/Betameth Cream 1 applic TOPICAL BID PRN 04/03/17 12/31/17 History [Lotrisone] Doxylamine Succinate [Unisom] 50 mg PO HS@199904/03/17 12/31/17 History Simvastatin [Zocor] 20 mg PO DAILY@169904/03/17 12/31/17 History predniSONE 5 mg PO DAILY@79904/03/17 12/31/17 History Aspirin 325 mg PO DAILY@79912/31/17 12/31/17 History Cranberry Fruit Concentrate 450 mg PO BID@12/31/17 12/31/17 History [Cranberry] Furosemide [Lasix] 40 mg PO DAILY@79912/31/17 12/31/17 History HYDROcodone/APAP 5-325MG [[place] 1 - 2 tab PO Q6HR PRN #12 tab 12/31/17 Rx 5-325] Metoprolol Tartrate [Lopressor] 12.5 mg PO TID@,,12/31/17 12/31/17 History Montelukast [Singulair] 10 mg PO DAILY@79912/31/17 12/31/17 History Vit C/E/Zn/Coppr/Lutein/Zeaxan 1 cap PO BID@08,17 12/31/17 12/31/17 History [Preservision Areds 2 Softgel] Allergies Allergy/AdvReac Type Severity Reaction Status Date / Time No Known Allergies Allergy Verified 12/31/17 18:00 Physical Exam Vitals: Vital Signs Temp Pulse Pulse Resp BP BP Pulse Ox 01/01/18 08:55 95 18 01/01/18 06:19 97.3 F L 95 18 124/67 96 01/01/18 02:42 97.9 F 89 18 142/66 96 01/01/18 01:27 97.9 F 01/01/18 01:14 79 18 118/58 99 12/31/17 23:48 76 18 123/64 99 12/31/17 22:12 98.0 F 89 18 118/67 98 12/31/17 17:44 98.9 F 98 18 137/71 96 Intake and Output 12/31/17 01/01/18 01/01/18 22:59 06:59 14:59 Other: Weight 65.771 kg 65.771 kg 65.771 kg Results CBC & Chem 7: 01/01/18 09:18 01/01/18 09:18 Labs: Abnormal Lab Results - Last 24 Hours (Table) 12/31/17 12/31/17 01/01/18 Range/Units 21:03 21:03 09:18 WBC 14.0 H (3.8-10.6) k/uL RBC 3.74 L 3.29 L (3.80-5.40) m/uL Hgb 11.2 L 9.8 L (11.4-16.0) gm/dL Hct 30.6 L (34.0-46.0) % Neutrophils # 11.0 H 7.8 H (1.3-7.7) k/uL BUN 20 H (7-17) mg/dL Glucose 111 H (74-99) mg/dL Calcium (8.4-10.2) mg/dL Total Protein (6.3-8.2) g/dL Albumin (3.5-5.0) g/dL 01/01/18 Range/Units 09:18 WBC (3.8-10.6) k/uL RBC (3.80-5.40) m/uL Hgb (11.4-16.0) gm/dL Hct (34.0-46.0) % Neutrophils # (1.3-7.7) k/uL BUN (7-17) mg/dL Glucose 122 H (74-99) mg/dL Calcium 8.2 L (8.4-10.2) mg/dL Total Protein 5.6 L (6.3-8.2) g/dL Albumin 3.0 L (3.5-5.0) g/dL Assessment and Plan Assessment: 1. Status post fall with Traumatic hematoma and contusion to left elbow. X- ray of left elbow completed showing laceration deformity. No fracture. X-ray of left hip and pelvis completed showing no acute abnormality of the pelvis and left hip. X-ray of knee completed showing osteoporosis. Prepatellar bursitis. No fracture. Knee CT completed showing anterior soft tissue swelling. No fracture seen. Mild osteoarthritis in the medial joint space. Orthopedic service consulted. Per orthopedic services recommended that she go into a knee immobilizer. Patient may bear weight as tolerated in the brace with a walker and continue ice to the knee. No surgical: Indication at this time. 2. Dementia. patient currently resides at assisted living for dementia patients. 3. History of CVA 4. History of GERD 5. History of anxiety and depression 6. History of pneumonia. Patient is currently on prednisone 5 mg by mouth daily. Patient is a poor historian and does not know why she is on this medication. White blood cell initially elevated at 14.0. Urine culture ordered. Repeat WBC 10.0. Patient denies any cough or shortness of breath. Chest x-ray has been ordered Due to hematoma in left knee DVT prophylaxis SCDs. GI prophylaxis protonix. Patient'sfamily concerned about returning to assisted living due to lack of mobility. Social work and case management have been consulted for possible rehab. Physical therapy consulted Time with Patient: Greater than 30 (Greater than 60% of the total time spent in counseling and coordination of care. I performed an examination of the patient and discussed their management with the Nurse Practitioner. I have reviewed the Nurse Practitioner's notes and agree with the documented findings and plan of care)
--- NOTE | 2018-01-01 15:34 | XR ---
EXAMINATION TYPE: XR chest 2V DATE OF EXAM: 01/01/2018 COMPARISON: Chest x-ray April 07, 2017. CT chest May 17, 2017. HISTORY: Pneumonia progress study. TECHNIQUE: Frontal and lateral views of the chest are obtained. FINDINGS: There is persistent cardiomegaly with atherosclerotic thoracic aorta. There is elevated r ight hemidiaphragm with chronic parenchymal change including bibasilar scarring. There is no new susp icious focal airspace opacity, pleural effusion, or pneumothorax seen bilaterally. The osseous struct ures are demineralized. Dense mitral annular calcifications are redemonstrated. IMPRESSION: Cardiomegaly and chronic changes without acute pulmonary process.
[2018-01-01] MEDS ORDERED: ATORVASTATIN 10 MG TAB PO SCH (17:00)
[2018-01-01] MEDS ORDERED: SERTRALINE 100 MG TAB PO SCH (17:00)
[2018-01-01] MEDS: HYDROmorphone 1 MG/ML 1 ML SYRINGE IVP PRN (19:52)
[2018-01-01] MEDS ORDERED: LATANOPROST 0.005% OPHTH DROPS 2.5 ML BTL BOTH EYES SCH (20:00)
[2018-01-01] MEDS ORDERED: DOXYLAMINE SUCCINATE 50 MG PO SCH (20:00)
[2018-01-01] MEDS: IBUPROFEN 400 MG TAB PO PRN (21:43)
[2018-01-02] MEDS: SODIUM CHLORIDE 0.9% 1,000 ML IV SCH (03:38)
[2018-01-02] MEDS: HYDROmorphone 1 MG/ML 1 ML SYRINGE IVP PRN (03:38)
[2018-01-02 07:14] LABS: Basophils % (A) 0 %; Eosinophils # (A) 0.3 k/uL (0-0.7); Eosinophils % (A) 3 %; HCT 26.3 % (34.0-46.0); HGB 8.5 gm/dL (11.4-16.0); Hypochromasia Slight; Lymphocytes # (A) 2.1 k/uL (1.0-4.8); Lymphocytes % (A) 24 %; MCH 29.8 pg (25.0-35.0); MCHC 32.3 g/dL (31.0-37.0); MCV 92.1 fL (80.0-100.0); Mean Platelet Volume 7.6; Monocytes # (A) 0.5 k/uL (0-1.0); Monocytes % (A) 6 %; Neutrophils # (A) 5.7 k/uL (1.3-7.7); Neutrophils % (A) 66 %; Platelet Count 227 k/uL (150-450); RBC 2.86 m/uL (3.80-5.40); RDW 14.5 % (11.5-15.5); WBC 8.7 k/uL (3.8-10.6)
[2018-01-02 07:16] LABS: Albumin 2.6 g/dL (3.5-5.0); Calcium 8.2 mg/dL (8.4-10.2); Potassium 3.8 mmol/L (3.5-5.1); Total Bilirubin 0.4 mg/dL (0.2-1.3); Total Protein 5.1 g/dL (6.3-8.2)
[2018-01-02] MEDS: ASPIRIN 325 MG TAB PO SCH (08:19)
[2018-01-02] MEDS: FUROSEMIDE 40 MG TAB PO SCH (08:19)
[2018-01-02] MEDS: predniSONE 5 MG TAB PO SCH (08:20)
[2018-01-02] MEDS: MONTELUKAST 10 MG TAB PO SCH (08:20)
[2018-01-02] MEDS: METOPROLOL TARTRATE 12.5 MG TAB PO SCH (08:20)
[2018-01-02] MEDS: PANTOPRAZOLE 40 MG/10 ML VIAL IV SCH (08:20)
[2018-01-02] MEDS: IBUPROFEN 400 MG TAB PO PRN (12:03)
[2018-01-02 12:31] VITALS: BP 123/67; PULSE 83; RESP 16; TEMP 98.2
--- NOTE | 2018-01-02 13:34 | P.DS ---
Providers Date of admission: 01/01/18 00:11 Expected date of discharge: 01/02/18 Attending physician: Selin Antonio Consults: 12/31/17 23:26 Consult Physician Stat Consulting Provider: Daryl Rosales Consult Reason/Comments: L knee contusion, Pain with ROM, unable to ambulate Do you want consulting provider notified?: Yes, Notify in am Primary care physician: Any Mckinley Hospital Course: Discharge diagnosis 1. Status post fall with Traumatic hematoma and contusion to left elbow. X- ray of left elbow completed showing laceration deformity. No fracture. X-ray of left hip and pelvis completed showing no acute abnormality of the pelvis and left hip. X-ray of knee completed showing osteoporosis. Prepatellar bursitis. No fracture. Knee CT completed showing anterior soft tissue swelling. No fracture seen. Mild osteoarthritis in the medial joint space. Orthopedic service consulted. Per orthopedic services recommended that she go into a knee immobilizer. Patient may bear weight as tolerated in the brace with a walker and continue ice to the knee. No surgical: Indication at this time. 2. Dementia. patient currently resides at assisted living for dementia patients. 3. History of CVA 4. History of GERD 5. History of anxiety and depression 6. History of pneumonia. Patient is currently on prednisone 5 mg by mouth daily. Patient is a poor historian and does not know why she is on this medication. White blood cell initially elevated at 14.0. Urine culture ordered. Repeat WBC 10.0. Patient denies any cough or shortness of breath. Chest x-ray completed showing cardiomegaly and chronic changes without acute pulmonary process. White blood cell improved 8.7 7. Anemia with acute blood loss due to left knee hematoma. Patient will be DC' d home on ferrous sulfate. CBC has been ordered 3 days patient to follow-up outpatient with orthopedic services and primary care provider Hospital course This is a 87-year-old patient of Dr. Mckinley. Patient presented to the emergency room after sustaining a fall at her assisted living facility. Patient states she was ambulating without her walker and tripped over her shoe and fell onto her left knee. Denies hitting her head. Elbow x-ray completed showing laceration deformity no fracture. Hip and pelvis x-ray completed showing no acute abnormality of the pelvis and left hip. Knee x-ray completed showing osteoarthritis. Prepatellar bursitis. No fracture. CT of the knee completed showing anterior soft tissue swelling. No fracture seen. Mild OSTEOARTHRITIS in the medial joint space. Orthopedic services have been consulted. She completed showing normal sinus rhythm. Pulses criteria for left ventricular hypertrophy. Nonspecific ST abnormality. Per orthopedic services patient sustained a traumatic hematoma of the left knee and will require a knee immobilizer and she may bear weight as tolerated in the brace with a walker. No surgical indication at this time. Patient denies any loss of consciousness prior to event. Patient denies any recent illness. Per patient's granddaughter at bedside patient is currently at baseline confusion. Patient denies any chest pain or shortness of breath. Patient denies any nausea vomiting or diarrhea. Patient denies any urinary burning or frequency. On 01/02/2018 patient be discharged back to assisted living facility. Per case management assisted living facility can handle patient as needed for condition with knee brace. Patient will be discharged home on ferrous sulfate 325 twice a day. CBC has been ordered for 3 days. Patient to follow-up closely with orthopedics and primary care provider. Patient states she is feeling much improved. Patient is eager to get home. Patient denies chest pain or shortness breath. Patient denies any urinary burning or frequency. Patient denies nausea vomiting or diarrhea. I performed an examination of the patient and discussed their management with the Nurse Practitioner. I have reviewed the Nurse Practitioner's notes and agree with the documented findings and plan of care Patient Condition at Discharge: Stable Plan - Discharge Summary New Discharge Prescriptions: New HYDROcodone/APAP 5-325MG [[place] 5-325] 1 - 2 tab PO Q6HR PRN #12 tab PRN Reason: Pain Ferrous Sulfate [Feosol] 325 mg PO BID #60 tab Continue Sertraline HCl [Zoloft] 100 mg PO DAILY@1700 Bimatoprost [Lumigan .01% Ophth Soln] 1 drop BOTH EYES HS@2000 Clotrimazole/Betameth Cream [Lotrisone] 1 applic TOPICAL BID PRN PRN Reason: Rash Acetaminophen [Tylenol Extra Strength] 500 mg PO Q4HR PRN PRN Reason: Pain Doxylamine Succinate [Unisom] 50 mg PO HS@2000 predniSONE 5 mg PO DAILY@0800 Albuterol Inhaler [Ventolin Hfa Inhaler] 2 puff INHALATION RT-QID PRN PRN Reason: Shortness Of Breath Simvastatin [Zocor] 20 mg PO DAILY@1699 ALPRAZolam [Xanax] 0.25 mg PO Q6H PRN PRN Reason: Anxiety Albuterol Nebulized [Ventolin Nebulized] 2.5 mg INHALATION RT-QID PRN PRN Reason: Shortness Of Breath Furosemide [Lasix] 40 mg PO DAILY@0800 Montelukast [Singulair] 10 mg PO DAILY@08 Vit C/E/Zn/Coppr/Lutein/Zeaxan [Preservision Areds 2 Softgel] 1 cap PO BID@ Cranberry Fruit Concentrate [Cranberry] 450 mg PO BID@ Metoprolol Tartrate [Lopressor] 12.5 mg PO TID@ Discontinued Aspirin 325 mg PO DAILY@799 Discharge Medication List Bimatoprost [Lumigan .01% Ophth Soln] 1 drop BOTH EYES HS@199911/11/16 [History ] Sertraline HCl [Zoloft] 100 mg PO DAILY@169911/11/16 [History] ALPRAZolam [Xanax] 0.25 mg PO Q6H PRN 04/03/17 [History] Acetaminophen [Tylenol Extra Strength] 500 mg PO Q4HR PRN 04/03/17 [History] Albuterol Inhaler [Ventolin Hfa Inhaler] 2 puff INHALATION RT-QID PRN 04/03/17 [ History] Albuterol Nebulized [Ventolin Nebulized] 2.5 mg INHALATION RT-QID PRN 04/03/17 [ History] Clotrimazole/Betameth Cream [Lotrisone] 1 applic TOPICAL BID PRN 04/03/17 [ History] Doxylamine Succinate [Unisom] 50 mg PO HS@199904/03/17 [History] Simvastatin [Zocor] 20 mg PO DAILY@169904/03/17 [History] predniSONE 5 mg PO DAILY@79904/03/17 [History] Cranberry Fruit Concentrate [Cranberry] 450 mg PO BID@12/31/17 [History] Furosemide [Lasix] 40 mg PO DAILY@0812/31/17 [History] HYDROcodone/APAP 5-325MG [[place] 5-325] 1 - 2 tab PO Q6HR PRN #12 tab 12/31/17 [ Rx] Metoprolol Tartrate [Lopressor] 12.5 mg PO TID@08,14,20 12/31/17 [History] Montelukast [Singulair] 10 mg PO DAILY@0800 12/31/17 [History] Vit C/E/Zn/Coppr/Lutein/Zeaxan [Preservision Areds 2 Softgel] 1 cap PO BID@08, 17 12/31/17 [History] Ferrous Sulfate [Feosol] 325 mg PO BID #60 tab 01/02/18 [Rx] Follow up Appointment(s)/Referral(s): Any Mckinley MD [Primary Care Provider] - 1-2 days Daryl Rosales MD [STAFF PHYSICIAN] - 10 Days Ambulatory/Diagnostic Orders: Complete Blood Count w/diff [LAB.AMB] Time Frame: 3 Days, Location: None Selected Patient Instructions/Handouts: Knee Sprain (ED), Fall Prevention for Older Adults (ED) Activity/Diet/Wound Care/Special Instructions: Patient advised to follow-up with network diagnostic support specialist tomorrow. Return any immobilizer. Return to the emergency department if any alarming signs or symptoms occur. Continue knee immobilizer. Weightbearing as tolerated in brace with walker continue ice to knee. CBC ordered for 3 days. [facility] Discharge Disposition: OTHER INSTITUTION NOT DEFINED
== END 2018-01-02 14:28 | disposition other institution (70) ==
LOC: EC 17:31 → 5MS5E 01-01 00:11
PROVIDERS: ADMIT Internal Medicine; ATTEND Internal Medicine
DX: S50.02XA Contusion of left elbow, initial encounter (principal); S80.02XA Contusion of left knee, initial encounter; M25.552 Pain in left hip; F03.90 Unspecified dementia, unspecified severity, without behavioral disturbance, psychotic disturbance, mood disturbance, and anxiety; Z86.73 Personal history of transient ischemic attack (TIA), and cerebral infarction without residual deficits; K21.9 Gastro-esophageal reflux disease without esophagitis; F32.9 Major depressive disorder, single episode, unspecified; F41.9 Anxiety disorder, unspecified; Z87.01 Personal history of pneumonia (recurrent); D62 Acute posthemorrhagic anemia; Y92.099 Unspecified place in other non-institutional residence as the place of occurrence of the external cause; W01.0XXA Fall on same level from slipping, tripping and stumbling without subsequent striking against object, initial encounter; Z79.899 Other long term (current) drug therapy; Z79.82 Long term (current) use of aspirin; E78.5 Hyperlipidemia, unspecified; R41.3 Other amnesia; H40.9 Unspecified glaucoma; R42 Dizziness and giddiness; Z87.440 Personal history of urinary (tract) infections; C44.311 Basal cell carcinoma of skin of nose; Z80.3 Family history of malignant neoplasm of breast; M19.90 Unspecified osteoarthritis, unspecified site; I83.90 Asymptomatic varicose veins of unspecified lower extremity
CPT/HCPCS: 99285 ×2; 96372 ×2; 96361 ×3; 96376 ×2; 96374; 96375; 36415; 93005; 97116; 97162; 80053 ×3; 85025 ×3; 81003; 87086; 73502; 73080; 73562; 71046; 73700; G0378 ×2; L1830; J2270 ×2; J1170 ×2; J7512 ×2; C9113 ×2

== ENCOUNTER 2018-01-16 22:21 | Inpatient (IN) | payer MEDICARE ==
--- NOTE | 2018-01-16 23:03 | ED ---
Fall HPI - General Source: patient (baseline dementia), family (daughter at bedside), RN notes reviewed Mode of arrival: EMS <Ginette Triana - Last Filed: 01/17/18 01:50> <Mariah Franco - Last Filed: 01/17/18 03:15> - General Chief Complaint: Fall Stated Complaint: FALL Time Seen by Provider: 01/16/18 22:41 - History of Present Illness Initial Comments: This is an 87-year-old female who presents to the emergency department with chief complaint of fall injury. Patient is a resident at a local area [facility] home. Patient does have baseline dementia so history is limited. Her daughter is at bedside who contributes to history. It is reported the patient was sitting in bed this evening. She rolled off the bed and landed on her left knee. The [facility] home workers deny any loss of consciousness. She is not on any blood thinners. Patient only complains of left knee pain. Daughter states that 2 weeks ago patient had a fall and sustained a wound to the left knee. She has been seeing Dr. Rosales and the last appointment was this past Friday. They have plans for possible skin grafting. They have been doing wet-to-dry dressings at the [facility] home. Patient reopened the wound this evening when she fell. She denies any recent fevers or chills, chest pain shortness of breath, abdominal pain, nausea or vomiting, extremity pain, head, neck or back pain. (Ginette Triana) - Related Data Home Medications Medication Instructions Recorded Confirmed Bimatoprost [Lumigan .01% Ophth 1 drop BOTH EYES HS@199911/11/16 01/16/18 Soln] Sertraline HCl [Zoloft] 100 mg PO DAILY@169911/11/16 01/16/18 Acetaminophen [Tylenol Extra 500 mg PO Q4HR PRN 04/03/17 01/16/18 Strength] Albuterol Inhaler [Ventolin Hfa 2 puff INHALATION RT-QID PRN 04/03/17 01/16/18 Inhaler] Albuterol Nebulized [Ventolin 2.5 mg INHALATION RT-QID PRN 04/03/17 01/16/18 Nebulized] Clotrimazole/Betameth Cream 1 applic TOPICAL BID PRN 04/03/17 01/16/18 [Lotrisone] Doxylamine Succinate [Unisom] 50 mg PO HS@199904/03/17 01/16/18 Simvastatin [Zocor] 20 mg PO DAILY@1700 04/03/17 01/16/18 predniSONE 5 mg PO DAILY@0800 04/03/17 01/16/18 Cranberry Fruit Concentrate 450 mg PO BID@,12/31/17 01/16/18 [Cranberry] Furosemide [Lasix] 40 mg PO DAILY@0812/31/17 01/16/18 Metoprolol Tartrate [Lopressor] 12.5 mg PO TID@,,12/31/17 01/16/18 Montelukast [Singulair] 10 mg PO DAILY@79912/31/17 01/16/18 Vit C/E/Zn/Coppr/Lutein/Zeaxan 1 cap PO BID@,12/31/17 01/16/18 [Preservision Areds 2 Softgel] Aspirin 325 mg PO DAILY 01/16/18 01/16/18 Ibuprofen [Motrin Ib] 400 mg PO Q6H PRN 01/16/18 01/16/18 Smooth Lax 17 g PO DAILY PRN 01/16/18 01/16/18 Temazepam [Restoril] 15 mg PO HS PRN 01/16/18 01/16/18 Previous Rx's Medication Instructions Recorded Ferrous Sulfate [Feosol] 325 mg PO BID #60 tab 01/02/18 Allergies Allergy/AdvReac Type Severity Reaction Status Date / Time No Known Allergies Allergy Verified 01/16/18 22:53 Review of Systems ROS Other: All systems not noted in ROS Statement are negative. <Ginette Triana M - Last Filed: 01/17/18 01:50> ROS Other: All systems not noted in ROS Statement are negative. <Mariah Franco - Last Filed: 01/17/18 03:15> ROS Statement: Those systems with pertinent positive or pertinent negative responses have been documented in the HPI. 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 per pt's daughter-pt has a sore in outh from her partial plate.dementia w/ "sundowners" History of Any Multi-Drug Resistant Organisms: None Reported Past Surgical History: Orthopedic Surgery, Tonsillectomy Additional Past Surgical History / Comment(s): X2 RT hip replacement, cataract Past Anesthesia/Blood Transfusion Reactions: No Reported Reaction Past Psychological History: Anxiety, Depression Smoking Status: Never smoker Past Alcohol Use History: None Reported Past Drug Use History: None Reported - Past Family History Sister(s) Family Medical History: Cancer Additional Family Medical History / Comment(s): BREAST CANCER Father Family Medical History: No Reported History Additional Family Medical History / Comment(s): FROM OLD AGE <Ginette Triana - Last Filed: 01/17/18 01:50> General Exam Limitations: no limitations <Ginette Triana - Last Filed: 01/17/18 01:50> <Mariah Franco - Last Filed: 01/17/18 03:15> - General Exam Comments Initial Comments: General: Awake and alert, well-developed; in no apparent distress. Pleasantly demented. Lying comfortably on ED stretcher with daughter at bedside. HEENT: Head atraumatic, normocephalic. Pupils are equal, round and reactive to light. Extraocular movements intact. Oropharynx moist without erythema or exudate. Neck: Supple. Normal ROM. Cardiovascular: Regular rate and rhythm. No murmurs, rubs or gallops. Chest symmetrical. Respiratory: Lungs clear to auscultation bilaterally. No wheezes, rales or rhonchi. Normal respiratory effort with no use of accessory muscles. Musculoskeletal: Normal range of motion of bilateral upper and lower extremities. No tenderness on palpation of upper extremities or right lower extremity. Approximately 3.0 cm in diameter circular open wound with overlying drying eschar and surrounding ecchymosis. Mild pitting edema left lower extremity. Sensation is intact. Pedal pulses are 2+, equal and palpable bilaterally. Skin: [place], warm and dry. Neurological: Alert and oriented x3. CN II-XII grossly intact. Speech is fluent. No focal neuro deficits. (Ginette Triana) Vital Signs 01/16/18 01/17/18 22:31 01:04 Temperature 97.4 F L Pulse Rate 84 88 Respiratory 16 16 Rate Blood Pressure 156/73 149/65 O2 Sat by Pulse 96 94 L Oximetry Medical Decision Making - Lab Data Result diagrams: 01/16/18 23:22 01/16/18 23:22 - Radiology Data Radiology results: report reviewed <Ginette Triana - Last Filed: 01/17/18 01:50> - Lab Data Result diagrams: 01/16/18 23:22 01/16/18 23:22 <Mariah Franco Darren - Last Filed: 01/17/18 03:15> - Medical Decision Making This is an 87-year-old female who presents to the emergency department with chief complaint of fall injury. Patient is a resident at a local [facility] home. She is reported to have fallen from her bed. Daughter is present and continues to history. She states that 2 weeks ago patient had a fall and sustained a wound to her left knee. She has been followed by Dr. Rosales and has regular wound dressings. Upon falling today, the wound reopened. Wound was thoroughly cleansed and a new dressing was placed. A computed tomography scan of the brain and C-spine was obtained as the fall was not witnessed and the patient has dementia so is a poor historian and could not remember the incident. The scan revealed no acute abnormalities. Patient is not currently on blood thinners but does take daily aspirin. CBC, CMP and coags reveal no acute abnormalities. UA is positive for infection with positive nitrite, large leukocyte esterase, white blood cells and bacteria. Patient started on Rocephin. She will be admitted to Dr. Antonio for IV antibiotics and consult to Dr. Rosales for the knee wound. Her vital signs have been stable and she is in no acute distress. Her daughter is in agreement for admission and would prefer patient to be monitored in the hospital instead of returning to the [facility] home. (Ginette Triana) - Lab Data Lab Results 01/16/18 01/16/18 01/16/18 Range/Units 23:22 23:22 23:22 WBC 12.1 H (3.8-10.6) k/uL RBC 3.76 L (3.80-5.40) m/uL Hgb 11.0 L (11.4-16.0) gm/dL Hct 34.6 (34.0-46.0) % MCV 91.9 (80.0-100.0) fL MCH 29.1 (25.0-35.0) pg MCHC 31.7 (31.0-37.0) g/dL RDW 16.2 H (11.5-15.5) % Plt Count 421 (150-450) k/uL Neutrophils % 73 % Lymphocytes % 19 % Monocytes % 5 % Eosinophils % 2 % Basophils % 0 % Neutrophils # 8.9 H (1.3-7.7) k/uL Lymphocytes # 2.3 (1.0-4.8) k/uL Monocytes # 0.6 (0-1.0) k/uL Eosinophils # 0.3 (0-0.7) k/uL Basophils # 0.0 (0-0.2) k/uL Hypochromasia Slight Poikilocytosis Slight Anisocytosis Slight PT 9.8 (9.0-12.0) sec INR 1.0 (<1.2) APTT 20.1 L (22.0-30.0) sec Sodium 138 (137-145) mmol/L Potassium 3.9 (3.5-5.1) mmol/L Chloride 104 (98-107) mmol/L Carbon Dioxide 24 (22-30) mmol/L Anion Gap 10 mmol/L BUN 19 H (7-17) mg/dL Creatinine 0.77 (0.52-1.04) mg/dL Est GFR (CKD-EPI)AfAm 79 (>60 ml/min/1.73 sqM) Est GFR (CKD-EPI)NonAf 69 (>60 ml/min/1.73 sqM) Glucose 95 (74-99) mg/dL Calcium 8.8 (8.4-10.2) mg/dL Total Bilirubin 0.7 (0.2-1.3) mg/dL AST 36 (14-36) U/L ALT 29 (9-52) U/L Alkaline Phosphatase 88 (38-126) U/L Total Protein 6.8 (6.3-8.2) g/dL Albumin 3.5 (3.5-5.0) g/dL Urine Color Urine Appearance (Clear) Urine pH (5.0-8.0) Ur Specific [place] (1.001-1.035) Urine Protein (Negative) Urine Glucose (UA) (Negative) Urine Ketones (Negative) Urine Blood (Negative) Urine Nitrite (Negative) Urine Bilirubin (Negative) Urine Urobilinogen (<2.0) mg/dL Ur Leukocyte Esterase (Negative) Urine RBC (0-5) /hpf Urine WBC (0-5) /hpf Ur Squamous Epith Cells (0-4) /hpf Urine Bacteria (None) /hpf Hyaline Casts (0-2) /lpf Urine Mucus (None) /hpf 01/16/18 Range/Units 23:33 WBC (3.8-10.6) k/uL RBC (3.80-5.40) m/uL Hgb (11.4-16.0) gm/dL Hct (34.0-46.0) % MCV (80.0-100.0) fL MCH (25.0-35.0) pg MCHC (31.0-37.0) g/dL RDW (11.5-15.5) % Plt Count (150-450) k/uL Neutrophils % % Lymphocytes % % Monocytes % % Eosinophils % % Basophils % % Neutrophils # (1.3-7.7) k/uL Lymphocytes # (1.0-4.8) k/uL Monocytes # (0-1.0) k/uL Eosinophils # (0-0.7) k/uL Basophils # (0-0.2) k/uL Hypochromasia Poikilocytosis Anisocytosis PT (9.0-12.0) sec INR (<1.2) APTT (22.0-30.0) sec Sodium (137-145) mmol/L Potassium (3.5-5.1) mmol/L Chloride (98-107) mmol/L Carbon Dioxide (22-30) mmol/L Anion Gap mmol/L BUN (7-17) mg/dL Creatinine (0.52-1.04) mg/dL Est GFR (CKD-EPI)AfAm (>60 ml/min/1.73 sqM) Est GFR (CKD-EPI)NonAf (>60 ml/min/1.73 sqM) Glucose (74-99) mg/dL Calcium (8.4-10.2) mg/dL Total Bilirubin (0.2-1.3) mg/dL AST (14-36) U/L ALT (9-52) U/L Alkaline Phosphatase (38-126) U/L Total Protein (6.3-8.2) g/dL Albumin (3.5-5.0) g/dL Urine Color Yellow Urine Appearance Cloudy H (Clear) Urine pH 5.5 (5.0-8.0) Ur Specific [place] 1.009 (1.001-1.035) Urine Protein Trace H (Negative) Urine Glucose (UA) Negative (Negative) Urine Ketones Negative (Negative) Urine Blood Negative (Negative) Urine Nitrite Positive H (Negative) Urine Bilirubin Negative (Negative) Urine Urobilinogen <2.0 (<2.0) mg/dL Ur Leukocyte Esterase Large H (Negative) Urine RBC 2 (0-5) /hpf Urine WBC 34 H (0-5) /hpf Ur Squamous Epith Cells 17 H (0-4) /hpf Urine Bacteria Occasional H (None) /hpf Hyaline Casts 1 (0-2) /lpf Urine Mucus Rare H (None) /hpf - Radiology Data CT brain and C-spine without contrast impression: Mild multilevel spondylitic changes in the cervical spine. Fibrotic changes at the lung apices. Cerebral atrophy. No acute intracranial abnormality. (Ginette Triana) Disposition Is patient prescribed a controlled substance at d/c from ED?: No Time of Disposition: 01:50 <Ginette Triana - Last Filed: 01/17/18 01:50> <Mariah Franco - Last Filed: 01/17/18 03:15> Clinical Impression: UTI (urinary tract infection), Open wound of left knee Disposition: ADMITTED IP TO THIS HOSP Condition: Good
[2018-01-16 23:44] LABS: Anisocytosis Slight; Basophils % (A) 0 %; Eosinophils # (A) 0.3 k/uL (0-0.7); Eosinophils % (A) 2 %; HCT 34.6 % (34.0-46.0); Hypochromasia Slight; Lymphocytes # (A) 2.3 k/uL (1.0-4.8); Lymphocytes % (A) 19 %; MCH 29.1 pg (25.0-35.0); MCHC 31.7 g/dL (31.0-37.0); MCV 91.9 fL (80.0-100.0); Mean Platelet Volume 7.2; Monocytes # (A) 0.6 k/uL (0-1.0); Monocytes % (A) 5 %; Neutrophils # (A) 8.9 k/uL (1.3-7.7); Neutrophils % (A) 73 %; Platelet Count 421 k/uL (150-450); Poikilocytosis Slight; RBC 3.76 m/uL (3.80-5.40); RDW 16.2 % (11.5-15.5); WBC 12.1 k/uL (3.8-10.6)
[2018-01-16 23:55] LABS: Albumin 3.5 g/dL (3.5-5.0); Calcium 8.8 mg/dL (8.4-10.2); Potassium 3.9 mmol/L (3.5-5.1); Total Bilirubin 0.7 mg/dL (0.2-1.3); Total Protein 6.8 g/dL (6.3-8.2)
[2018-01-17 00:08] LABS: Prothrombin Time 9.8 sec (9.0-12.0)
--- NOTE | 2018-01-17 00:17 | CT ---
EXAMINATION TYPE: CT brain bennie murphy DATE OF EXAM: 01/16/2018 COMPARISON: None HISTORY: fall CT DLP: 1370.20 mGycm Automated exposure control for dose reduction was used. TECHNIQUE: CT scan of the head and cervical spine are performed without contrast. FINDINGS: There is cerebral cortical atrophy. There is no mass effect nor midline shift. There is n o sign of intracranial hemorrhage. The calvarium appears intact. The cervical vertebra have normal alignment. There is degenerative disc space narrowing from C3 to C7 with mild spurring. Posterior elements are intact. Facet joints are intact. The skull base is intact . IMPRESSION: Mild multilevel spondylotic changes in the cervical spine. Fibrotic changes at the lung apices. Cerebral atrophy. No acute intracranial abnormality.
[2018-01-17 00:18] LABS: Appearance,Urine Cloudy (Clear); Bacteria,Urine Occasional /hpf; Bilirubin,Urine Negative (Negative); Blood,Urine Negative (Negative); Color,Urine Yellow; Glucose,Urine (UA) Negative (Negative); Hyaline Casts,Urine 1 /lpf (0-2); Ketones,Urine Negative (Negative); Leukocyte Esterase,Urine Large (Negative); Mucus,Urine Rare /hpf; Nitrite,Urine Positive (Negative); PH, Urine 5.5 (5.0-8.0); Protein,Urine Trace (Negative); RBC,Urine 2 /hpf (0-5); Specific Gravity,Urine 1.009 (1.001-1.035); Squamous Epithelial Cell,Urine 17 /hpf (0-4); Urobilinogen,Urine <2.0 mg/dL (<2.0); WBC,Urine 34 /hpf (0-5)
[2018-01-17 00:32] LABS: Partial Thromboplastin Time 20.1 sec (22.0-30.0)
[2018-01-17] MEDS: SODIUM CHLORIDE 0.9% 1,000 ML IV SCH ×2 (06:56→17:17)
[2018-01-17] MEDS: FERROUS SULFATE 325 MG TAB PO SCH ×2 (08:24→20:55)
[2018-01-17] MEDS: FUROSEMIDE 40 MG TAB PO SCH (08:24)
[2018-01-17] MEDS: METOPROLOL TARTRATE 12.5 MG TAB PO SCH ×3 (08:24→20:55)
[2018-01-17] MEDS: ACETAMINOPHEN TAB 325 MG TAB PO PRN ×3 (08:24→20:59)
[2018-01-17] MEDS: MONTELUKAST 10 MG TAB PO SCH (08:24)
--- NOTE | 2018-01-17 10:14 | XR ---
EXAMINATION TYPE: XR knee complete LT , 3 VIEWS DATE OF EXAM ORDERED: 01/17/2018 HISTORY: left knee wound. COMPARISON: Previous study dated 12/31/2017. FINDINGS: There is medial joint space loss. There is mild peaking of intercondylar spines. No fractu re, dislocation or bony destructive lesion is seen. No joint effusion is seen. IMPRESSION: 1. NO ACUTE OSSEOUS LESION. 2. OSTEOARTHRITIS.
--- NOTE | 2018-01-17 10:23 | P.CNOR ---
History of Present Illness - HPI Consult date: 01/17/18 Consult reason: other (Left knee wound) History of present illness: The patient is a pleasant and mildly prevented 87-year-old female who is seen and examined today at bedside in regards to her left knee wound. Patient is a local resident I assisted living facility and she does have baseline of some dementia. Her daughter is at bedside and is able to answer questions. Patient is cooperative and follows commands. The patient followed in regards to her left knee where she had sustained a fall and had been followed outpatient due to some local blistering and soft tissue damage in her knee. It had remained closed until she had a fall yesterday and had unroofing of the wound site. There is some bloody drainage. Apparently there is no pus. They presented to the emergency room. She was found have a urinary tract infection as well. She is given a dose of antibiotics in the emergency room for urinary tract infection and was admitted for further evaluation and management. She denies any fevers or chills. Her daughter says that her knee is actually looking better today than was yesterday. She's not seeming to have any significant increase in her pain. She had been seen in the office with Dr. Rosales on Friday who is continuing some local wound care and monitoring. Review of Systems As per HPI. She denies any nausea and vomiting. She denies any burning on urination. 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 per pt's daughter-pt has a sore in outh from her partial plate.dementia w/ "" History of Any Multi-Drug Resistant Organisms: None Reported Past Surgical History: Hysterectomy, Orthopedic Surgery, Tonsillectomy Additional Past Surgical History / Comment(s): X2 RT hip replacement, cataract Past Anesthesia/Blood Transfusion Reactions: No Reported Reaction Past Psychological History: Anxiety, Depression Additional Psychological History / Comment(s): PT L[facility] AT [facility] SINCE [facility]ARCH. USES A WALKER Smoking Status: Never smoker Past Alcohol Use History: None Reported Past Drug Use History: None Reported - Past Family History Sister(s) Family Medical History: Cancer Additional Family Medical History / Comment(s): BREAST CANCER Father Family Medical History: No Reported History Additional Family Medical History / Comment(s): FROM OLD AGE Medications and Allergies Home Medications Medication Instructions Recorded Confirmed Type Bimatoprost [Lumigan .01% Ophth 1 drop BOTH EYES HS@199911/11/16 01/17/18 History Soln] Sertraline HCl [Zoloft] 100 mg PO DAILY@169911/11/16 01/17/18 History Acetaminophen [Tylenol Extra 500 mg PO Q4HR PRN 04/03/17 01/17/18 History Strength] Albuterol Inhaler [Ventolin Hfa 2 puff INHALATION RT-QID PRN 04/03/17 01/17/18 History Inhaler] Albuterol Nebulized [Ventolin 2.5 mg INHALATION RT-QID PRN 04/03/17 01/16/18 History Nebulized] Clotrimazole/Betameth Cream 1 applic TOPICAL BID PRN 04/03/17 01/17/18 History [Lotrisone] Simvastatin [Zocor] 20 mg PO DAILY@169904/03/17 01/17/18 History predniSONE 5 mg PO DAILY@79904/03/17 01/17/18 History Cranberry Fruit Concentrate 450 mg PO BID@12/31/17 01/17/18 History [Cranberry] Furosemide [Lasix] 40 mg PO DAILY@79912/31/17 01/17/18 History Metoprolol Tartrate [Lopressor] 12.5 mg PO TID@,,12/31/17 01/17/18 History Montelukast [Singulair] 10 mg PO DAILY@79912/31/17 01/17/18 History Vit C/E/Zn/Coppr/Lutein/Zeaxan 1 cap PO BID@12/31/17 01/17/18 History [Preservision Areds 2 Softgel] Ferrous Sulfate [Feosol] 325 mg PO BID #60 tab 01/02/18 01/17/18 Rx Aspirin 325 mg PO DAILY 01/16/18 01/17/18 History Ibuprofen [Motrin Ib] 400 mg PO Q6H PRN 01/16/18 01/17/18 History Smooth Lax 17 g PO DAILY PRN 01/16/18 01/16/18 History Temazepam [Restoril] 15 mg PO HS PRN 01/16/18 01/17/18 History Allergies Allergy/AdvReac Type Severity Reaction Status Date / Time No Known Allergies Allergy Verified 01/16/18 22:53 Physical Examination Osteopathic Statement: *. No significant issues noted on an osteopathic structural exam other than those noted in the History and Physical/Consult. Results - Labs Labs: Abnormal Lab Results - Last 24 Hours (Table) 01/16/18 01/16/18 01/16/18 Range/Units 23:22 23:22 23:22 WBC 12.1 H (3.8-10.6) k/uL RBC 3.76 L (3.80-5.40) m/uL Hgb 11.0 L (11.4-16.0) gm/dL RDW 16.2 H (11.5-15.5) % Neutrophils # 8.9 H (1.3-7.7) k/uL APTT 20.1 L (22.0-30.0) sec BUN 19 H (7-17) mg/dL Urine Appearance (Clear) Urine Protein (Negative) Urine Nitrite (Negative) Ur Leukocyte Esterase (Negative) Urine WBC (0-5) /hpf Ur Squamous Epith Cells (0-4) /hpf Urine Bacteria (None) /hpf Urine Mucus (None) /hpf 01/16/18 Range/Units 23:33 WBC (3.8-10.6) k/uL RBC (3.80-5.40) m/uL Hgb (11.4-16.0) gm/dL RDW (11.5-15.5) % Neutrophils # (1.3-7.7) k/uL APTT (22.0-30.0) sec BUN (7-17) mg/dL Urine Appearance Cloudy H (Clear) Urine Protein Trace H (Negative) Urine Nitrite Positive H (Negative) Ur Leukocyte Esterase Large H (Negative) Urine WBC 34 H (0-5) /hpf Ur Squamous Epith Cells 17 H (0-4) /hpf Urine Bacteria Occasional H (None) /hpf Urine Mucus Rare H (None) /hpf Microbiology - Last 24 Hours (Table) 01/17/18 03:50 Anaerobic Culture - Preliminary Knee - Left 01/17/18 03:50 Wound Culture - Preliminary Knee - Left H & H 01/16/18 Range/Units 23:22 Hgb 11.0 L (11.4-16.0) gm/dL Hct 34.6 (34.0-46.0) % Coagulation 01/16/18 Range/Units 23:22 INR 1.0 (<1.2) Result Diagrams: 01/16/18 23:22 01/16/18 23:22 - Diagnostic results Knee x-ray: image reviewed (Imaging left knee does not show any obvious bony destruction. There is some medial compartment arthritis. There is no evidence of fracture. There is no foreign body) Assessment and Plan Assessment: Left knee open wound, approximately 3 x 4 cm and one centimeters deep through skin and subcu tissue with some unroofing. This is a subacute issue that the patient has been dealing with conservatively and it has unroofed to some degree with some serosanguineous and bloody drainage. There did not appear to be any obvious purulence or infectious process. I think that she should take prophylactic antibiotics and we should get wound care see her for wound care management local wound care for either wet -to-dry dressing or possible whirlpool and management. If it makes some improvement she can continue with conservative treatment with that plan however if it is worsening she may need formal debridement operatively.We will continue to follow her closely. She will continue local wound care. We will consult wound care as well and start her on some IV antibiotics prophylactically. Urinary tract infection, being managed by medical management and antibiotics Dementia with other medical issues being managed by medical service, stable
[2018-01-17] MEDS: AMPICILLIN-SULBACTAM 1.5 GM in SODIUM CHLORIDE 0.9% 50 ML IVPB SCH ×2 (11:18→17:17)
--- NOTE | 2018-01-17 15:10 | P.HPIM ---
History of Present Illness H&P Date: 01/17/18 Desire Green is an 87-year-old female who presented to [facility] emergency room in regards to her left knee wound and having multiple falls at home. Patient is a local resident in an assisted living facility and she does have baseline of dementia. Her daughter is at bedside and is able to answer questions. Patient is cooperative and follows commands. The patient followed in regards to her left knee where she had sustained a fall and had been followed outpatient due to some local blistering and soft tissue damage in her knee. It had remained closed until she had a fall yesterday and had unroofing of the wound site. There is some bloody drainage. She was found have a urinary tract infection as well. She is given a dose of antibiotics in the emergency room for urinary tract infection and was admitted for further evaluation and management. [facility], also infectious disease consultation was requested and patient was seen by Dr. Combs. Also consultation for vascular surgery for possible debridement of the left knee wound was initiated On review of system patient is alert slightly confused in no apparent distress She denies any fever or chills no headache or dizziness no chest pain, she has some shortness of breath no cough no nausea or vomiting no abdominal pain no diarrhea or constipation she is complaining of burning was urination no frequency or urgency. 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 per pt's daughter-pt has a sore in outh from her partial plate.dementia w/ "owners" History of Any Multi-Drug Resistant Organisms: None Reported Past Surgical History: Hysterectomy, Orthopedic Surgery, Tonsillectomy Additional Past Surgical History / Comment(s): X2 RT hip replacement, cataract Past Anesthesia/Blood Transfusion Reactions: No Reported Reaction Past Psychological History: Anxiety, Depression Additional Psychological History / Comment(s): PT LIVES AT [facility] SINCE MARCH. USES A WALKER Smoking Status: Never smoker Past Alcohol Use History: None Reported Past Drug Use History: None Reported - Past Family History Sister(s) Family Medical History: Cancer Additional Family Medical History / Comment(s): BREAST CANCER Father Family Medical History: No Reported History Additional Family Medical History / Comment(s): FROM OLD AGE Medications and Allergies Home Medications Medication Instructions Recorded Confirmed Type Bimatoprost [Lumigan .01% Ophth 1 drop BOTH EYES HS@199911/11/16 01/17/18 History Soln] Sertraline HCl [Zoloft] 100 mg PO DAILY@169911/11/16 01/17/18 History Acetaminophen [Tylenol Extra 500 mg PO Q4HR PRN 04/03/17 01/17/18 History Strength] Albuterol Inhaler [Ventolin Hfa 2 puff INHALATION RT-QID PRN 04/03/17 01/17/18 History Inhaler] Albuterol Nebulized [Ventolin 2.5 mg INHALATION RT-QID PRN 04/03/17 01/16/18 History Nebulized] Clotrimazole/Betameth Cream 1 applic TOPICAL BID PRN 04/03/17 01/17/18 History [Lotrisone] Simvastatin [Zocor] 20 mg PO DAILY@169904/03/17 01/17/18 History predniSONE 5 mg PO DAILY@79904/03/17 01/17/18 History Cranberry Fruit Concentrate 450 mg PO BID@12/31/17 01/17/18 History [Cranberry] Furosemide [Lasix] 40 mg PO DAILY@79912/31/17 01/17/18 History Metoprolol Tartrate [Lopressor] 12.5 mg PO TID@12/31/17 01/17/18 History Montelukast [Singulair] 10 mg PO DAILY@79912/31/17 01/17/18 History Vit C/E/Zn/Coppr/Lutein/Zeaxan 1 cap PO BID@12/31/17 01/17/18 History [Preservision Areds 2 Softgel] Ferrous Sulfate [Feosol] 325 mg PO BID #60 tab 01/02/18 01/17/18 Rx Aspirin 325 mg PO DAILY 01/16/18 01/17/18 History Ibuprofen [Motrin Ib] 400 mg PO Q6H PRN 01/16/18 01/17/18 History Smooth Lax 17 g PO DAILY PRN 01/16/18 01/16/18 History Temazepam [Restoril] 15 mg PO HS PRN 01/16/18 01/17/18 History Allergies Allergy/AdvReac Type Severity Reaction Status Date / Time No Known Allergies Allergy Verified 01/16/18 22:53 Physical Exam Vitals: Vital Signs Temp Pulse Pulse Resp BP BP Pulse Ox 01/17/18 06:42 97.9 F 89 16 141/76 93 L 01/17/18 03:00 97.9 F 89 16 141/76 93 L 01/17/18 01:04 88 16 149/65 94 L 01/16/18 22:31 97.4 F L 84 16 156/73 96 Intake and Output 01/17/18 01/17/18 01/17/18 06:59 14:59 22:59 Intake Total 100 650 Balance 100 650 Intake: Intake, IV Titration 650 Amount Ampicillin-Sulbactam 1.5 50 gm In Sodium Chloride 0.9 % 50 ml @ 100 mls/hr IVPB Q8HR [facility] Rx#:[id number] Sodium Chloride 0.9% 1, 600 000 ml @ 75 mls/hr IV . [id number] [facility] Rx#:[id number] Oral 100 Other: Voiding Method Bedside Commode Diaper Incontinent # Voids 2 # Bowel Movements 2 Weight 66.5 kg In general patient is alert confused in no apparent distress HEENT head normocephalic and atraumatic Neck is supple no JVD no goiter no lymphadenopathy Chest exam reveals a few scattered rhonchi no wheezing Cardiac exam reveals regular heart sounds no gallops no murmurs Abdomen is soft nontender no organomegaly with normal bowel sounds Extremity exam reveals no edema no cyanosis or clubbing, there is a large wound on the left knee area was some unroofing, and bloody discharge. Results CBC & Chem 7: 01/16/18 23:22 01/16/18 23:22 Labs: Abnormal Lab Results - Last 24 Hours (Table) 01/16/18 01/16/18 01/16/18 Range/Units 23:22 23:22 23:22 WBC 12.1 H (3.8-10.6) k/uL RBC 3.76 L (3.80-5.40) m/uL Hgb 11.0 L (11.4-16.0) gm/dL RDW 16.2 H (11.5-15.5) % Neutrophils # 8.9 H (1.3-7.7) k/uL APTT 20.1 L (22.0-30.0) sec BUN 19 H (7-17) mg/dL Urine Appearance (Clear) Urine Protein (Negative) Urine Nitrite (Negative) Ur Leukocyte Esterase (Negative) Urine WBC (0-5) /hpf Ur Squamous Epith Cells (0-4) /hpf Urine Bacteria (None) /hpf Urine Mucus (None) /hpf 01/16/18 Range/Units 23:33 WBC (3.8-10.6) k/uL RBC (3.80-5.40) m/uL Hgb (11.4-16.0) gm/dL RDW (11.5-15.5) % Neutrophils # (1.3-7.7) k/uL APTT (22.0-30.0) sec BUN (7-17) mg/dL Urine Appearance Cloudy H (Clear) Urine Protein Trace H (Negative) Urine Nitrite Positive H (Negative) Ur Leukocyte Esterase Large H (Negative) Urine WBC 34 H (0-5) /hpf Ur Squamous Epith Cells 17 H (0-4) /hpf Urine Bacteria Occasional H (None) /hpf Urine Mucus Rare H (None) /hpf Microbiology - Last 24 Hours (Table) 01/17/18 03:50 Gram Stain - Preliminary Knee - Left Wound Culture - Preliminary 01/17/18 03:50 Anaerobic Culture - Preliminary Knee - Left Thrombosis Risk Factor Assmnt - Choose All That Apply Any of the Below Risk Factors Present?: Yes Each Factor Represents 1 point: Medical pt on bed rest Other Risk Factors: Yes Each Risk Factor Represents 3 Points: Age 75 years or older Thrombosis Risk Factor Assessment Total Risk Factor Score: 4 Thrombosis Risk Factor Assessment Level: Moderate Risk Assessment and Plan Plan: #1 subacute right knee wound worsening after recent fall patient will need debridement of the wound doctor Aniceto was consulted #2 recurrent falls, Will consult physical therapy and occupational therapy #3 shortness of breath will obtain chest x-ray with [facility] and monitor progress #4 underlying history of hypertension #5 underlying history of hyperlipidemia #6 underlying history of asthma maintained on Singulair at home #7 underlying history of depression maintained on Zoloft #8 underlying history of dementia #9 evidence of urinary tract infection on presentation At this time continue was current IV antibiotic awaiting debridement by Dr. Moreland awaiting input from physical therapy and occupational therapy Will further investigate shortness of breath Will follow closely
[2018-01-17] MEDS: SERTRALINE 100 MG TAB PO SCH (17:17)
[2018-01-17] MEDS: ATORVASTATIN 10 MG TAB PO SCH (17:17)
--- NOTE | 2018-01-17 17:22 | XR ---
EXAMINATION TYPE: XR chest 1V portable DATE OF EXAM: 01/17/2018 COMPARISON: 01/01/2018 INDICATION: Short of breath TECHNIQUE: Single frontal view of the chest is obtained. FINDINGS: The heart size is normal. The pulmonary vasculature is normal. There is elevation of the right diaphragm. Some streak opacities in the left midlung likely related t o some atelectasis. IMPRESSION: 1. Streak atelectasis left midlung. 2. Elevated right diaphragm appears chronic
[2018-01-17] MEDS: LATANOPROST 0.005% OPHTH DROPS 2.5 ML BTL BOTH EYES SCH (20:55)
[2018-01-18] MEDS ORDERED: AMPICILLIN-SULBACTAM 3 GM in SODIUM CHLORIDE 0.9% 50 ML IVPB SCH ×2
--- NOTE | 2018-01-18 05:37 | CONS ---
CONSULTATION DATE OF SERVICE: 01/17/2018. REASON FOR CONSULTATION: 1. Left knee wound, possible cellulitis. 2. Urinary tract infection. HISTORY OF PRESENT ILLNESS: The patient is an 87-year-old female who apparently did have a fall about 2 weeks ago with presenting laceration to the left knee area. The patient apparently has been following with Dr. Rosales from the [facility] 8 recurrent and seemed to have improved with local wound care. However, apparently the patient was sitting in the bed last evening. She rolled off the bed and landed on her left knee. No loss of consciousness. The patient noticed to have worsening of the wound to the left knee area. Currently covered with . Hence the patient has been brought to the ER for further evaluation of the same. The patient does have some dull aching pain to the knee area. However, she is unable to quantify any further but not specifically for any fever or chills. She denies no chest pain, no shortness of breath or cough. No abdominal pain or diarrhea. The patient, on arrival to the ER did have a positive UA with large leukocyte esterase with 4 WBC and also has mildly elevated white count. The patient did receive a dose of Rocephin, subsequently has been switched over to Unasyn 1.5 q.8 and Infectious Disease was consulted for further recommendation regarding local wound care as well as antibiotic therapy. The patient is not a very good historian so most of the information has been obtained from review of the chart and talking to the daughter. REVIEW OF SYSTEMS: Positive for weakness. No high-grade fever. Eyes: No complaint. ENT no complaint. Respiratory no complaint. Cardiovascular no complaint. Genitourinary as per HPI. Gastrointestinal: No complaint. Musculoskeletal as per HPI. Integumentary as per HPI. Psychological no complaint. Endocrine no complaint. Neurologic no complaint. PAST MEDICAL HISTORY: Significant for hyperlipidemia and memory impairment, pneumonia, CVA, TIA, dementia, history of glaucoma, shingles, basal-cell carcinoma on the nose. PAST SURGICAL HISTORY: Tonsillectomy, hysterectomy, right hip replacement, cataract surgery and basal cell resections. SOCIAL HISTORY: No history of smoking, drinking or drug use. Currently is a foster care resident. FAMILY HISTORY: Sister with a history of breast cancer. Father from old age. ALLERGIES: No known drug allergies. MEDICATION: Currently include the patient is on Tylenol, DuoNeb and Unasyn 1.5 q.8, Lipitor, iron sulfate, Lasix, Lopressor, Singulair, and Zoloft. EXAMINATION: Blood pressure is 159/64 with a pulse of 92, temperature 98.3. She is 94% on room air. General description is an elderly female lying in bed in no distress. No tachypnea or accessory muscles of respiration use. HEENT: Shows slight pallor. No scleral icterus. Oral mucosal membranes are dry. No pharyngeal erythema or thrush. Neck trachea central, no thyromegaly. LUNGS: Unlabored breathing. Clear to auscultation anteriorly. No wheeze or crackles. Heart S1, S2. Regular rate and rhythm. ABDOMEN: Soft, no tenderness. No guarding or rigidity. EXTREMITIES: No edema of the feet. Examination of the left knee did have a wound with necrotic tissue and some swelling but no significant redness or foul smelling drainage. Neurological: The patient is awake, alert, oriented. Mood and affect normal. LABS: Hemoglobin is 11, white count 12.1. BUN of 19, creatinine 0.77. Urine is cloudy with large leukocyte esterases and 34 WBC. Cultures obtained from the area is currently pending. DIAGNOSTIC IMPRESSION AND PLAN: 1. Patient with left knee wound with necrotic tissue and some swelling but no significant cellulitis with wound. Recommend local wound care. 2. The patient with likely component of urinary tract infection with burning of and elevated white count, likely from enteric gram-negative. PLAN: 1. We will switch over the Unasyn to 3 g q.6h with normal creatinine, GFR. 2. Recommend obtaining a vascular surgery consult for debridement of this wound and deep cultures. 3. We will follow up on clinical condition and further adjust medication if needed. Family was present at bedside. Their questions and concerns were answered. MMODL / IJN: [id number] /
[2018-01-18] MEDS ORDERED: LIDOCAINE 1% INJ 10MG/ML (20 ML MDV) SQ ONE (06:00)
[2018-01-18] MEDS: AMPICILLIN-SULBACTAM 3 GM in SODIUM CHLORIDE 0.9% 100 ML IVPB SCH ×4 (06:31→23:24)
[2018-01-18] MEDS: SODIUM CHLORIDE 0.9% 1,000 ML IV SCH ×2 (06:41→18:04)
[2018-01-18] MEDS: MONTELUKAST 10 MG TAB PO SCH (09:26)
[2018-01-18] MEDS: METOPROLOL TARTRATE 12.5 MG TAB PO SCH ×3 (09:26→21:02)
[2018-01-18] MEDS: FERROUS SULFATE 325 MG TAB PO SCH ×2 (09:26→21:02)
[2018-01-18] MEDS: ACETAMINOPHEN TAB 325 MG TAB PO PRN ×2 (09:26→15:16)
--- NOTE | 2018-01-18 09:49 | P.PN ---
Progress Note - Text Progress Note Date: 01/18/18 Patient is seen and examined today at bedside. she had a bedside wound debridement and her left knee with Dr. Moreland with vascular surgery this morning and tolerated it well. Wound care is also seeing her. She is following commands and alert. Pain is being controlled with medication. Physical Exam Afebrile with stable vital signs Abdomen is soft nontender. Chest has good excursion deep and space expiration The dressing is intact at her left knee. This was just placed within the last hour with Dr. Moreland who did a bedside debridement. I did not take the dressing down Extremities have not had neurologic change from prior to surgery. Calves and thighs were soft nontender without evidence of DVT. Assessment/Plan Left knee complex wound status post bedside debridement per vascular surgery day 0 The patient tolerated the debridement well and will continue with wound care and local wound management as per rescue surgery and wound care infectious disease service. We will continue to increase the patient's mobilization with therapy. We will continue pain control with oral or IV medications. we do not have any further plan for surgical intervention from an orthopedic standpoint
--- NOTE | 2018-01-18 10:27 | P.GSCN ---
History of Present Illness History of present illness: 87-year-old white female, history of fall on the left knee 2 in the past developed hematoma and skin necrosis infrapatellar area left leg patient has been admitted CONSULTED for a relation wound and wound debridement. No history of diabetes hypertension. No history of coronary artery disease On examination neck is supple no bruit appreciated Chest is clear auscultation first and second sound normal Abdomen soft nontender vascular examination femoral pulses are present patient has a wound left infrapatellar area and left leg 3 x 3 cm with skin necrosis Plan is a wound debridement Past Medical History Past Medical History: Cancer, CVA/TIA, Dementia, GERD/Reflux, Hyperlipidemia, Memory Impairment, Pneumonia Additional Past Medical History / Comment(s): GLAUCOMA, VERTIGO,HAYFEVER, SHINGLES 5 YEARS AGO, VARICOSE VEINS,WEARS A BRIEF "JUST IN CASE",SCOLIOSIS, DJD , UTI,BASAL CELL SKIN CA ON NOSE. per pt's daughter-pt has a sore in outh from her partial plate.dementia w/ "sundowners" History of Any Multi-Drug Resistant Organisms: None Reported Past Surgical History: Hysterectomy, Orthopedic Surgery, Tonsillectomy Additional Past Surgical History / Comment(s): X2 RT hip replacement, cataract Past Anesthesia/Blood Transfusion Reactions: No Reported Reaction Past Psychological History: Anxiety, Depression Additional Psychological History / Comment(s): PT [facility]IVES AT [facility]IN[facility]. USES A WALKER Smoking Status: Never smoker Past Alcohol Use History: None Reported Past Drug Use History: None Reported - Past Family History Sister(s) Family Medical History: Cancer Additional Family Medical History / Comment(s): BREAST CANCER Father Family Medical History: No Reported History Additional Family Medical History / Comment(s): FROM OLD AGE Medications and Allergies Home Medications Medication Instructions Recorded Confirmed Type Bimatoprost [Lumigan .01% Ophth 1 drop BOTH EYES HS@199911/11/16 01/17/18 History Soln] Sertraline HCl [Zoloft] 100 mg PO DAILY@169911/11/16 01/17/18 History Acetaminophen [Tylenol Extra 500 mg PO Q4HR PRN 04/03/17 01/17/18 History Strength] Albuterol Inhaler [Ventolin Hfa 2 puff INHALATION RT-QID PRN 04/03/17 01/17/18 History Inhaler] Albuterol Nebulized [Ventolin 2.5 mg INHALATION RT-QID PRN 04/03/17 01/16/18 History Nebulized] Clotrimazole/Betameth Cream 1 applic TOPICAL BID PRN 04/03/17 01/17/18 History [Lotrisone] Simvastatin [Zocor] 20 mg PO DAILY@1700 04/03/17 01/17/18 History predniSONE 5 mg PO DAILY@0800 04/03/17 01/17/18 History Cranberry Fruit Concentrate 450 mg PO BID@,12/31/17 01/17/18 History [Cranberry] Furosemide [Lasix] 40 mg PO DAILY@0812/31/17 01/17/18 History Metoprolol Tartrate [Lopressor] 12.5 mg PO TID@,,12/31/17 01/17/18 History Montelukast [Singulair] 10 mg PO DAILY@0800 12/31/17 01/17/18 History Vit C/E/Zn/Coppr/Lutein/Zeaxan 1 cap PO BID@,12/31/17 01/17/18 History [Preservision Areds 2 Softgel] Ferrous Sulfate [Feosol] 325 mg PO BID #60 tab 01/02/18 01/17/18 Rx Aspirin 325 mg PO DAILY 01/16/18 01/17/18 History Ibuprofen [Motrin Ib] 400 mg PO Q6H PRN 01/16/18 01/17/18 History Smooth Lax 17 g PO DAILY PRN 01/16/18 01/16/18 History Temazepam [Restoril] 15 mg PO HS PRN 01/16/18 01/17/18 History Allergies Allergy/AdvReac Type Severity Reaction Status Date / Time No Known Allergies Allergy Verified 01/16/18 22:53 Surgical - Exam Vital Signs Temp Pulse Resp BP Pulse Ox 97.4 F L 84 16 156/73 96 01/16/18 22:31 01/16/18 22:31 01/16/18 22:31 01/16/18 22:31 01/16/18 22:31 Results - Labs 01/16/18 23:22 01/16/18 23:22 Microbiology - Last 24 Hours (Table) 01/17/18 03:50 Gram Stain - Preliminary Knee - Left Wound Culture - Preliminary Yeast species 01/17/18 03:50 Anaerobic Culture - Preliminary Knee - Left
--- NOTE | 2018-01-18 10:28 | P.WCSRGD ---
Wound Ctr Surgical Debridement Procedure note wound left left knee area 3 x 3 cm with the skin necrosis Debridement of the wound down to separate his tissue 1% lidocaine for infected using knife we excised the necrotic skin down to separate his tissue there were some clots seen under the skin which was removed also there was tunneling noted at 3 o'clock position we removed all the clots and skin necrosis and removed down to separate his tissue no active bleeding was noted wound was irrigated with saline and excess silver applied to the wound dressing applied patient tolerated the procedure well
--- NOTE | 2018-01-18 11:17 | P.PN ---
Subjective Progress Note Date: 01/18/18 Desire Green is an 87-year-old female who presented to [facility] emergency room in regards to her left knee wound and having multiple falls at home. Patient is a local resident in an assisted living facility and she does have baseline of dementia. Her daughter is at bedside and is able to answer questions. Patient is cooperative and follows commands. The patient followed in regards to her left knee where she had sustained a fall and had been followed outpatient due to some local blistering and soft tissue damage in her knee. It had remained closed until she had a fall yesterday and had unroofing of the wound site. There is some bloody drainage. She was found have a urinary tract infection as well. She is given a dose of antibiotics in the emergency room for urinary tract infection and was admitted for further evaluation and management. [facility], also infectious disease consultation was requested and patient was seen by Dr. Combs. Also consultation for vascular surgery for possible debridement of the left knee wound was initiated On 01/18/2018 patient was seen and examined on the fourth floor she is alert confused in no apparent distress DrKalpesh is at bedside patient denies any pain or discomfort, patient underwent debridement of the left knee wound yesterday by Dr. Moreland, she is maintained on IV antibiotic and local care at this time. Yesterday patient complained of shortness of breath, chest x-ray was done and revealed mild atelectasis otherwise no acute abnormality. She will be started on incentive spirometry, she is also receiving DuoNeb updrafts. Objective - Vital Signs Vital signs: Vital Signs Temp 98.2 F 01/18/18 06:18 Pulse 89 01/18/18 06:18 Resp 17 01/18/18 06:18 BP 172/82 01/18/18 06:18 Pulse Ox 92 L 01/18/18 06:18 Intake & Output 01/17/18 01/18/18 01/18/18 18:59 06:59 18:59 Intake Total 1250 Balance 1250 Intake: Intake, IV Titration 650 Amount Ampicillin-Sulbactam 1.5 50 gm In Sodium Chloride 0.9 % 50 ml @ 100 mls/hr IVPB Q8HR [facility] Rx#:[id number] Sodium Chloride 0.9% 1, 600 000 ml @ 75 mls/hr IV . [id number] [facility] Rx#:[id number] Oral 600 Other: Voiding Method Bedpan Bedside Commode Diaper Diaper Incontinent Incontinent # Voids 2 2 2 # Bowel Movements 2 1 - Exam In general patient is alert confused in no apparent distress HEENT head normocephalic and atraumatic Neck is supple no JVD no goiter no lymphadenopathy Chest exam reveals a few scattered rhonchi no wheezing Cardiac exam reveals regular heart sounds no gallops no murmurs Abdomen is soft nontender no organomegaly with normal bowel sounds Extremity exam reveals no edema no cyanosis or clubbing, there is a large wound on the left knee area was some unroofing, and bloody discharge. - Labs CBC & Chem 7: 01/16/18 23:22 01/16/18 23:22 Labs: Microbiology - Last 24 Hours (Table) 01/17/18 03:50 Gram Stain - Preliminary Knee - Left Wound Culture - Preliminary Yeast species 01/17/18 03:50 Anaerobic Culture - Preliminary Knee - Left Assessment and Plan Plan: #1 subacute right knee wound worsening after recent fall patient will need debridement of the wound doctor Aniceto was consulted #2 recurrent falls, Will consult physical therapy and occupational therapy #3 shortness of breath will obtain chest [facility] and [facility] #4 underlying history of hypertension #5 underlying history of hyperlipidemia #6 underlying history of asthma maintained on Singulair at home #7 underlying history of depression maintained on Zoloft #8 underlying history of dementia #9 evidence of urinary tract infection on presentation At this time continue was current IV antibiotic awaiting debridement by Dr. Moreland awaiting input from physical therapy and occupational therapy Will follow closely
[2018-01-18] MEDS: FUROSEMIDE 40 MG TAB PO SCH (11:26)
[2018-01-18] MEDS: ENOXAPARIN 40 MG/0.4 ML SYRINGE SQ SCH (14:02)
[2018-01-18] MEDS: SERTRALINE 100 MG TAB PO SCH (17:39)
[2018-01-18] MEDS: ATORVASTATIN 10 MG TAB PO SCH (17:39)
[2018-01-18] MEDS: LATANOPROST 0.005% OPHTH DROPS 2.5 ML BTL BOTH EYES SCH (21:02)
--- NOTE | 2018-01-18 21:38 | PN ---
PROGRESS NOTE DATE OF SERVICE: 01/18/2018. REASON FOR FOLLOWUP: 1. Left knee wound. 2. UTI. INTERVAL HISTORY: The patient is afebrile. The patient did have surgical debridement of the wound at the bedside by Dr. Moreland with possible re-debridement tomorrow. The patient denies having any chest pain, shortness of breath, cough, abdominal pain. to the left knee area. PHYSICAL EXAMINATION: Blood pressure 133/58 with a pulse of 92, temperature 98.5. She is 94% on room air. General description is an elderly female lying in bed in no distress. Respiratory system: Unlabored breathing. Clear to auscultation anteriorly. Heart S1, S2. Regular rate and rhythm. LABS: No new labs have been obtained today. Urine cultures currently pending. DIAGNOSTIC IMPRESSION AND PLAN: 1. Patient with left knee wound, traumatic with no significant cellulitis. Culture showing yeast, more likely colonized. Continue local wound care with multiple vascular surgery for possible further debridement. 2. Patient with a positive UA underlying urinary tract infection, currently covered with the Unasyn. Will wait for the culture to finalize. Continue supportive care. MMODL / IJN: [id number] /
[2018-01-19] MEDS: AMPICILLIN-SULBACTAM 3 GM in SODIUM CHLORIDE 0.9% 100 ML IVPB SCH ×4 (05:53→23:08)
[2018-01-19] MEDS: ENOXAPARIN 40 MG/0.4 ML SYRINGE SQ SCH (09:20)
[2018-01-19] MEDS: METOPROLOL TARTRATE 12.5 MG TAB PO SCH ×3 (09:20→20:01)
[2018-01-19] MEDS: FUROSEMIDE 40 MG TAB PO SCH (09:21)
[2018-01-19] MEDS: MONTELUKAST 10 MG TAB PO SCH (09:21)
[2018-01-19] MEDS: FERROUS SULFATE 325 MG TAB PO SCH ×2 (09:21→20:02)
[2018-01-19] MEDS: ACETAMINOPHEN TAB 325 MG TAB PO PRN ×3 (09:28→23:08)
[2018-01-19 10:21] LABS: Albumin 3.1 g/dL (3.5-5.0); Chloride 105 mmol/L (98-107); Glucose 104 mg/dL (74-99); Potassium 3.3 mmol/L (3.5-5.1); Sodium 141 mmol/L (137-145)
[2018-01-19 10:23] LABS: ALT 22 U/L (9-52); AST 21 U/L (14-36); Alkaline Phosphatase 91 U/L (38-126); Anion Gap 9 mmol/L; Blood Urea Nitrogen 11 mg/dL (7-17); Calcium 8.8 mg/dL (8.4-10.2); Carbon Dioxide 27 mmol/L (22-30); Total Bilirubin 0.7 mg/dL (0.2-1.3)
[2018-01-19] MEDS ORDERED: TEMAZEPAM 15 MG CAP PO PRN (10:24)
[2018-01-19] MEDS ORDERED: Potassium Replacement Protocol 1 EACH MISC MISCELLANE PRN (10:32)
--- NOTE | 2018-01-19 10:38 | P.PN ---
Subjective Progress Note Date: 01/19/18 Desire Green is an 87-year-old female who presented to [facility] emergency room in regards to her left knee wound and having multiple falls at home. Patient is a local resident in an assisted living facility and she does have baseline of dementia. Her daughter is at bedside and is able to answer questions. Patient is cooperative and follows commands. The patient followed in regards to her left knee where she had sustained a fall and had been followed outpatient due to some local blistering and soft tissue damage in her knee. It had remained closed until she had a fall yesterday and had unroofing of the wound site. There is some bloody drainage. She was found have a urinary tract infection as well. She is given a dose of antibiotics in the emergency room for urinary tract infection and was admitted for further evaluation and management. [facility], also infectious disease consultation was requested and patient was seen by Dr. Combs. Also consultation for vascular surgery for possible debridement of the left knee wound was initiated On 01/18/2018 patient was seen and examined on the fourth floor she is alert confused in no apparent distress DrKalpesh is at bedside patient denies any pain or discomfort, patient underwent debridement of the left knee wound yesterday by Dr. Moreland, she is maintained on IV antibiotic and local care at this time. Yesterday patient complained of shortness of breath, chest x-ray was done and revealed mild atelectasis otherwise no acute abnormality. She will be started on incentive spirometry, she is also receiving DuoNeb updrafts. On 01/19/2018 patient is seen resting comfortably in bed. Daughter currently at bedside. Awaiting Dr. Moreland's recommendation for further treatment in regards to debridement. Discussed discharge planning with the daughter. Will consult social work and case management. Patient may require rehab if wound VAC and IV antibiotics are needed. Patient does currently reside at an assisted living facility. At this time patient denies chest pain or shortness of breath. Patient denies nausea vomiting or diarrhea. Patient denies any urinary burning or frequency. Objective - Vital Signs Vital signs: Vital Signs Temp 99.5 F 01/19/18 06:27 Pulse 88 01/19/18 06:27 Resp 20 01/19/18 06:27 BP 150/82 01/19/18 06:27 Pulse Ox 99 01/19/18 06:27 Intake & Output 01/18/18 01/19/18 01/19/18 18:59 06:59 18:59 Intake Total 1500 300 Balance 1500 300 Intake: Intake, IV Titration 900 Amount Ampicillin-Sulbactam 3 gm 100 In Sodium Chloride 0.9% 100 ml @ 200 mls/hr IVPB Q6HR [facility] Rx#:[id number] Sodium Chloride 0.9% 1, 800 000 ml @ 75 mls/hr IV . [id number] [facility] Rx#:[id number] Oral 600 300 Other: Voiding Method Bedside Commode Diaper Incontinent # Voids 3 1 # Bowel Movements 1 1 - Exam Head normocephalic Neck supple Lungs expiratory wheezes bilateral Heart regular rate and rhythm S1-S2, no rub or gallop Abdomen is soft nontender nondistended positive bowel sounds no hepatosplenomegaly Extremities no edema. there is a large wound on the left knee area was some unroofing, and bloody discharge. - Labs CBC & Chem 7: 01/16/18 23:22 01/19/18 09:41 Labs: Abnormal Lab Results - Last 24 Hours (Table) 01/19/18 Range/Units 09:41 Potassium 3.3 L (3.5-5.1) mmol/L Glucose 104 H (74-99) mg/dL Total Protein 6.0 L (6.3-8.2) g/dL Albumin 3.1 L (3.5-5.0) g/dL Microbiology - Last 24 Hours (Table) 01/17/18 03:50 Gram Stain - Preliminary Knee - Left Wound Culture - Preliminary Yeast species Assessment and Plan Assessment: #1 subacute right knee wound worsening after recent fall patient will need debridement of the wound doctor . Debridement of wound on 01/[address] Moreland. Possible additional wound debridement today we'll await vascular surgery's recommendation. Wound culture positive for yeast species. Dr. Combs following for infectious disease #2 recurrent falls, Will consult physical therapy and occupational therapy #3 shortness of breath will obtain chest x-ray with order DuoNeb updrafts and monitor progress. Chest x-ray completed showing streak atelectasis left midlung. Elevated right diaphragm appears chronic. Incentive spirometer encouraged and updrafts ordered. #4 underlying history of hypertension #5 underlying history of hyperlipidemia #6 underlying history of asthma maintained on Singulair at home #7 underlying history of depression maintained on Zoloft #8 underlying history of dementia #9 evidence of urinary tract infection on presentation. She currently on Unasyn. Urine culture has been ordered #10 hypokalemia. Potassium 3.3. Replace per protocol DVT prophylaxis Lovenox. GI prophylaxis Pepcid Patient currently resides at assisted living facility. Patient may possibly need wound VAC and or IV antibiotics. Social work and case management has been consulted. Per daughter, patient may require rehab I performed an examination of the patient and discussed their management with the Nurse Practitioner. I have reviewed the Nurse Practitioner's notes and agree with the documented findings and plan of care
--- NOTE | 2018-01-19 11:00 | P.CNOR ---
History of Present Illness - HPI Consult date: 01/19/18 Consult reason: other (wound left knee) History of present illness: 87 year old female with a history of a wound to the anterior aspect of her left knee. we've been following her for the past couple of weeks. She reportedly fell again and presented to the emergency department yesterday. She had a bedside debridment by Dr. Moreland yesterday and she has been seen by infectious disease. We were consulted for orthopedic evaluation. 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 per pt's daughter-pt has a sore in outh from her partial plate.dementia w/ "" History of Any Multi-Drug Resistant Organisms: None Reported Past Surgical History: Hysterectomy, Orthopedic Surgery, Tonsillectomy Additional Past Surgical History / Comment(s): X2 RT hip replacement, cataract Past Anesthesia/Blood Transfusion Reactions: No Reported Reaction Past Psychological History: Anxiety, Depression Additional Psychological History / Comment(s): PT [facility] SINCE MARCH. USES A WALKER Smoking Status: Never smoker Past Alcohol Use History: None Reported Past Drug Use History: None Reported - Past Family History Sister(s) Family Medical History: Cancer Additional Family Medical History / Comment(s): BREAST CANCER Father Family Medical History: No Reported History Additional Family Medical History / Comment(s): FROM OLD AGE Medications and Allergies Home Medications Medication Instructions Recorded Confirmed Type Bimatoprost [Lumigan .01% Ophth 1 drop BOTH EYES HS@199911/11/16 01/17/18 History Soln] Sertraline HCl [Zoloft] 100 mg PO DAILY@169911/11/16 01/17/18 History Acetaminophen [Tylenol Extra 500 mg PO Q4HR PRN 04/03/17 01/17/18 History Strength] Albuterol Inhaler [Ventolin Hfa 2 puff INHALATION RT-QID PRN 04/03/17 01/17/18 History Inhaler] Albuterol Nebulized [Ventolin 2.5 mg INHALATION RT-QID PRN 04/03/17 01/16/18 History Nebulized] Clotrimazole/Betameth Cream 1 applic TOPICAL BID PRN 04/03/17 01/17/18 History [Lotrisone] Simvastatin [Zocor] 20 mg PO DAILY@1700 04/03/17 01/17/18 History predniSONE 5 mg PO DAILY@0800 04/03/17 01/17/18 History Cranberry Fruit Concentrate 450 mg PO BID@,12/31/17 01/17/18 History [Cranberry] Furosemide [Lasix] 40 mg PO DAILY@0812/31/17 01/17/18 History Metoprolol Tartrate [Lopressor] 12.5 mg PO TID@,,12/31/17 01/17/18 History Montelukast [Singulair] 10 mg PO DAILY@0800 12/31/17 01/17/18 History Vit C/E/Zn/Coppr/Lutein/Zeaxan 1 cap PO BID@12/31/17 01/17/18 History [Preservision Areds 2 Softgel] Ferrous Sulfate [Feosol] 325 mg PO BID #60 tab 01/02/18 01/17/18 Rx Aspirin 325 mg PO DAILY 01/16/18 01/17/18 History Ibuprofen [Motrin Ib] 400 mg PO Q6H PRN 01/16/18 01/17/18 History Smooth Lax 17 g PO DAILY PRN 01/16/18 01/16/18 History Temazepam [Restoril] 15 mg PO HS PRN 01/16/18 01/17/18 History Allergies Allergy/AdvReac Type Severity Reaction Status Date / Time No Known Allergies Allergy Verified 01/16/18 22:53 Physical Examination 87 year old female with mild confusion. Her family is present at bedside. She is alert but confused. The dressing on the knee was removed for exam. There was packing in place in the wound, which was not removed for exam. No erythema, increase warmth, or tenderness around the wound site. She is able to elevate her left leg independently. Neurovascular status in intact. Results xrays of the left knee reveal mild to moderate arthritic changes, no acute fractures noted, no osteolysis noted. - Labs Labs: Abnormal Lab Results - Last 24 Hours (Table) 01/19/18 Range/Units 09:41 Potassium 3.3 L (3.5-5.1) mmol/L Glucose 104 H (74-99) mg/dL Total Protein 6.0 L (6.3-8.2) g/dL Albumin 3.1 L (3.5-5.0) g/dL Microbiology - Last 24 Hours (Table) 01/17/18 03:50 Gram Stain - Preliminary Knee - Left Wound Culture - Preliminary Yeast species H & H 01/16/18 Range/Units 23:22 Hgb 11.0 L (11.4-16.0) gm/dL Hct 34.6 (34.0-46.0) % Coagulation 01/16/18 Range/Units 23:22 INR 1.0 (<1.2) Result Diagrams: 01/16/18 23:22 01/19/18 09:41 Assessment and Plan (1) Open wound of left knee Current Visit: Yes Status: Acute Code(s): S81.002A - UNSPECIFIED OPEN WOUND , LEFT KNEE, INITIAL ENCOUNTER SNOMED Code(s): 307099143 (2) Urinary tract infection Current Visit: Yes Status: Acute Code(s): N39.0 - URINARY TRACT INFECTION, SITE NOT SPECIFIED SNOMED Code(s): 20319252 (3) Dementia Current Visit: No Status: Acute Code(s): F03.90 - UNSPECIFIED DEMENTIA WITHOUT BEHAVIORAL DISTURBANCE SNOMED Code(s): 37751514 Plan: The clinical findings are discussed with the patient and her family. We will discuss case with Dr. Moreland. Infectious disease is following the patient as well. Patient is status post debridment and has no need for orthopedic surgical intervention at this time.
[2018-01-19 11:13] LABS: Basophils % (A) 0 %; Eosinophils # (A) 0.1 k/uL (0-0.7); Eosinophils % (A) 1 %; HCT 31.9 % (34.0-46.0); HGB 10.2 gm/dL (11.4-16.0); Hypochromasia Slight; Lymphocytes # (A) 1.6 k/uL (1.0-4.8); Lymphocytes % (A) 14 %; MCH 29.2 pg (25.0-35.0); MCV 91.4 fL (80.0-100.0); Mean Platelet Volume 7.3; Monocytes # (A) 0.5 k/uL (0-1.0); Monocytes % (A) 5 %; Neutrophils # (A) 9.1 k/uL (1.3-7.7); Neutrophils % (A) 79 %; Platelet Count 403 k/uL (150-450); RBC 3.49 m/uL (3.80-5.40); RDW 15.5 % (11.5-15.5); WBC 11.5 k/uL (3.8-10.6)
[2018-01-19] MEDS: POTASSIUM CHLORIDE ER 20 MEQ TAB.ER PO SCH ×2 (11:30→12:23)
[2018-01-19] MEDS: SODIUM CHLORIDE 0.9% 1,000 ML IV SCH ×2 (12:16→20:02)
--- NOTE | 2018-01-19 13:01 | PN ---
PROGRESS NOTE DATE OF SERVICE: 01/19/2018 REASON FOR FOLLOWUP: 1. Left knee wound. 2. UTI. INTERVAL HISTORY: The patient is currently afebrile. She is complaining of some pain to the left knee area, which has been controlled with pain medication. Denies having any chest pain, shortness of breath. No cough, no abdominal pain, or any diarrhea. PHYSICAL EXAMINATION: Blood pressure 153/82 with a pulse of 88, temperature 99.5, she is 99% on 2 L nasal cannula. General description is an elderly female, lying in bed in no distress. RESPIRATORY SYSTEM: Unlabored breathing, clear to auscultation anteriorly. HEART: S1, S2. Regular rate and rhythm. ABDOMEN: Soft, no tenderness. Left knee wound looks currently clean with minimal necrotic tissue at the base. No sign of surrounding erythema, no foul smelling drainage. LABS: Hemoglobin 10.8, white count 11.5 with a BUN of 11, creatinine 0.62. Unfortunately, no urine cultures were done though the left knee culture showing yeast is more likely colonized. DIAGNOSTIC IMPRESSION AND PLAN: 1. Patient with left knee wound, traumatic, status post mild debridement. No evidence of any cellulitis, continue local wound care as per Vascular Surgery. She would benefit from a wound VAC. 2. Patient with a urinary tract infection with a positive UA. Unfortunately, no urine cultures were done. Urine culture has been ordered today. Will keep the patient on Unasyn, adjusting it further based on the culture report. Continue supportive care. MMODL / IJN: [id number] /
--- NOTE | 2018-01-19 13:16 | PN ---
PROGRESS NOTE This is a 87-year-old pleasant female. She had a left knee wound debridement yesterday. The patient is doing well under care of Infectious Disease. Today we have changed the dressing using Aquacel silver to the wound. PLAN: We will arrange for VAC therapy and patient will go home or extended care. I will follow in the wound clinic next Friday. Continue with local wound care and we will arrange for the VAC therapy. MMODL / IJN: [id number] /
[2018-01-19] MEDS: SERTRALINE 100 MG TAB PO SCH (17:00)
[2018-01-19] MEDS: ATORVASTATIN 10 MG TAB PO SCH (17:00)
[2018-01-19] MEDS: LATANOPROST 0.005% OPHTH DROPS 2.5 ML BTL BOTH EYES SCH (20:03)
[2018-01-20] MEDS: AMPICILLIN-SULBACTAM 3 GM in SODIUM CHLORIDE 0.9% 100 ML IVPB SCH ×4 (06:13→23:05)
[2018-01-20] MEDS: FERROUS SULFATE 325 MG TAB PO SCH ×2 (08:19→20:51)
[2018-01-20] MEDS: FAMOTIDINE 20 MG TAB PO SCH (08:19)
[2018-01-20] MEDS: ENOXAPARIN 40 MG/0.4 ML SYRINGE SQ SCH (08:19)
[2018-01-20] MEDS: predniSONE 5 MG TAB PO SCH (08:19)
[2018-01-20] MEDS: MONTELUKAST 10 MG TAB PO SCH (08:19)
[2018-01-20] MEDS: METOPROLOL TARTRATE 12.5 MG TAB PO SCH ×3 (08:19→20:51)
[2018-01-20] MEDS: FUROSEMIDE 40 MG TAB PO SCH (08:19)
[2018-01-20] MEDS: IPRATROPIUM-ALBUTEROL 3 ML NEB INHALATION PRN ×2 (08:29→15:33)
[2018-01-20] MEDS: ACETAMINOPHEN TAB 325 MG TAB PO PRN ×2 (08:41→21:52)
[2018-01-20] MEDS ORDERED: MORPHINE SULFATE 4 MG/ML SYRINGE IVP PRN (09:34)
--- NOTE | 2018-01-20 09:43 | P.PN ---
Subjective Progress Note Date: 01/20/18 Desire Green is an 87-year-old female who presented to [facility] emergency room in regards to her left knee wound and having multiple falls at home. Patient is a local resident in an assisted living facility and she does have baseline of dementia. Her daughter is at bedside and is able to answer questions. Patient is cooperative and follows commands. The patient followed in regards to her left knee where she had sustained a fall and had been followed outpatient due to some local blistering and soft tissue damage in her knee. It had remained closed until she had a fall yesterday and had unroofing of the wound site. There is some bloody drainage. She was found have a urinary tract infection as well. She is given a dose of antibiotics in the emergency room for urinary tract infection and was admitted for further evaluation and management. [facility], also infectious disease consultation was requested and patient was seen by Dr. Combs. Also consultation for vascular surgery for possible debridement of the left knee wound was initiated On 01/18/2018 patient was seen and examined on the fourth floor she is alert confused in no apparent distress DrKalpesh is at bedside patient denies any pain or discomfort, patient underwent debridement of the left knee wound yesterday by Dr. Moreland, she is maintained on IV antibiotic and local care at this time. Yesterday patient complained of shortness of breath, chest x-ray was done and revealed mild atelectasis otherwise no acute abnormality. She will be started on incentive spirometry, she is also receiving DuoNeb updrafts. On 01/19/2018 patient is seen resting comfortably in bed. Daughter currently at bedside. Awaiting Dr. Moreland's recommendation for further treatment in regards to debridement. Discussed discharge planning with the daughter. Will consult social work and case management. Patient may require rehab if wound VAC and IV antibiotics are needed. Patient does currently reside at an assisted living facility. At this time patient denies chest pain or shortness of breath. Patient denies nausea vomiting or diarrhea. Patient denies any urinary burning or frequency. On 01/20/2018 patient currently resting comfortably in bed. Patient's blood pressure remains elevated. Lisinopril has been added. Patient to get wound VAC application to day. Family agreeable to ECF placement. Case management consulted.. At this time patient denies chest pain or shortness of breath. Patient denies any urinary burning or frequency. Patient denies nausea vomiting or diarrhea Objective - Vital Signs Vital signs: Vital Signs Temp 98.2 F 01/20/18 06:36 Pulse 76 01/20/18 08:43 Resp 18 01/20/18 06:36 BP 174/93 01/20/18 06:36 Pulse Ox 95 01/20/18 06:36 Intake & Output 01/19/18 01/20/18 01/20/18 18:59 06:59 18:59 Intake Total 200 Output Total 351 Balance -151 Weight 66.5 kg Intake: Intake, IV Titration 200 Amount Ampicillin-Sulbactam 3 gm 200 In Sodium Chloride 0.9% 100 ml @ 200 mls/hr IVPB Q6HR [facility] Rx#:[id number] Output: Urine 350 Urine/Stool Mix 1 Other: Voiding Method Bedside Commode Bedside Commode Diaper Diaper Incontinent # Voids 2 2 # Bowel Movements 1 2 - Exam Head normocephalic Neck supple Lungs expiratory wheezes bilateral Heart regular rate and rhythm S1-S2, no rub or gallop Abdomen is soft nontender nondistended positive bowel sounds no hepatosplenomegaly Extremities no edema. there is a large wound on the left knee area was some unroofing, and bloody discharge. - Labs CBC & Chem 7: 01/19/18 09:41 01/19/18 09:41 Labs: Abnormal Lab Results - Last 24 Hours (Table) 01/19/18 01/19/18 Range/Units 09:41 09:41 WBC 11.5 H (3.8-10.6) k/uL RBC 3.49 L (3.80-5.40) m/uL Hgb 10.2 L (11.4-16.0) gm/dL Hct 31.9 L (34.0-46.0) % Neutrophils # 9.1 H (1.3-7.7) k/uL Potassium 3.3 L (3.5-5.1) mmol/L Glucose 104 H (74-99) mg/dL Total Protein 6.0 L (6.3-8.2) g/dL Albumin 3.1 L (3.5-5.0) g/dL Microbiology - Last 24 Hours (Table) 01/19/18 17:44 Urine Culture - Preliminary Urine,Clean Catch 01/17/18 03:50 Gram Stain - Final Knee - Left Wound Culture - Final Renata sp,not albicans/galbr 01/17/18 03:50 Anaerobic Culture - Preliminary Knee - Left Assessment and Plan Assessment: #1 subacute right knee wound worsening after recent fall patient will need debridement of the wound doctor . Debridement of wound on 01/[address] Moreland. Possible additional wound debridement today we'll await vascular surgery's recommendation. Wound culture positive for yeast species. Dr. Combs following for infectious disease. wound vac to be applied today #2 recurrent falls, Will consult physical therapy and occupational therapy #3 shortness of breath will obtain chest x-ray with order DuoNeb updrafts and monitor progress. Chest x-ray completed showing streak atelectasis left midlung. Elevated right diaphragm appears chronic. Incentive spirometer encouraged and updrafts ordered. [facility] home dose of prednisone continue #4 underlying history of hypertension. Patient still having elevated blood pressures. Lisinopril 10 mg daily added #5 underlying history of hyperlipidemia #6 underlying history of asthma maintained on Singulair at home #7 underlying history of depression maintained on Zoloft #8 underlying history of dementia #9 evidence of urinary tract infection on presentation. patient currently on Unasyn. Urine culture has been ordered #10 hypokalemia. Potassium 3.3. Replace per protocol DVT prophylaxis Lovenox. GI prophylaxis Pepcid Patient currently resides at assisted living facility. Patient may possibly need wound VAC and or IV antibiotics. Social work and case management has been consulted. Per daughter, patient may require rehab I performed an examination of the patient and discussed their management with the Nurse Practitioner. I have reviewed the Nurse Practitioner's notes and agree with the documented findings and plan of care
[2018-01-20 09:44] LABS: ALT 23 U/L (9-52); AST 24 U/L (14-36); Albumin 3.2 g/dL (3.5-5.0); Alkaline Phosphatase 99 U/L (38-126); Anion Gap 10 mmol/L; Blood Urea Nitrogen 11 mg/dL (7-17); Calcium 8.6 mg/dL (8.4-10.2); Carbon Dioxide 24 mmol/L (22-30); Chloride 106 mmol/L (98-107); Glucose 111 mg/dL (74-99); Potassium 3.4 mmol/L (3.5-5.1); Sodium 140 mmol/L (137-145); Total Bilirubin 0.7 mg/dL (0.2-1.3); Total Protein 6.3 g/dL (6.3-8.2)
[2018-01-20 09:50] LABS: Basophils % (A) 0 %; Eosinophils # (A) 0.1 k/uL (0-0.7); Eosinophils % (A) 1 %; HGB 10.2 gm/dL (11.4-16.0); Hypochromasia Slight; Lymphocytes % (A) 14 %; MCH 28.8 pg (25.0-35.0); MCHC 31.8 g/dL (31.0-37.0); MCV 90.4 fL (80.0-100.0); Mean Platelet Volume 7.3; Monocytes # (A) 0.5 k/uL (0-1.0); Monocytes % (A) 3 %; Neutrophils # (A) 12.1 k/uL (1.3-7.7); Neutrophils % (A) 81 %; Platelet Count 405 k/uL (150-450); RBC 3.55 m/uL (3.80-5.40); RDW 15.8 % (11.5-15.5); WBC 14.9 k/uL (3.8-10.6)
[2018-01-20] MEDS ORDERED: Potassium Replacement Protocol 1 EACH MISC MISCELLANE PRN (10:44)
[2018-01-20] MEDS: LISINOPRIL 10 MG TAB PO SCH (10:48)
[2018-01-20] MEDS: POTASSIUM CHLORIDE ER 20 MEQ TAB.ER PO SCH ×2 (10:50→11:39)
[2018-01-20] MEDS: SERTRALINE 100 MG TAB PO SCH (17:00)
[2018-01-20] MEDS: ATORVASTATIN 10 MG TAB PO SCH (17:00)
[2018-01-20] MEDS: SODIUM CHLORIDE 0.9% 1,000 ML IV SCH (20:52)
[2018-01-20] MEDS: LATANOPROST 0.005% OPHTH DROPS 2.5 ML BTL BOTH EYES SCH (20:52)
--- NOTE | 2018-01-20 22:20 | PN ---
PROGRESS NOTE DATE OF SERVICE: 01/20/2018. REASON FOR FOLLOWUP: 1. Left knee wound. 2. UTI. INTERVAL HISTORY: The patient is currently afebrile. She is breathing comfortably. Denies having any chest pain, shortness of breath, cough, abdominal pain, or any worsening pain to the left knee area and no diarrhea. EXAMINATION: Blood pressure 143/67 with a pulse of 90, temperature 98.5. She is 92% on room air. General description is an elderly female up in the bed in no distress. Examination of the left knee currently the knee is dressed, no obvious drainage or foul smelling. LABS: Hemoglobin 12.2, white count 14.9, BUN of 11, creatinine 0.62. IMPRESSION/PLAN: 1. Patient with left knee wound, traumatic with no cellulitis. Culture positive for yeast, likely colonized cellulitis. 2. Patient with urinary tract infection. Urine cultures currently pending. She did have slight jump in white count. We will monitor closely. Continue with Unasyn at this point. 3. Continue supportive care. MMODL / IJN: [id number] /
[2018-01-21] MEDS: AMPICILLIN-SULBACTAM 3 GM in SODIUM CHLORIDE 0.9% 100 ML IVPB SCH ×2 (06:27→14:27)
[2018-01-21] MEDS: METOPROLOL TARTRATE 12.5 MG TAB PO SCH ×3 (08:47→21:55)
[2018-01-21] MEDS: FUROSEMIDE 40 MG TAB PO SCH (08:47)
[2018-01-21] MEDS: ENOXAPARIN 40 MG/0.4 ML SYRINGE SQ SCH (08:48)
[2018-01-21] MEDS: FERROUS SULFATE 325 MG TAB PO SCH ×2 (08:48→22:06)
[2018-01-21] MEDS: LISINOPRIL 10 MG TAB PO SCH (08:48)
[2018-01-21] MEDS: predniSONE 5 MG TAB PO SCH (08:48)
[2018-01-21] MEDS: FAMOTIDINE 20 MG TAB PO SCH (08:48)
[2018-01-21] MEDS: MONTELUKAST 10 MG TAB PO SCH (08:49)
[2018-01-21] MEDS: IPRATROPIUM-ALBUTEROL 3 ML NEB INHALATION PRN (09:35)
[2018-01-21] MEDS ORDERED: Potassium Replacement Protocol 1 EACH MISC MISCELLANE PRN (10:04)
--- NOTE | 2018-01-21 10:06 | P.PN ---
Subjective Progress Note Date: 01/21/18 Desire Green is an 87-year-old female who presented to [facility] emergency room in regards to her left knee wound and having multiple falls at home. Patient is a local resident in an assisted living facility and she does have baseline of dementia. Her daughter is at bedside and is able to answer questions. Patient is cooperative and follows commands. The patient followed in regards to her left knee where she had sustained a fall and had been followed outpatient due to some local blistering and soft tissue damage in her knee. It had remained closed until she had a fall yesterday and had unroofing of the wound site. There is some bloody drainage. She was found have a urinary tract infection as well. She is given a dose of antibiotics in the emergency room for urinary tract infection and was admitted for further evaluation and management. [facility], also infectious disease consultation was requested and patient was seen by Dr. Combs. Also consultation for vascular surgery for possible debridement of the left knee wound was initiated On 01/18/2018 patient was seen and examined on the fourth floor she is alert confused in no apparent distress DrKalpesh is at bedside patient denies any pain or discomfort, patient underwent debridement of the left knee wound yesterday by Dr. Moreland, she is maintained on IV antibiotic and local care at this time. Yesterday patient complained of shortness of breath, chest x-ray was done and revealed mild atelectasis otherwise no acute abnormality. She will be started on incentive spirometry, she is also receiving DuoNeb updrafts. On 01/19/2018 patient is seen resting comfortably in bed. Daughter currently at bedside. Awaiting Dr. Moreland's recommendation for further treatment in regards to debridement. Discussed discharge planning with the daughter. Will consult social work and case management. Patient may require rehab if wound VAC and IV antibiotics are needed. Patient does currently reside at an assisted living facility. At this time patient denies chest pain or shortness of breath. Patient denies nausea vomiting or diarrhea. Patient denies any urinary burning or frequency. On 01/20/2018 patient currently resting comfortably in bed. Patient's blood pressure remains elevated. Lisinopril has been added. Patient to get wound VAC application to day. Family agreeable to ECF placement. Case management consulted.. At this time patient denies chest pain or shortness of breath. Patient denies any urinary burning or frequency. Patient denies nausea vomiting or diarrhea On 01/21/2018 patient currently having copious amounts of secretions post breakfast. Patient made nothing by mouth. Chest x-ray ordered and speech eval consulted for evaluation. Patient denies chest pain. Denies nausea vomiting or diarrhea. Denies any urinary burning or frequency Objective - Vital Signs Vital signs: Vital Signs Temp 97.9 F 01/21/18 06:27 Pulse 100 01/21/18 09:54 Resp 18 01/21/18 06:27 BP 166/87 01/21/18 06:27 Pulse Ox 94 L 01/21/18 06:27 Intake & Output 01/20/18 01/21/18 01/21/18 18:59 06:59 18:59 Intake Total 440 Output Total 201 Balance 239 Weight 66.5 kg Intake: Intake, IV Titration 200 Amount Ampicillin-Sulbactam 3 gm 200 In Sodium Chloride 0.9% 100 ml @ 200 mls/hr IVPB Q6HR [facility] Rx#:[id number] Oral 240 Output: Urine 200 Urine/Stool Mix 1 Other: Voiding Method Bedside Commode Bedside Commode Diaper Diaper # Voids 4 2 1 # Bowel Movements 1 1 - Exam Head normocephalic Neck supple Lungs expiratory wheezes bilateral, and crackles at the bases Heart regular rate and rhythm S1-S2, no rub or gallop Abdomen is soft nontender nondistended positive bowel sounds no hepatosplenomegaly Extremities no edema. there is a large wound on the left knee area was some unroofing, and bloody discharge. - Labs CBC & Chem 7: 01/20/18 09:09 01/20/18 09:09 Labs: Microbiology - Last 24 Hours (Table) 01/19/18 17:44 Urine Culture - Final Urine,Clean Catch Assessment and Plan Assessment: #1 subacute right knee wound worsening after recent fall patient will need debridement of the wound doctor . Debridement of wound on 01/[address] Moreland. Possible additional wound debridement today we'll await vascular surgery's recommendation. Wound culture positive for yeast species. Dr. Combs following for infectious disease. wound vac to be applied #2 recurrent falls, Will consult physical therapy and occupational therapy #3 shortness of breath will obtain chest x-ray with order DuoNeb updrafts and monitor progress. Chest x-ray completed showing streak atelectasis left midlung. Elevated right diaphragm appears chronic. Incentive spirometer encouraged and updrafts ordered. [facility] home dose of prednisone continue #4 underlying history of hypertension. Patient still having elevated blood pressures. Lisinopril 10 mg daily added #5 underlying history of hyperlipidemia #6 underlying history of asthma maintained on Singulair at home #7 underlying history of depression maintained on Zoloft #8 underlying history of dementia #9 evidence of urinary tract infection on presentation. patient currently on Unasyn. Urine culture has been ordered #10 hypokalemia. Potassium 3.4. Replace per protocol. #11 possible aspiration. Patient made nothing by mouth. Chest x-ray ordered and speech consulted for swallow evaluation DVT prophylaxis Lovenox. GI prophylaxis Pepcid Patient currently resides at assisted living facility. Patient may possibly need wound VAC and or IV antibiotics. Social work and case management has been consulted. Per daughter, patient may require rehab Per casse management patient has been accepted at that [facility] facility I performed an examination of the patient and discussed their management with the Nurse Practitioner. I have reviewed the Nurse Practitioner's notes and agree with the documented findings and plan of care
[2018-01-21 11:22] LABS: Basophils % (A) 0 %; Eosinophils # (A) 0.1 k/uL (0-0.7); Eosinophils % (A) 1 %; HCT 31.9 % (34.0-46.0); HGB 10.4 gm/dL (11.4-16.0); Hypochromasia Slight; Lymphocytes # (A) 1.1 k/uL (1.0-4.8); Lymphocytes % (A) 8 %; MCH 29.4 pg (25.0-35.0); MCHC 32.6 g/dL (31.0-37.0); Mean Platelet Volume 7.3; Monocytes # (A) 0.5 k/uL (0-1.0); Monocytes % (A) 3 %; Neutrophils # (A) 12.2 k/uL (1.3-7.7); Neutrophils % (A) 87 %; Platelet Count 439 k/uL (150-450); RBC 3.54 m/uL (3.80-5.40); RDW 15.7 % (11.5-15.5)
[2018-01-21 11:34] LABS: ALT 20 U/L (9-52); AST 37 U/L (14-36); Albumin 3.3 g/dL (3.5-5.0); Alkaline Phosphatase 95 U/L (38-126); Anion Gap 8 mmol/L; Blood Urea Nitrogen 9 mg/dL (7-17); Calcium 8.7 mg/dL (8.4-10.2); Carbon Dioxide 27 mmol/L (22-30); Chloride 104 mmol/L (98-107); Glucose 137 mg/dL (74-99); Potassium 3.5 mmol/L (3.5-5.1); Sodium 139 mmol/L (137-145); Total Bilirubin 0.6 mg/dL (0.2-1.3); Total Protein 6.7 g/dL (6.3-8.2)
[2018-01-21] MEDS: POTASSIUM CHLORIDE 20 MEQ in WATER FOR INJECTION 1 100ML.BAG IVPB SCH ×2 (12:58→13:08)
--- NOTE | 2018-01-21 13:45 | PN ---
PROGRESS NOTE DATE OF SERVICE: 01/21/2018 REASON FOR FOLLOW UP: 1. Left knee wound. 2. Possible aspiration pneumonia. 3. UTI. INTERVAL HISTORY: The patient is afebrile. She did have problems with choking after she did have some meal this morning with concern for possible aspiration. Swallow study has been ordered and a chest x-ray. The patient is currently sleepy and in no distress. No nausea, vomiting has been noticed. PHYSICAL EXAMINATION: Blood pressure 166/87 with a pulse of 95, temperature 97.9. She is 94% on room air. General description is an elderly female, lying in bed in no distress. RESPIRATORY SYSTEM: Unlabored breathing, clear to auscultation anteriorly. HEART: S1, S2. Regular rate and rhythm. ABDOMEN: Soft, no tenderness. Left knee was currently covered with a wound VAC. LABS: White count elevated at 14,000 with a BUN of 9, creatinine 0.65. DIAGNOSTIC IMPRESSION AND PLAN: 1. Patient with left knee wound, traumatic with no evidence of any infection, status post debridement. Local care to continue with the wound VAC. 2. Patient with possible aspiration pneumonitis with elevated white count despite being on Unasyn. Swallow evaluation has been requested. Antibiotic will be brought in to Zosyn. Will try to obtain a sputum. Continue supportive care. MMODL / IJN: [id number] /
--- NOTE | 2018-01-21 13:45 | XR ---
EXAMINATION TYPE: XR chest 2V DATE OF EXAM: 01/21/2018 COMPARISON: 01/17/2018 HISTORY: 87-year-old female possible aspiration, shortness of breath TECHNIQUE: Frontal and lateral views FINDINGS: Heart mildly enlarged. Diffuse interstitial prominence persists with peribronchial cuffing. Some flui d thickening the minor fissure. Trace effusion seen on the lateral view. Eventration anterior right h emidiaphragm. Patchy basilar opacity seen on the lateral view. IMPRESSION: Interstitial changes persist, possible chronic bronchitis/asthma. New trace pleural fluid thickening the minor fissure. Trace effusion seen on the lateral view. There is some mild patchy posterior basil ar atelectasis or early infiltrate.
[2018-01-21] MEDS: SERTRALINE 100 MG TAB PO SCH (17:43)
[2018-01-21] MEDS: ATORVASTATIN 10 MG TAB PO SCH (17:43)
[2018-01-21] MEDS: PIPERACILLIN-TAZOBACTAM 3.375 GM in DEXTROSE/WATER 1 50ML.BAG IVPB SCH (17:43)
[2018-01-21] MEDS: LATANOPROST 0.005% OPHTH DROPS 2.5 ML BTL BOTH EYES SCH (22:05)
[2018-01-21] MEDS: SODIUM CHLORIDE 0.9% 1,000 ML IV SCH (22:05)
[2018-01-22] MEDS: PIPERACILLIN-TAZOBACTAM 3.375 GM in DEXTROSE/WATER 1 50ML.BAG IVPB SCH ×3 (00:12→15:45)
[2018-01-22] MEDS: ACETAMINOPHEN TAB 325 MG TAB PO PRN ×4 (00:17→22:01)
[2018-01-22] MEDS: METOPROLOL TARTRATE 12.5 MG TAB PO SCH ×3 (07:51→22:01)
[2018-01-22] MEDS: predniSONE 5 MG TAB PO SCH (07:52)
[2018-01-22] MEDS: ENOXAPARIN 40 MG/0.4 ML SYRINGE SQ SCH (07:52)
[2018-01-22] MEDS: FUROSEMIDE 40 MG TAB PO SCH (07:52)
[2018-01-22] MEDS: MONTELUKAST 10 MG TAB PO SCH (07:52)
[2018-01-22] MEDS: FAMOTIDINE 20 MG TAB PO SCH (07:53)
[2018-01-22] MEDS: LISINOPRIL 10 MG TAB PO SCH (07:53)
[2018-01-22] MEDS: FERROUS SULFATE 325 MG TAB PO SCH ×2 (07:53→22:07)
[2018-01-22 08:49] LABS: Albumin 3.1 g/dL (3.5-5.0); Calcium 8.9 mg/dL (8.4-10.2); Potassium 3.5 mmol/L (3.5-5.1); Total Bilirubin 0.8 mg/dL (0.2-1.3); Total Protein 6.2 g/dL (6.3-8.2)
[2018-01-22 09:04] LABS: Basophils % (A) 0 %; Eosinophils # (A) 0.2 k/uL (0-0.7); Eosinophils % (A) 2 %; HCT 32.9 % (34.0-46.0); HGB 10.2 gm/dL (11.4-16.0); Hypochromasia Moderate; Lymphocytes # (A) 1.5 k/uL (1.0-4.8); Lymphocytes % (A) 15 %; MCH 29.3 pg (25.0-35.0); MCV 94.3 fL (80.0-100.0); Monocytes # (A) 0.5 k/uL (0-1.0); Monocytes % (A) 5 %; Neutrophils # (A) 8.2 k/uL (1.3-7.7); Neutrophils % (A) 78 %; Platelet Count 382 k/uL (150-450); RBC 3.48 m/uL (3.80-5.40); RDW 15.8 % (11.5-15.5); WBC 10.5 k/uL (3.8-10.6)
--- NOTE | 2018-01-22 14:02 | P.PN ---
Subjective Progress Note Date: 01/22/18 Desire Green is an 87-year-old female who presented to [facility] emergency room in regards to her left knee wound and having multiple falls at home. Patient is a local resident in an assisted living facility and she does have baseline of dementia. Her daughter is at bedside and is able to answer questions. Patient is cooperative and follows commands. The patient followed in regards to her left knee where she had sustained a fall and had been followed outpatient due to some local blistering and soft tissue damage in her knee. It had remained closed until she had a fall yesterday and had unroofing of the wound site. There is some bloody drainage. She was found have a urinary tract infection as well. She is given a dose of antibiotics in the emergency room for urinary tract infection and was admitted for further evaluation and management. [facility], also infectious disease consultation was requested and patient was seen by Dr. Combs. Also consultation for vascular surgery for possible debridement of the left knee wound was initiated On 01/18/2018 patient was seen and examined on the fourth floor she is alert confused in no apparent distress DrKalpesh is at bedside patient denies any pain or discomfort, patient underwent debridement of the left knee wound yesterday by Dr. Moreland, she is maintained on IV antibiotic and local care at this time. Yesterday patient complained of shortness of breath, chest x-ray was done and revealed mild atelectasis otherwise no acute abnormality. She will be started on incentive spirometry, she is also receiving DuoNeb updrafts. On 01/19/2018 patient is seen resting comfortably in bed. Daughter currently at bedside. Awaiting Dr. Moreland's recommendation for further treatment in regards to debridement. Discussed discharge planning with the daughter. Will consult social work and case management. Patient may require rehab if wound VAC and IV antibiotics are needed. Patient does currently reside at an assisted living facility. At this time patient denies chest pain or shortness of breath. Patient denies nausea vomiting or diarrhea. Patient denies any urinary burning or frequency. On 01/20/2018 patient currently resting comfortably in bed. Patient's blood pressure remains elevated. Lisinopril has been added. Patient to get wound VAC application to day. Family agreeable to ECF placement. Case management consulted.. At this time patient denies chest pain or shortness of breath. Patient denies any urinary burning or frequency. Patient denies nausea vomiting or diarrhea On 01/21/2018 patient currently having copious amounts of secretions post breakfast. Patient made nothing by mouth. Chest x-ray ordered and speech eval consulted for evaluation. Patient denies chest pain. Denies nausea vomiting or diarrhea. Denies any urinary burning or frequency On 01/22/2018 patient is resting comfortably in bed. Daughter at bedside. Speech eval completed. Per speech therapy no overt signs or symptoms of aspiration were observed with varying consistencies. Diet has been reordered. Awaiting pulmonary consult for possible pneumonia. This time patient denies chest pain or shortness of breath. Patient denies any urinary burning or frequency. Patient denies nausea vomiting or diarrhea Objective - Vital Signs Vital signs: Vital Signs Temp 98.0 F 01/22/18 07:00 Pulse 76 01/22/18 07:00 Resp 16 01/22/18 07:00 BP 158/81 01/22/18 07:00 Pulse Ox 100 01/22/18 07:00 Intake & Output 01/21/18 01/22/18 01/22/18 18:59 06:59 18:59 Intake Total 300 Balance 300 Intake: Oral 300 Other: Voiding Method Bedside Commode Bedside Commode Toilet Diaper Diaper # Voids 4 2 1 # Bowel Movements 1 0 - Exam Head normocephalic Neck supple Lungs expiratory wheezes bilateral, and crackles at the bases Heart regular rate and rhythm S1-S2, no rub or gallop Abdomen is soft nontender nondistended positive bowel sounds no hepatosplenomegaly Extremities no edema. Wound vac to left knee remains in place - Labs CBC & Chem 7: 01/22/18 08:02 01/22/18 08:02 Labs: Abnormal Lab Results - Last 24 Hours (Table) 01/22/18 01/22/18 Range/Units 08:02 08:02 RBC 3.48 L (3.80-5.40) m/uL Hgb 10.2 L (11.4-16.0) gm/dL Hct 32.9 L (34.0-46.0) % RDW 15.8 H (11.5-15.5) % Neutrophils # 8.2 H (1.3-7.7) k/uL Total Protein 6.2 L (6.3-8.2) g/dL Albumin 3.1 L (3.5-5.0) g/dL Microbiology - Last 24 Hours (Table) 01/17/18 03:50 Anaerobic Culture - Final Knee - Left Assessment and Plan Assessment: #1 subacute right knee wound worsening after recent fall patient will need debridement of the wound doctor . Debridement of wound on 01/[address] Moreland. Possible additional wound debridement today we'll await vascular surgery's recommendation. Wound culture positive for yeast species. Dr. Combs following for infectious disease. wound vac to be applied. Per nursing patient has had minimal output from wound VAC. Discussed with Dr. Moreland. Per nursing staff Dr. Moreland set wound VAC can be discontinued. #2 recurrent falls, Will consult physical therapy and occupational therapy #3 shortness of breath will obtain chest x-ray with order DuoNeb updrafts and monitor progress. Chest x-ray completed showing streak atelectasis left midlung. Elevated right diaphragm appears chronic. Incentive spirometer encouraged and updrafts ordered. Patient's home dose of prednisone continue #4 underlying history of hypertension. Patient still having elevated blood pressures. Lisinopril 10 mg daily added #5 underlying history of hyperlipidemia #6 underlying history of asthma maintained on Singulair at home #7 underlying history of depression maintained on Zoloft #8 underlying history of dementia #9 evidence of urinary tract infection on presentation. patient currently on Unasyn. Urine culture has been ordered #10 hypokalemia. Potassium 3.4. Replace per protocol. #11 possible aspiration. Patient made nothing by mouth. Chest x-ray ordered and speech consulted for swallow evaluation. Per speech evaluation no overt signs or symptoms of aspiration were observed with spurring consistencies. Recommended reinitiating regular diet and liquids. Chest x-ray completed showing interstitial changes persist possible chronic bronchitis/asthma. Trace pleural fluid thickening the minor fissure. Trace effusion seen on lateral view. There is some mild patchy posterior basilar atelectasis or early infiltrate. Awaiting pulmonary consult. Per infectious disease patient has been switched to Zosyn to cover aspiration pneumonia. DVT prophylaxis Lovenox. GI prophylaxis Pepcid Patient currently resides at assisted living facility. Patient may possibly need wound VAC and or IV antibiotics. Social work and case management has been consulted. Per daughter, patient may require rehab Per case management patient has been accepted at that [facility] Per patient started patient does not require wound VAC for IV antibiotics patient may return to assisted living facility. Anticipate discharge in the next 24-48 hours I performed an examination of the patient and discussed their management with the Nurse Practitioner. I have reviewed the Nurse Practitioner's notes and agree with the documented findings and plan of care
--- NOTE | 2018-01-22 15:02 | P.CNPUL ---
History of Present Illness Consult date: 01/22/18 Reason for consult: dyspnea, cough Chief complaint: Shortness of breath and coughing during eating History of present illness: 87-year-old female with the prior medical history of advanced dementia and Alzheimer's disease patient is been having recurrent fall with a large hematoma in the knee which developed into a board patient has a wound VAC, patient was brought into the emergency department due to frequent falls yesterday while eating patient had an episode in which she goes into coughing and choking episode I was asked to evaluate for aspiration, patient has been eval by speech and swallow no evidence of significant aspiration has been noted currently patient is asymptomatic denies any cough or sputum production denies any night sweats fever or chills, the chest x-ray performed the revealed presence of prominent interstitium no clearcut infiltrate are seen some fluid accumulation and minor fissure area on the right side cannot be excluded with some patchy basilar atelectasis, on specific questioning patient denies any night sweats fever or chills denies any cough or sputum production Desire Green is an 87-year-old female who presented to [facility] emergency room in regards to her left knee wound and having multiple falls at home. Patient is a local resident in an assisted living facility and she does have baseline of dementia. Her daughter is at bedside and is able to answer questions. Patient is cooperative and follows commands. The patient followed in regards to her left knee where she had sustained a fall and had been followed outpatient due to some local blistering and soft tissue damage in her knee. It had remained closed until she had a fall yesterday and had unroofing of the wound site. There is some bloody drainage. She was found have a urinary tract infection as well. She is given a dose of antibiotics in the emergency room for urinary tract infection and was admitted for further evaluation and management. [facility], also infectious disease consultation was requested and patient was seen by Dr. Combs. 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 per pt's daughter-pt has a sore in outh from her partial plate.dementia w/ "sundowners" History of Any Multi-Drug Resistant Organisms: None Reported Past Surgical History: Hysterectomy, Orthopedic Surgery, Tonsillectomy Additional Past Surgical History / Comment(s): X2 RT hip replacement, cataract Past Anesthesia/Blood Transfusion Reactions: No Reported Reaction Past Psychological History: Anxiety, Depression Additional Psychological History / Comment(s): PT LIVES AT [facility] SINCE MARCH. USES A WALKER Smoking Status: Never smoker Past Alcohol Use History: None Reported Past Drug Use History: None Reported - Past Family History Sister(s) Family Medical History: Cancer Additional Family Medical History / Comment(s): BREAST CANCER Father Family Medical History: No Reported History Additional Family Medical History / Comment(s): FROM OLD AGE Medications and Allergies Home Medications Medication Instructions Recorded Confirmed Type Bimatoprost [Lumigan .01% Ophth 1 drop BOTH EYES HS@199911/11/16 01/17/18 History Soln] Sertraline HCl [Zoloft] 100 mg PO DAILY@169911/11/16 01/17/18 History Acetaminophen [Tylenol Extra 500 mg PO Q4HR PRN 04/03/17 01/17/18 History Strength] Albuterol Inhaler [Ventolin Hfa 2 puff INHALATION RT-QID PRN 04/03/17 01/17/18 History Inhaler] Albuterol Nebulized [Ventolin 2.5 mg INHALATION RT-QID PRN 04/03/17 01/16/18 History Nebulized] Clotrimazole/Betameth Cream 1 applic TOPICAL BID PRN 04/03/17 01/17/18 History [Lotrisone] Simvastatin [Zocor] 20 mg PO DAILY@169904/03/17 01/17/18 History predniSONE 5 mg PO DAILY@79904/03/17 01/17/18 History Cranberry Fruit Concentrate 450 mg PO BID@,12/31/17 01/17/18 History [Cranberry] Furosemide [Lasix] 40 mg PO DAILY@79912/31/17 01/17/18 History Metoprolol Tartrate [Lopressor] 12.5 mg PO TID@,14,20 12/31/17 01/17/18 History Montelukast [Singulair] 10 mg PO DAILY@0800 12/31/17 01/17/18 History Vit C/E/Zn/Coppr/Lutein/Zeaxan 1 cap PO BID@08,17 12/31/17 01/17/18 History [Preservision Areds 2 Softgel] Ferrous Sulfate [Feosol] 325 mg PO BID #60 tab 01/02/18 01/17/18 Rx Aspirin 325 mg PO DAILY 01/16/18 01/17/18 History Ibuprofen [Motrin Ib] 400 mg PO Q6H PRN 01/16/18 01/17/18 History Smooth Lax 17 g PO DAILY PRN 01/16/18 01/16/18 History Temazepam [Restoril] 15 mg PO HS PRN 01/16/18 01/17/18 History Allergies Allergy/AdvReac Type Severity Reaction Status Date / Time No Known Allergies Allergy Verified 01/16/18 22:53 Physical Exam Vitals: Vital Signs Temp Pulse Resp BP Pulse Ox 01/22/18 07:00 98.0 F 76 16 158/81 100 01/21/18 23:00 98.2 F 83 20 145/78 92 L 01/21/18 15:00 98.9 F 97 16 146/73 93 L Intake and Output 01/21/18 01/22/18 01/22/18 22:59 06:59 14:59 Intake Total 200 100 Balance 200 100 Intake: Oral 200 100 Other: Voiding Method Bedside Commode Bedside Commode Toilet Diaper Diaper # Voids 0 2 1 # Bowel Movements 0 0 Head normocephalic, atraumatic HEENT examination otherwise unremarkable Neck supple, no significant jugular vein is distention carotid bruit was noted no significant lymphadenopathy Lungs overall good air entry few crackles at the bases cannot be excluded Heart regular rate and rhythm S1-S2, no rub or gallop Abdomen is soft nontender nondistended positive bowel sounds no hepatosplenomegaly Extremities no edema. Wound vac to left knee remains in place Results - Laboratory Findings CBC and BMP: 01/22/18 08:02 01/22/18 08:02 PT/INR, D-dimer PT 9.8 sec (9.0-12.0) 01/16/18 23:22 INR 1.0 (<1.2) 01/16/18 23:22 Abnormal lab findings: Abnormal Labs 01/16/18 01/16/18 01/16/18 23:22 23:22 23:22 WBC 12.1 H RBC 3.76 L Hgb 11.0 L Hct RDW 16.2 H Neutrophils # 8.9 H APTT 20.1 L Potassium BUN 19 H Glucose AST Total Protein Albumin Urine Appearance Urine Protein Urine Nitrite Ur Leukocyte Esterase Urine WBC Ur Squamous Epith Cells Urine Bacteria Urine Mucus 01/16/18 01/19/18 01/19/18 23:33 09:41 09:41 WBC 11.5 H RBC 3.49 L Hgb 10.2 L Hct 31.9 L RDW Neutrophils # 9.1 H APTT Potassium 3.3 L BUN Glucose 104 H AST Total Protein 6.0 L Albumin 3.1 L Urine Appearance Cloudy H Urine Protein Trace H Urine Nitrite Positive H Ur Leukocyte Esterase Large H Urine WBC 34 H Ur Squamous Epith Cells 17 H Urine Bacteria Occasional H Urine Mucus Rare H 01/20/18 01/20/18 01/21/18 09:09 09:09 10:18 WBC 14.9 H 14.0 H RBC 3.55 L 3.54 L Hgb 10.2 L 10.4 L Hct 32.0 L 31.9 L RDW 15.8 H 15.7 H Neutrophils # 12.1 H 12.2 H APTT Potassium 3.4 L BUN Glucose 111 H AST Total Protein Albumin 3.2 L Urine Appearance Urine Protein Urine Nitrite Ur Leukocyte Esterase Urine WBC Ur Squamous Epith Cells Urine Bacteria Urine Mucus 01/21/18 01/22/18 01/22/18 10:18 08:02 08:02 WBC RBC 3.48 L Hgb 10.2 L Hct 32.9 L RDW 15.8 H Neutrophils # 8.2 H APTT Potassium BUN Glucose 137 H AST 37 H Total Protein 6.2 L Albumin 3.3 L 3.1 L Urine Appearance Urine Protein Urine Nitrite Ur Leukocyte Esterase Urine WBC Ur Squamous Epith Cells Urine Bacteria Urine Mucus - Diagnostic Findings Chest x-ray: report reviewed, image reviewed Assessment and Plan Assessment: Episode of aspiration and coughing associated with that transient in nature no more episodes has been noted Right lower lobe subtle pneumonia cannot be excluded Advanced dementia and on exam his disease History of recurrent falls Chronic persistent asthma Hypertension hypertensive cardiovascular disease Electrolyte imbalance with hypokalemia Plan: Continue supportive care Monitor aspiration precautions Zosyn can be switched to oral Augmentin, 500 twice a day for 5-7 days Agree with discharge planning to extended care facility Care plan discussed with the primary service as well as daughter present at bedside at length Continue other supportive care Further recommendations pending plan of care as per clinical response of the patient Time with Patient: Greater than 30
[2018-01-22] MEDS ORDERED: MORPHINE SULFATE 2 MG/ML SYRINGE IVP STA (15:20)
[2018-01-22] MEDS: ATORVASTATIN 10 MG TAB PO SCH (15:48)
[2018-01-22] MEDS: SERTRALINE 100 MG TAB PO SCH (15:48)
--- NOTE | 2018-01-22 16:25 | PN ---
PROGRESS NOTE DATE OF SERVICE: 01/22/2018. REASON FOR FOLLOWUP: 1. Left knee wound. 2. Possible aspiration pneumonia. INTERVAL HISTORY: The patient is currently afebrile. She is more awake, alert. She is breathing comfortably. Denies any chest pain or shortness of breath. Occasional cough. No abdominal pain or pain to the left knee area. EXAMINATION: Blood pressure 125/75 with a pulse of 86, temperature 97.3. She is 93% on room air. General description is an elderly female, lying in bed in no distress. Respiratory system: Unlabored breathing. Clear to auscultation anteriorly. Heart S1, S2. Regular rate and rhythm. Abdomen soft. No tenderness. Left knee is currently covered with wound VAC with no output in the wound VAC. LABS: White count normal at 10.4, BUN of 9, creatinine 0.81. Urine culture repeat has been negative. DIAGNOSTIC IMPRESSION AND PLAN: 1. Patient left knee wound with no cellulitis. Recommend local wound care. Currently with wound vac that can be transitioned to Aquacel silver dressing. 2. The patient with possible aspiration pneumonitis. Her white count responded to addition of Zosyn yesterday. Strict aspiration precautions and possible discharge home on oral Avelox for 5 to 6 days. Daughter present at the bedside. Questions were answered. MMODL / IJN: [id number] /
[2018-01-22] MEDS: LATANOPROST 0.005% OPHTH DROPS 2.5 ML BTL BOTH EYES SCH (22:01)
[2018-01-23] MEDS: PIPERACILLIN-TAZOBACTAM 3.375 GM in DEXTROSE/WATER 1 50ML.BAG IVPB SCH ×2 (00:41→08:45)
[2018-01-23] MEDS: SODIUM CHLORIDE 0.9% 1,000 ML IV SCH (01:55)
[2018-01-23 06:50] VITALS: BP 127/74; PULSE 77; RESP 18; TEMP 97.4
[2018-01-23] MEDS: METOPROLOL TARTRATE 12.5 MG TAB PO SCH (08:44)
[2018-01-23] MEDS: ENOXAPARIN 40 MG/0.4 ML SYRINGE SQ SCH (08:44)
[2018-01-23] MEDS: MONTELUKAST 10 MG TAB PO SCH (08:44)
[2018-01-23] MEDS: LISINOPRIL 10 MG TAB PO SCH (08:44)
[2018-01-23] MEDS: FUROSEMIDE 40 MG TAB PO SCH (08:44)
[2018-01-23] MEDS: FAMOTIDINE 20 MG TAB PO SCH (08:44)
[2018-01-23] MEDS: FERROUS SULFATE 325 MG TAB PO SCH (08:45)
[2018-01-23] MEDS: predniSONE 5 MG TAB PO SCH (08:45)
[2018-01-23 09:51] LABS: Basophils % (A) 0 %; Eosinophils # (A) 0.3 k/uL (0-0.7); Eosinophils % (A) 2 %; HCT 33.6 % (34.0-46.0); HGB 10.4 gm/dL (11.4-16.0); Hypochromasia Slight; Lymphocytes # (A) 1.5 k/uL (1.0-4.8); Lymphocytes % (A) 15 %; MCH 28.2 pg (25.0-35.0); Monocytes # (A) 0.4 k/uL (0-1.0); Monocytes % (A) 4 %; Neutrophils # (A) 8.1 k/uL (1.3-7.7); Neutrophils % (A) 78 %; Platelet Count 427 k/uL (150-450); RBC 3.69 m/uL (3.80-5.40); RDW 15.7 % (11.5-15.5); WBC 10.4 k/uL (3.8-10.6)
[2018-01-23 10:37] LABS: Albumin 3.2 g/dL (3.5-5.0); Calcium 8.7 mg/dL (8.4-10.2); Potassium 3.2 mmol/L (3.5-5.1); Total Bilirubin 0.7 mg/dL (0.2-1.3); Total Protein 6.4 g/dL (6.3-8.2)
--- NOTE | 2018-01-23 10:40 | P.DS ---
Providers Date of admission: 01/18/18 13:40 Expected date of discharge: 01/23/18 Attending physician: Selin Antonio Consults: 01/17/18 10:12 Consult Physician Routine Consulting Provider: Celestina Combs Consult Reason/Comments: wound care, left knee Do you want consulting provider notified?: Yes 01/17/18 14:36 Consult Physician Urgent Consulting Provider: Darin Moreland Consult Reason/Comments: left knee wound for surgical debridment of the necrotic tissue Do you want consulting provider notified?: Yes 01/21/18 14:22 Consult Physician Routine Consulting Provider: Edi Prince Consult Reason/Comments: possible aspiration. chest xray result Do you want consulting provider notified?: Yes Primary care physician: Any Mckinley Hospital Course: Discharge diagnosis #1 subacute right knee wound worsening after recent fall patient will need debridement of the wound doctor . Debridement of wound on 01/[address] Moreland. Possible additional wound debridement today we'll await vascular surgery's recommendation. Wound culture positive for yeast species. Dr. Combs following for infectious disease. wound vac to be applied. Per nursing patient has had minimal output from wound VAC. Discussed with Dr. Moreland. Per nursing staff Dr. Moreland set wound VAC can be discontinued. Dressing changes per Dr. Moreland and wound care clinic. Patient will require wound VAC upon discharge. Patient has been cleared for discharge. #2 recurrent falls, Will consult physical therapy and occupational therapy #3 shortness of breath will obtain chest x-ray with order DuoNeb updrafts and monitor progress. Chest x-ray completed showing streak atelectasis left midlung. Elevated right diaphragm appears chronic. Incentive spirometer encouraged and updrafts ordered. Patient's home dose of prednisone continue #4 underlying history of hypertension. Patient still having elevated blood pressures. Lisinopril 10 mg daily added #5 underlying history of hyperlipidemia #6 underlying history of asthma maintained on Singulair at home #7 underlying history of depression maintained on Zoloft #8 underlying history of dementia #9 evidence of urinary tract infection on presentation. patient currently on Unasyn. Urine culture has been ordered #10 hypokalemia. Potassium 3.4. Replace per protocol. #11 possible aspiration. Patient made nothing by mouth. Chest x-ray ordered and speech consulted for swallow evaluation. Per speech evaluation no overt signs or symptoms of aspiration were observed with spurring consistencies. Recommended reinitiating regular diet and liquids. Chest x-ray completed showing interstitial changes persist possible chronic bronchitis/asthma. Trace pleural fluid thickening the minor fissure. Trace effusion seen on lateral view. There is some mild patchy posterior basilar atelectasis or early infiltrate. The pulmonary consult continue supportive care. Continue monitor aspiration precautions. Patient will be discharged home on Avelox antibiotic per infectious disease hospital course Desire Green is an 87-year-old female who presented to [facility] emergency room in regards to her left knee wound and having multiple falls at home. Patient is a local resident in an assisted living facility and she does have baseline of dementia. Her daughter is at bedside and is able to answer questions. Patient is cooperative and follows commands. The patient followed in regards to her left knee where she had sustained a fall and had been followed outpatient due to some local blistering and soft tissue damage in her knee. It had remained closed until she had a fall yesterday and had unroofing of the wound site. There is some bloody drainage. She was found have a urinary tract infection as well. She is given a dose of antibiotics in the emergency room for urinary tract infection and was admitted for further evaluation and management. [facility], also infectious disease consultation was requested and patient was seen by Dr. Combs. Also consultation for vascular surgery for possible debridement of the left knee wound was initiated On 01/18/2018 patient was seen and examined on the fourth floor she is alert confused in no apparent distress DrKalpesh is at bedside patient denies any pain or discomfort, patient underwent debridement of the left knee wound yesterday by Dr. Moreland, she is maintained on IV antibiotic and local care at this time. Yesterday patient complained of shortness of breath, chest x-ray was done and revealed mild atelectasis otherwise no acute abnormality. She will be started on incentive spirometry, [facility] On 01/19/2018 patient is seen resting comfortably in bed. Daughter currently at bedside. Awaiting Dr. Moreland's recommendation for further treatment in regards to debridement. Discussed discharge planning with the daughter. Will consult social work and case management. Patient may require rehab if wound VAC and IV antibiotics are needed. Patient does currently reside at an assisted living facility. At this time patient denies chest pain or shortness of breath. Patient denies nausea vomiting or diarrhea. Patient denies any urinary burning or frequency. On 01/20/2018 patient currently resting comfortably in bed. Patient's blood pressure remains elevated. Lisinopril has been added. Patient to get wound VAC application to day. Family agreeable to ECF placement. Case management consulted.. At this time patient denies chest pain or shortness of breath. Patient denies any urinary burning or frequency. Patient denies nausea vomiting or diarrhea On 01/21/2018 patient currently having copious amounts of secretions post breakfast. Patient made nothing by mouth. Chest x-ray ordered and speech eval consulted for evaluation. Patient denies chest pain. Denies nausea vomiting or diarrhea. Denies any urinary burning or frequency On 01/22/2018 patient is resting comfortably in bed. Daughter at bedside. Speech eval completed. Per speech therapy no overt signs or symptoms of aspiration were observed with varying consistencies. Diet has been reordered. Awaiting pulmonary consult for possible pneumonia. This time patient denies chest pain or shortness of breath. Patient denies any urinary burning or frequency. Patient denies nausea vomiting or diarrhea On 01/23/2018 patient is resting comfortably in bed. Patient has been able to tolerate diet. Patient has been on room air with no signs of shortness of breath. Wound VAC has been removed per Dr. Moreland. Patient will be able to go back to assisted living with home healthcare services now not requiring wound VAC or IV antibiotics. Patient will go home on oral antibiotics per infectious disease. CBC and CMP ordered for 3 days. Patient to follow-up closely with PCP and consulting providers. At this time patient denies chest pain. Patient denies shortness of breath. Patient denies nausea vomiting or diarrhea. Patient denies any urinary burning or frequency. Patient Condition at Discharge: Stable Plan - Discharge Summary Discharge Rx Participant: Yes New Discharge Prescriptions: New Moxifloxacin HCl [Avelox] 400 mg PO DAILY 7 Days #7 tablet Lisinopril [Zestril] 10 mg PO DAILY 30 Days #30 tab Continue Sertraline HCl [Zoloft] 100 mg PO DAILY@1700 Bimatoprost [Lumigan .01% Ophth Soln] 1 drop BOTH EYES HS@2000 Clotrimazole/Betameth Cream [Lotrisone] 1 applic TOPICAL BID PRN PRN Reason: Rash Acetaminophen [Tylenol Extra Strength] 500 mg PO Q4HR PRN PRN Reason: Pain predniSONE 5 mg PO DAILY@0800 Albuterol Inhaler [Ventolin Hfa Inhaler] 2 puff INHALATION RT-QID PRN PRN Reason: Shortness Of Breath Simvastatin [Zocor] 20 mg PO DAILY@1700 Albuterol Nebulized [Ventolin Nebulized] 2.5 mg INHALATION RT-QID PRN PRN Reason: Shortness Of Breath Furosemide [Lasix] 40 mg PO DAILY@0800 Montelukast [Singulair] 10 mg PO DAILY@0800 Vit C/E/Zn/Coppr/Lutein/Zeaxan [Preservision Areds 2 Softgel] 1 cap PO BID@ Cranberry Fruit Concentrate [Cranberry] 450 mg PO BID@ Metoprolol Tartrate [Lopressor] 12.5 mg PO TID@ Ferrous Sulfate [Feosol] 325 mg PO BID #60 tab Aspirin 325 mg PO DAILY Ibuprofen [Motrin Ib] 400 mg PO Q6H PRN PRN Reason: Pain Smooth Lax 17 g PO DAILY PRN PRN Reason: Constipation Temazepam [Restoril] 15 mg PO HS PRN PRN Reason: Insomnia Discharge Medication List Bimatoprost [Lumigan .01% Ophth Soln] 1 drop BOTH EYES HS@199911/11/16 [History ] Sertraline HCl [Zoloft] 100 mg PO DAILY@1700 11/11/16 [History] Acetaminophen [Tylenol Extra Strength] 500 mg PO Q4HR PRN 04/03/17 [History] Albuterol Inhaler [Ventolin Hfa Inhaler] 2 puff INHALATION RT-QID PRN 04/03/17 [ History] Albuterol Nebulized [Ventolin Nebulized] 2.5 mg INHALATION RT-QID PRN 04/03/17 [ History] Clotrimazole/Betameth Cream [Lotrisone] 1 applic TOPICAL BID PRN 04/03/17 [ History] Simvastatin [Zocor] 20 mg PO DAILY@1700 04/03/17 [History] predniSONE 5 mg PO DAILY@0800 04/03/17 [History] Cranberry Fruit Concentrate [Cranberry] 450 mg PO BID@12/31/17 [History] Furosemide [Lasix] 40 mg PO DAILY@0812/31/17 [History] Metoprolol Tartrate [Lopressor] 12.5 mg PO TID@08,,12/31/17 [History] Montelukast [Singulair] 10 mg PO DAILY@0800 12/31/17 [History] Vit C/E/Zn/Coppr/Lutein/Zeaxan [Preservision Areds 2 Softgel] 1 cap PO BID@, 12/31/17 [History] Ferrous Sulfate [Feosol] 325 mg PO BID #60 tab 01/02/18 [Rx] Aspirin 325 mg PO DAILY 01/16/18 [History] Ibuprofen [Motrin Ib] 400 mg PO Q6H PRN 01/16/18 [History] Smooth Lax 17 g PO DAILY PRN 01/16/18 [History] Temazepam [Restoril] 15 mg PO HS PRN 01/16/18 [History] Lisinopril [Zestril] 10 mg PO DAILY 30 Days #30 tab 01/23/18 [Rx] Moxifloxacin HCl [Avelox] 400 mg PO DAILY 7 Days #7 tablet 01/23/18 [Rx] Follow up Appointment(s)/Referral(s): Any Mckinley MD [Primary Care Provider] - [facility] days [facility] [[facility] - 01/26/18 (With Dr Moreland. ) Edi Prince MD [STAFF PHYSICIAN] - 1 Week Ambulatory/Diagnostic Orders: Complete Blood Count w/diff [LAB.AMB] Time Frame: 3 Days, Location: None Selected Comprehensive Metabolic Panel [LAB.AMB] Time Frame: 3 Days, Location: None Selected Activity/Diet/Wound Care/Special Instructions: Diet heart healthy Activity as tolerated [facility] on discharge [phone]- Please call when discharged Discharge Disposition: HOME WITH HOME HEALTH SERVICES
[2018-01-23] MEDS ORDERED: INFLUENZA VACCINE (6 MOS+) 60 MCG/0.5 ML SYRINGE IM ONE (10:54)
--- NOTE | 2018-01-23 13:50 | PN ---
PROGRESS NOTE DATE OF SERVICE: 01/23/2018 REASON FOR FOLLOWUP: 1. Left knee wound. 2. Possible aspiration pneumonitis. INTERVAL HISTORY: The patient is currently afebrile. She is breathing comfortably. Denies having any chest pain or shortness of breath. Occasional cough. No abdominal pain or any worsening pain in the left knee area. PHYSICAL EXAMINATION: On examination, blood pressure is 127/74 with a pulse of 77, temperature 97.4. She is 94% on room air. General description is an elderly female, lying in bed in no distress. RESPIRATORY SYSTEM: Unlabored breathing, clear to auscultation anteriorly. HEART: S1, S2. Regular rate and rhythm. ABDOMEN: Soft, no tenderness. Left knee is currently dressed, no obvious drainage on the dressing. DIAGNOSTIC IMPRESSION AND PLAN: 1. Patient with left knee wound with no evidence of any cellulitis. Local care with Aquacel Silver dressing. 2. The patient with possible aspiration pneumonitis. The patient to finish therapy with oral Augmentin and close outpatient followup. MMODL / IJN: [id number] /
== END 2018-01-23 12:15 | disposition home health service (06) | DRG 570 ==
LOC: EC 22:21 → 4MS4W 01-17 01:51 → OBSVTOIN 01-18 13:40
PROVIDERS: ADMIT Internal Medicine; ATTEND Internal Medicine
PROC: 0JBP0ZZ Excision of Left Lower Leg Subcutaneous Tissue and Fascia, Open Approach (ICD-10-PCS; principal; 2018-01-18)
PROC: 3E0234Z Introduction of Serum, Toxoid and Vaccine into Muscle, Percutaneous Approach (ICD-10-PCS; 2018-01-23)
DX: S81.002A Unspecified open wound, left knee, initial encounter (principal); J69.0 Pneumonitis due to inhalation of food and vomit; I96 Gangrene, not elsewhere classified; N39.0 Urinary tract infection, site not specified; J98.11 Atelectasis; G30.9 Alzheimer's disease, unspecified; F02.80 Dementia in other diseases classified elsewhere, unspecified severity, without behavioral disturbance, psychotic disturbance, mood disturbance, and anxiety; I11.9 Hypertensive heart disease without heart failure; M41.9 Scoliosis, unspecified; Z23 Encounter for immunization; E87.6 Hypokalemia; K21.9 Gastro-esophageal reflux disease without esophagitis; E78.5 Hyperlipidemia, unspecified; H40.9 Unspecified glaucoma; I83.90 Asymptomatic varicose veins of unspecified lower extremity; J45.909 Unspecified asthma, uncomplicated; R29.6 Repeated falls; M19.91 Primary osteoarthritis, unspecified site; F32.9 Major depressive disorder, single episode, unspecified; F41.9 Anxiety disorder, unspecified; Z79.82 Long term (current) use of aspirin; Z79.52 Long term (current) use of systemic steroids; Z79.899 Other long term (current) drug therapy; Z86.73 Personal history of transient ischemic attack (TIA), and cerebral infarction without residual deficits; Z97.2 Presence of dental prosthetic device (complete) (partial); Z96.641 Presence of right artificial hip joint; Z87.440 Personal history of urinary (tract) infections; Z87.01 Personal history of pneumonia (recurrent); Z98.49 Cataract extraction status, unspecified eye; Z85.828 Personal history of other malignant neoplasm of skin; Z86.19 Personal history of other infectious and parasitic diseases; Z90.710 Acquired absence of both cervix and uterus; Z80.3 Family history of malignant neoplasm of breast; W06.XXXA Fall from bed, initial encounter
CPT/HCPCS: 36415; 70450; 71045; 71046; 72125; 80053; 81001; 85025; 85610; 85730; 87070; 87075; 87086; 87205; 90686; 94640; 96374; 99285